=== PATIENT | female | born 1955 | race Caucasian/White ===

== ENCOUNTER 2019-01-10 17:21 | Inpatient (IN) | payer BC, OTHER ==
[~2019-01-10 17:21] MED LIST: EPINEPHrine 1 MG/ML SDV IV ONE; Ketamine 500 mg/10 ML MDV IV ONE; Ketorolac 30 MG/ML SDV IVPUSH ONE; Lactated Ringers 1,000 ML IV ONE; Midazolam 1 MG/ML 2 ML SDV IV ONE; Morphine PF 10 MG/10 ML SDV IV ONE; Ondansetron 4 MG/2 ML SDV IVPUSH ONE; Propofol 200 MG/20 ML SDV IV ONE; ceFAZolin 1 GM Vial IV ONE; ePHEDrine 50 MG/ML SDV IV ONE; fentaNYL 100 MCG/2 ML SDV IV ONE
--- NOTE | 2019-01-10 17:39 | EDM.PDOC ---
ED HPI GENERAL MEDICAL PROBLEM - General Stated Complaint: FELL HIP PAIN Time Seen by Provider: 01/10/19 17:25 Source of Information: Reports: Patient History Limitations: Reports: No Limitations - History of Present Illness INITIAL COMMENTS - FREE TEXT/NARRATIVE: 63-year-old female who states she was taking her dog for a walk and she misstepped and slipped with her sandals and fell landing on her right side and hip area. This occurred approximately 5 PM tonight. She did not hit her head. There was no loss of consciousness. She has severe pain in her right hip with any movement and palpation. There is an abrasion to her right elbow but she has full range of motion here and minimal pain. She also has pain in her left foot. She rates pain in her right hip as a 9/10. It is a sharp and spasm-like pain that goes to a 10/10 with any movement or palpitation. No nausea. No abdominal pain. She has normal sensation to her hands and feet. She states that she felt completely well prior to this occurring. There are no other associated signs or symptoms. There are no other modifying factors. Onset: Today (5 PM) Duration: Constant Location: Reports: Lower Extremity, Left (Left foot), Lower Extremity, Right ( Right hip area) Quality: Reports: Sharp, Other (Spasm-like) Severity: Severe Improves with: Reports: Immobilization, Rest Worsens with: Reports: Other (Palpation), Movement Context: Reports: Activity (As above) Associated Symptoms: Reports: No Other Symptoms Treatments J2EE ARCHITECT: Reports: Other (see below) (Nothing) hip right Pain Score (Numeric/FACES): 10 - Related Data Allergies Allergy/AdvReac Type Severity Reaction Status Date / Time X-RAY DDYE Allergy Severe Hives Uncoded 01/10/19 18:38 Home Meds: Home Meds traZODone 200 mg PO BEDTIME 02/08/14 [History] Escitalopram [Lexapro] 10 mg PO DAILY 04/13/14 [History] Pantoprazole Sodium [Protonix] 20 mg PO DAILY 04/13/14 [History] Losartan Potassium 50 mg PO DAILY 01/10/19 [History] Past Medical History Cardiovascular History: Reports: Hypertension Gastrointestinal History: Reports: GERD Psychiatric History: Reports: Anxiety, Depression - Past Surgical History Female Surgical History: Reports: Section (2) Social & Family History - Tobacco Use Smoking Status *Q: Never Smoker - Alcohol Use Alcohol Use History: No - Living Situation & Occupation Occupation: Retired Social History Comment: She is here with her two sons. Review of Systems - Review of Systems Review Of Systems: See Below Constitutional: Reports: No Symptoms, Other (It has been greater than 5 years since her last tetanus immunization.) Eyes: Reports: No Symptoms Ears: Reports: No Symptoms Nose: Reports: No Symptoms Mouth/Throat: Reports: No Symptoms Respiratory: Reports: No Symptoms Cardiovascular: Reports: No Symptoms GI/Abdominal: Reports: No Symptoms Genitourinary: Reports: No Symptoms Musculoskeletal: Reports: Foot Pain (Left foot pain), Joint Pain (Right hip pain ) Skin: Reports: Wound (Abrasion over right elbow) Neurological: Reports: No Symptoms ED EXAM, GENERAL - Physical Exam Exam: See Below Exam Limited By: No Limitations General Appearance: Alert, WD/WN, Moderate Distress Eye Exam: Bilateral Eye: EOMI, Normal Inspection, PERRL Ears: Normal External Exam Ear Exam: Bilateral Ear: Auricle Normal Nose: Normal Inspection, Normal Mucosa, No Blood Throat/Mouth: Normal Inspection, Normal Lips, Normal Oropharynx, Normal Voice, No Airway Compromise Head: Atraumatic, Normocephalic Neck: Normal Inspection, Supple, Non-Tender, Full Range of Motion Respiratory/Chest: No Respiratory Distress, Lungs Clear, Normal Breath Sounds, No Accessory Muscle Use, Chest Non-Tender Cardiovascular: Normal Peripheral Pulses, Regular Rate, Rhythm, No Edema, No JVD Peripheral Pulses: 2+: Radial (L), Radial (R), Dorsalis Pedis (L), Dorsalis Pedis (R) GI/Abdominal: Normal Bowel Sounds, Soft, Non-Tender, No Mass Back Exam: Normal Inspection Extremities: No Pedal Edema, Normal Capillary Refill, Other (Definitely tender over right hip with apparent shortening of the right lower extremity. There is some tenderness with palpation to the left lateral foot but noted bony deformity. There is full active range of motion in the right elbow without pain and there is no deformity.) Neurological: Alert, Oriented, CN II-XII Intact, Normal Cognition, No Motor/ Sensory Deficits Skin Exam: Warm, Dry, Normal Color, No Rash, Wound/Incision (Abrasion over the right elbow.) EKG INTERPRETATION EKG Date: 01/10/19 Time: 19:07 Rhythm: NSR Rate (Beats/Min): 62 [place]: Normal P-Wave: Present QRS: Normal ST-T: Normal QT: Normal Comparison: NA - No Prior EKG Course - Vital Signs Last Recorded V/S: Last Vital Signs Temp 36.4 C 01/10/19 19:25 Pulse 66 01/10/19 19:25 Resp 17 01/10/19 19:25 BP 166/96 H 01/10/19 19:25 Pulse Ox 96 01/10/19 19:25 - Orders/Labs/Meds Orders: Active Orders 24 hr Category Date Time Status EKG Documentation Completion [RC] ASDIRECTED Care 01/10/19 18:32 Active Insert Urinary Catheter [OM.PC] Q24H Care 01/10/19 18:45 Ordered Urinary Catheter Assessment [RC] QSHIFT Care 01/10/19 18:32 Active Vaccines to be Administered [RC] PER UNIT ROUTINE Care 01/10/19 17:42 Active Elbow Min 3V Rt [CR] Stat Exams 01/10/19 19:26 Taken Foot Comp Min 3V Lt [CR] Stat Exams 01/10/19 17:39 Taken Hip Min 2V or 3V w Pelvis Rt [CR] Stat Exams 01/10/19 17:39 Taken Sodium Chloride 0.9% [Normal Saline] 1,000 ml Med 01/10/19 17:45 Active IV ASDIRECTED Sodium Chloride 0.9% [Saline Flush] Med 01/10/19 17:39 Active 10 ml FLUSH ASDIRECTED PRN Peripheral IV Insertion Adult [OM.PC] Routine Oth 01/10/19 17:39 Ordered EKG 12 Lead [EK] Routine Ther 01/10/19 18:31 Ordered Medication Orders Sodium Chloride (Normal Saline) 1,000 mls @ 200 mls/hr IV ASDIRECTED OLIVE Last Admin: 01/10/19 18:40 Dose: 200 mls/hr Sodium Chloride (Saline Flush) 10 ml FLUSH ASDIRECTED PRN PRN Reason: Keep Vein Open Last Admin: 01/10/19 17:53 Dose: 10 ml Labs: Laboratory Tests 01/10/19 01/10/19 01/10/19 Range/Units 17:55 17:55 17:55 WBC 7.4 (4.5-12.0) X10-3/uL RBC 4.68 (3.23-5.20) x10(6)uL Hgb 14.2 (11.5-15.5) g/dL Hct 40.5 (30.0-51.3) % MCV 86.6 (80-96) fL MCH 30.3 (27.7-33.6) pg MCHC 35.0 (32.2-35.4) g/dL RDW 12.0 (11.5-15.5) % Plt Count 213 (125-369) X10(3)uL MPV 8.3 (7.4-10.4) fL Neut % (Auto) 59.4 (46-82) % Lymph % (Auto) 30.6 (13-37) % [place] % (Auto) 7.6 (4-12) % Eos % (Auto) 2 (1.0-5.0) % Baso % (Auto) 0 (0-2) % Neut # (Auto) 4.3 (1.6-8.3) # Lymph # (Auto) 2.3 (0.6-5.0) # [place] # (Auto) 0.6 (0.0-1.3) # Eos # (Auto) 0.2 (0.0-0.8) # Baso # (Auto) 0.0 (0.0-0.2) # PT 10.8 (8.7-11.1) INR 1.11 (0.89-1.13) Sodium 140 (135-145) mmol/L Potassium 3.5 (3.5-5.3) mmol/L Chloride 104 (100-110) mmol/L Carbon Dioxide 29 (21-32) mmol/L BUN 16 (7-18) mg/dL Creatinine 0.7 (0.55-1.02) mg/dL Est Cr Clr Drug Dosing TNP Estimated GFR (MDRD) > 60 (>60) BUN/Creatinine Ratio 22.9 H (9-20) Glucose 123 H (80-116) mg/dL Calcium 8.9 (8.6-10.2) mg/dL Total Bilirubin 0.4 (0.1-1.3) mg/dL AST 18 (5-25) IU/L ALT 33 (12-36) U/L Alkaline Phosphatase 64 (56-112) IU/L Total Protein 6.9 (6.0-8.0) g/dL Albumin 3.8 (3.2-4.6) g/dL Globulin 3.1 g/dL Albumin/Globulin Ratio 1.2 Urine Color (YELLOW) Urine Appearance (CLEAR) Urine pH (5.0-6.5) Ur Specific [place] (1.010-1.025) Urine Protein (NEGATIVE) mg/dL Urine Glucose (UA) (NORMAL) mg/dL Urine Ketones (NEGATIVE) mg/dL Urine Occult Blood (NEGATIVE) Urine Nitrite (NEGATIVE) Urine Bilirubin (NEGATIVE) Urine Urobilinogen (NEGATIVE) mg/dL Ur Leukocyte Esterase (NEGATIVE) Urine RBC (0-5) Urine WBC (0-5) Ur Squamous Epith Cells (NS,R,O) Urine Bacteria (NS) 01/10/19 Range/Units 18:50 WBC (4.5-12.0) X10-3/uL RBC (3.23-5.20) x10(6)uL Hgb (11.5-15.5) g/dL Hct (30.0-51.3) % MCV (80-96) fL MCH (27.7-33.6) pg MCHC (32.2-35.4) g/dL RDW (11.5-15.5) % Plt Count (125-369) X10(3)uL MPV (7.4-10.4) fL Neut % (Auto) (46-82) % Lymph % (Auto) (13-37) % [place] % (Auto) (4-12) % Eos % (Auto) (1.0-5.0) % Baso % (Auto) (0-2) % Neut # (Auto) (1.6-8.3) # Lymph # (Auto) (0.6-5.0) # [place] # (Auto) (0.0-1.3) # Eos # (Auto) (0.0-0.8) # Baso # (Auto) (0.0-0.2) # PT (8.7-11.1) INR (0.89-1.13) Sodium (135-145) mmol/L Potassium (3.5-5.3) mmol/L Chloride (100-110) mmol/L Carbon Dioxide (21-32) mmol/L BUN (7-18) mg/dL Creatinine (0.55-1.02) mg/dL Est Cr Clr Drug Dosing Estimated GFR (MDRD) (>60) BUN/Creatinine Ratio (9-20) Glucose (80-116) mg/dL Calcium (8.6-10.2) mg/dL Total Bilirubin (0.1-1.3) mg/dL AST (5-25) IU/L ALT (12-36) U/L Alkaline Phosphatase (56-112) IU/L Total Protein (6.0-8.0) g/dL Albumin (3.2-4.6) g/dL Globulin g/dL Albumin/Globulin Ratio Urine Color Yellow (YELLOW) Urine Appearance Clear (CLEAR) Urine pH 5.0 (5.0-6.5) Ur Specific [place] 1.020 (1.010-1.025) Urine Protein Negative (NEGATIVE) mg/dL Urine Glucose (UA) Normal (NORMAL) mg/dL Urine Ketones Negative (NEGATIVE) mg/dL Urine Occult Blood Negative (NEGATIVE) Urine Nitrite Negative (NEGATIVE) Urine Bilirubin Negative (NEGATIVE) Urine Urobilinogen Normal (NEGATIVE) mg/dL Ur Leukocyte Esterase Negative (NEGATIVE) Urine RBC 0-5 (0-5) Urine WBC 0-5 (0-5) Ur Squamous Epith Cells Occasional (NS,R,O) Urine Bacteria Rare H (NS) Meds: Medications Generic Name Dose Route Start Last Admin Trade Name Freq PRN Reason Stop Dose Admin Sodium Chloride 1,000 mls @ 200 mls/hr 01/10/19 17:45 01/10/19 18:40 Normal Saline IV 200 mls/hr ASDIRECTED OLIVE Administration Sodium Chloride 10 ml 01/10/19 17:39 01/10/19 17:53 Saline Flush FLUSH 10 ml ASDIRECTED PRN Administration Keep Vein Open Discontinued Medications Generic Name Dose Route Start Last Admin Trade Name Freq PRN Reason Stop Dose Admin Diphtheria/Tetanus/Acell Pertussis 0.5 ml 01/10/19 17:41 01/10/19 18:45 Adacel IM 01/10/19 17:42 0.5 ml .ONCE ONE Administration Hydromorphone HCl 1 mg 01/10/19 18:33 01/10/19 18:40 Dilaudid IVPUSH 01/10/19 18:34 1 mg ONETIME ONE Administration Morphine Sulfate 4 mg 01/10/19 17:41 01/10/19 17:53 Morphine IVPUSH 01/10/19 17:42 4 mg ONETIME ONE Administration Ondansetron HCl 4 mg 01/10/19 17:41 01/10/19 17:50 Zofran IVPUSH 01/10/19 17:42 4 mg ONETIME ONE Administration - Radiology Interpretation Free Text/Narrative:: X-ray of right hip and pelvis shows a right subcapital hip fracture that is displaced and possibly a greater trochanter fracture. X-ray of left foot shows a proximal fifth metatarsal fracture that is somewhat displaced. X-ray of right elbow shows no acute fracture. - Re-Assessments/Exams Free Text/Narrative Re-Assessment/Exam: 01/10/19 18:35: Patient has a right subcapital hip fracture on x-rays. She also has a left proximal fifth metatarsal fracture. She is still in quite a bit of pain that she would rate as a 9-10/10 and she appears quite uncomfortable. I will give the patient Dilaudid 1 mg IV and discussing this with the patient, a [place] catheter will be placed secondary to the severe pain that the patient has movement. She will need orthopedic specially services with repair of the right hip fracture. I will attempt to get in touch with Dr. Amin, orthopedist, in regard to this as the patient would prefer staying here for her care if possible. 01/10/19 19:45: I was able to contact Dr. Amin and he is able to provide orthopedic specially services and would plan on operative repair of the patient' s right hip on 01/11/2019. Therefore, I will admit the patient here with Dr. Connelly to assume care of the patient at 7 AM on 01/09/2019. She is somewhat improved after the pain medication but still has spasming type pain. She is vitally stable with O2 saturations of 96% range. The Hernandez fracture of her left foot will be treated with an orthotic boot for now. I will place admission orders. I discussed this with the patient and with her family and they are very much in agreement with the plans for being admitted here with Dr. Amin doing operative repair of her right hip. In addition, the patient's right elbow showed no evidence of acute fracture. Departure - Departure Time of Disposition: 19:55 Disposition: Admitted As Inpatient 65 Condition: Fair (Stable) Clinical Impression: Abrasion of right elbow, initial encounter, Contusion of right elbow, initial encounter Subcapital fracture of right hip Qualifiers: Encounter type: initial encounter Fracture type: closed Qualified Code(s): S72.011A - Unspecified intracapsular fracture of right femur, initial encounter for closed fracture Fracture of fifth metatarsal bone of left foot Qualifiers: Encounter type: initial encounter Fracture type: closed Fracture alignment: displaced Qualified Code(s): S92.352A - Displaced fracture of fifth metatarsal bone, left foot, initial encounter for closed fracture Fall from standing Qualifiers: Encounter type: initial encounter Qualified Code(s): W19.XXXA - Unspecified fall, initial encounter - Discharge Information Referrals: Mulugeta Rosa MD [Primary Care Provider] - - My Orders Last 24 Hours: My Active Orders 01/10/19 17:39 Foot Comp Min 3V Lt [CR] Stat Hip Min 2V or 3V w Pelvis Rt [CR] Stat Sodium Chloride 0.9% [Saline Flush] 10 ml FLUSH ASDIRECTED PRN Peripheral IV Insertion Adult [OM.PC] Routine 01/10/19 17:42 Vaccines to be Administered [RC] PER UNIT ROUTINE 01/10/19 17:45 Sodium Chloride 0.9% [Normal Saline] 1,000 ml IV ASDIRECTED 01/10/19 18:31 EKG 12 Lead [EK] Routine 01/10/19 18:32 EKG Documentation Completion [RC] ASDIRECTED Urinary Catheter Assessment [RC] QSHIFT 01/10/19 18:45 Insert Urinary Catheter [OM.PC] Q24H 01/10/19 19:26 Elbow Min 3V Rt [CR] Stat - Assessment/Plan Last 24 Hours: My Active Orders 01/10/19 17:39 Foot Comp Min 3V Lt [CR] Stat Hip Min 2V or 3V w Pelvis Rt [CR] Stat Sodium Chloride 0.9% [Saline Flush] 10 ml FLUSH ASDIRECTED PRN Peripheral IV Insertion Adult [OM.PC] Routine 01/10/19 17:42 Vaccines to be Administered [RC] PER UNIT ROUTINE 01/10/19 17:45 Sodium Chloride 0.9% [Normal Saline] 1,000 ml IV ASDIRECTED 01/10/19 18:31 EKG 12 Lead [EK] Routine 01/10/19 18:32 EKG Documentation Completion [RC] ASDIRECTED Urinary Catheter Assessment [RC] QSHIFT 01/10/19 18:45 Insert Urinary Catheter [OM.PC] Q24H 01/10/19 19:26 Elbow Min 3V Rt [CR] Stat
[2019-01-10] MEDS ORDERED: Morphine 4 MG/ML Syringe IVPUSH ONE (17:41)
[2019-01-10] MEDS ORDERED: Diphtheria,Pertussis(Acell),Tetanus Vaccine 0.5 ML SDV IM ONE (17:41)
[2019-01-10] MEDS ORDERED: Ondansetron 4 MG/2 ML SDV IVPUSH ONE (17:41)
[2019-01-10] MEDS ORDERED: Sodium Chloride 0.9% 1,000 ML IV SCH (17:45)
[2019-01-10] MEDS: Sodium Chloride 0.9% 10 ML Syringe FLUSH PRN (17:53)
[2019-01-10] MEDS ORDERED: HYDROmorphone 2 MG/ML SDV IVPUSH ONE (18:33)
[2019-01-10] MEDS ORDERED: Ondansetron 4 MG/2 ML SDV IV PRN (20:03)
[2019-01-10] MEDS: HYDROmorphone 2 MG/ML SDV IVPUSH PRN ×2 (20:33→22:57)
[2019-01-11] MEDS ORDERED: Ketorolac 30 MG/ML SDV IVPUSH SCH
[2019-01-11] MEDS: HYDROmorphone 2 MG/ML SDV IVPUSH PRN ×5 (01:01→13:15)
[2019-01-11] MEDS: Sodium Chloride 0.9% 1,000 ML IV SCH ×2 (01:09→09:00)
--- NOTE | 2019-01-11 08:42 | PCM.CONS ---
H&P History of Present Illness - General Date of Service: 01/11/19 Admit Problem/Dx: Admission Diagnosis/Problem Admission Diagnosis/Problem Hip fracture requiring operative repair Source of Information: Patient, Provider History Limitations: Reports: No Limitations - History of Present Illness Onset of Symptoms: Reports: Sudden Symptom Onset Date: 01/10/19 Duration of Symptoms: Reports: Day(s): Location: Reports: Lower Extremity, Left, Lower Extremity, Right Quality: Reports: Ache, Stabbing, Throbbing Severity: Moderate Improves with: Reports: Immobilization Worsens with: Reports: Movement Associated Symptoms: Reports: No Other Symptoms hip right Pain Score (Numeric/FACES): 8 - Related Data Allergies/Adverse Reactions: Allergies Allergy/AdvReac Type Severity Reaction Status Date / Time X-RAY DDYE Allergy Severe Hives Uncoded 01/10/19 18:38 Home Medications: Home Meds traZODone 200 mg PO BEDTIME 02/08/14 [History] Escitalopram [Lexapro] 10 mg PO DAILY 04/13/14 [History] Pantoprazole Sodium [Protonix] 20 mg PO DAILY 04/13/14 [History] Losartan Potassium 50 mg PO DAILY 01/10/19 [History] Past Medical History HEENT History: Reports: Impaired Vision Cardiovascular History: Reports: Hypertension Gastrointestinal History: Reports: GERD 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: Psychiatric History: Reports: Anxiety, Depression Endocrine/Metabolic History: Reports: Obesity/BMI 30+ - Past Surgical History GI Surgical History: Reports: Colonoscopy, Polypectomy Female Surgical History: Reports: Section Social & Family History - Tobacco Use Smoking Status *Q: Former Smoker Used Tobacco, but Quit: Yes Month/Year Tobacco Last Used: 2014 - Caffeine Use Caffeine Use: Reports: Coffee, Energy Drinks, Soda - Recreational Drug Use Recreational Drug Use: No - Living Situation & Occupation Occupation: Retired H&P Review of Systems - Review of Systems: Review Of Systems: See Below General: Reports: No Symptoms HEENT: Reports: No Symptoms Pulmonary: Reports: No Symptoms Cardiovascular: Reports: No Symptoms Gastrointestinal: Reports: No Symptoms Genitourinary: Reports: No Symptoms Musculoskeletal: Reports: Leg Pain, Foot Pain, Joint Pain, Joint Swelling Skin: Reports: No Symptoms Psychiatric: Reports: No Symptoms Neurological: Reports: No Symptoms Hematologic/Lymphatic: Reports: No Symptoms Immunologic: Reports: No Symptoms Exam - Exam Exam: See Below - Vital Signs Vital Signs: Last Vital Signs Temp 98.5 F 01/11/19 06:10 Pulse 73 01/11/19 06:10 Resp 18 01/11/19 06:10 BP 126/83 01/11/19 06:10 Pulse Ox 93 L 01/11/19 06:10 Weight: 165 lb 3.2 oz - Exam General: Alert, Oriented, Cooperative, Mild Distress HEENT: PERRLA, EOMI, Hearing Intact, Pupils Equal, Pupils Reactive Neck: Supple, Trachea Midline Lungs: Normal Respiratory Effort GI/Abdominal Exam: No Distention Extremities: No Pedal Edema, Leg Pain Peripheral Pulses: 2+: Posterior Tibial (L), Posterior Tibial (R), Dorsalis Pedis (L), Dorsalis Pedis (R) Skin: Warm, Dry, Intact Neuro Extensive - Mental Status: Alert, Oriented x3, Normal Mood/Affect, Normal Cognition, Memory Intact Psychiatric: Alert, Normal Affect - Patient Data Lab Results Last 24 hrs: Laboratory Results - last 24 hr 01/10/19 01/10/19 01/10/19 Range/Units 17:55 17:55 17:55 WBC 7.4 (4.5-12.0) X10-3/uL RBC 4.68 (3.23-5.20) x10(6)uL Hgb 14.2 (11.5-15.5) g/dL Hct 40.5 (30.0-51.3) % MCV 86.6 (80-96) fL MCH 30.3 (27.7-33.6) pg MCHC 35.0 (32.2-35.4) g/dL RDW 12.0 (11.5-15.5) % Plt Count 213 (125-369) X10(3)uL MPV 8.3 (7.4-10.4) fL Neut % (Auto) 59.4 (46-82) % Lymph % (Auto) 30.6 (13-37) % [place] % (Auto) 7.6 (4-12) % Eos % (Auto) 2 (1.0-5.0) % Baso % (Auto) 0 (0-2) % Neut # (Auto) 4.3 (1.6-8.3) # Lymph # (Auto) 2.3 (0.6-5.0) # [place] # (Auto) 0.6 (0.0-1.3) # Eos # (Auto) 0.2 (0.0-0.8) # Baso # (Auto) 0.0 (0.0-0.2) # PT 10.8 (8.7-11.1) INR 1.11 (0.89-1.13) Sodium 140 (135-145) mmol/L Potassium 3.5 (3.5-5.3) mmol/L Chloride 104 (100-110) mmol/L Carbon Dioxide 29 (21-32) mmol/L BUN 16 (7-18) mg/dL Creatinine 0.7 (0.55-1.02) mg/dL Est Cr Clr Drug Dosing TNP Estimated GFR (MDRD) > 60 (>60) BUN/Creatinine Ratio 22.9 H (9-20) Glucose 123 H (80-116) mg/dL Calcium 8.9 (8.6-10.2) mg/dL Total Bilirubin 0.4 (0.1-1.3) mg/dL AST 18 (5-25) IU/L ALT 33 (12-36) U/L Alkaline Phosphatase 64 (56-112) IU/L Total Protein 6.9 (6.0-8.0) g/dL Albumin 3.8 (3.2-4.6) g/dL Globulin 3.1 g/dL Albumin/Globulin Ratio 1.2 Urine Color (YELLOW) Urine Appearance (CLEAR) Urine pH (5.0-6.5) Ur Specific [place] (1.010-1.025) Urine Protein (NEGATIVE) mg/dL Urine Glucose (UA) (NORMAL) mg/dL Urine Ketones (NEGATIVE) mg/dL Urine Occult Blood (NEGATIVE) Urine Nitrite (NEGATIVE) Urine Bilirubin (NEGATIVE) Urine Urobilinogen (NEGATIVE) mg/dL Ur Leukocyte Esterase (NEGATIVE) Urine RBC (0-5) Urine WBC (0-5) Ur Squamous Epith Cells (NS,R,O) Urine Bacteria (NS) Blood Type Gel Antibody Screen 01/10/19 01/10/19 Range/Units 18:05 18:50 WBC (4.5-12.0) X10-3/uL RBC (3.23-5.20) x10(6)uL Hgb (11.5-15.5) g/dL Hct (30.0-51.3) % MCV (80-96) fL MCH (27.7-33.6) pg MCHC (32.2-35.4) g/dL RDW (11.5-15.5) % Plt Count (125-369) X10(3)uL MPV (7.4-10.4) fL Neut % (Auto) (46-82) % Lymph % (Auto) (13-37) % [place] % (Auto) (4-12) % Eos % (Auto) (1.0-5.0) % Baso % (Auto) (0-2) % Neut # (Auto) (1.6-8.3) # Lymph # (Auto) (0.6-5.0) # [place] # (Auto) (0.0-1.3) # Eos # (Auto) (0.0-0.8) # Baso # (Auto) (0.0-0.2) # PT (8.7-11.1) INR (0.89-1.13) Sodium (135-145) mmol/L Potassium (3.5-5.3) mmol/L Chloride (100-110) mmol/L Carbon Dioxide (21-32) mmol/L BUN (7-18) mg/dL Creatinine (0.55-1.02) mg/dL Est Cr Clr Drug Dosing Estimated GFR (MDRD) (>60) BUN/Creatinine Ratio (9-20) Glucose (80-116) mg/dL Calcium (8.6-10.2) mg/dL Total Bilirubin (0.1-1.3) mg/dL AST (5-25) IU/L ALT (12-36) U/L Alkaline Phosphatase (56-112) IU/L Total Protein (6.0-8.0) g/dL Albumin (3.2-4.6) g/dL Globulin g/dL Albumin/Globulin Ratio Urine Color Yellow (YELLOW) Urine Appearance Clear (CLEAR) Urine pH 5.0 (5.0-6.5) Ur Specific [place] 1.020 (1.010-1.025) Urine Protein Negative (NEGATIVE) mg/dL Urine Glucose (UA) Normal (NORMAL) mg/dL Urine Ketones Negative (NEGATIVE) mg/dL Urine Occult Blood Negative (NEGATIVE) Urine Nitrite Negative (NEGATIVE) Urine Bilirubin Negative (NEGATIVE) Urine Urobilinogen Normal (NEGATIVE) mg/dL Ur Leukocyte Esterase Negative (NEGATIVE) Urine RBC 0-5 (0-5) Urine WBC 0-5 (0-5) Ur Squamous Epith Cells Occasional (NS,R,O) Urine Bacteria Rare H (NS) Blood Type O POSITIVE Gel Antibody Screen Negative Result Diagrams: 01/10/19 17:55 01/10/19 17:55 Consult PN Assessment/Plan POD#: 0 Procedures: Procedures ASSAY OF AMYLASE (04/13/14) ASSAY OF ETHANOL (04/13/14) CHEST X-RAY 2VW FRONTAL&LATL (04/13/14) COLONOSCOPY W/LESION REMOVAL (02/09/14) COMPLETE CBC W/AUTO DIFF WBC (04/13/14) COMPREHEN METABOLIC PANEL (04/13/14) EGD BIOPSY SINGLE/MULTIPLE (02/09/14) EMERGENCY DEPT VISIT (04/13/14) EMERGENCY DEPT VISIT (04/13/14) RBC SED RATE NONAUTOMATED (04/13/14) ROUTINE VENIPUNCTURE (04/13/14) TISSUE EXAM BY PATHOLOGIST (02/09/14) URINALYSIS AUTO W/SCOPE (04/13/14) (1) Fracture of fifth metatarsal bone of left foot SNOMED Code(s): 141993857 Code(s): S92.352A - DISP FX OF FIFTH METATARSAL BONE, LEFT FOOT, INIT Current Visit: Yes Qualifiers: Encounter type: initial encounter Fracture type: closed Fracture alignment: displaced Qualified Code(s): S92.352A - Displaced fracture of fifth metatarsal bone, left foot, initial encounter for closed fracture (2) Subcapital fracture of right hip SNOMED Code(s): 799379387 Code(s): S72.011A - UNSP INTRACAPSULAR FRACTURE OF RIGHT FEMUR, INIT FOR CLOS FX Current Visit: Yes Qualifiers: Encounter type: initial encounter Fracture type: closed Qualified Code(s) : S72.011A - Unspecified intracapsular fracture of right femur, initial encounter for closed fracture Problem List Initiated/Reviewed/Updated: Yes Plan: Plan: To OR today for R hip hemiarthroplasty. No hx of right groin pain. Advised recommended left 5th MT base fx ORIF with headless compression screws. Will plan to swing bed due to polytrauma with difficulty weight bearing. Will plan on PT/OT/DVT prophylaxis post op. BDS
[2019-01-11] MEDS: Sodium Chloride 0.9% 10 ML Syringe FLUSH PRN ×2 (08:59→11:26)
--- NOTE | 2019-01-11 09:19 | PCM.HP ---
H&P History of Present Illness - General Date of Service: 01/11/19 Admit Problem/Dx: Admission Diagnosis/Problem Admission Diagnosis/Problem Hip fracture requiring operative repair Source of Information: Patient, Old Records History Limitations: Reports: No Limitations - History of Present Illness Initial Comments - Free Text/Narative: Tashia is a 63 yo female that fell and sustained a left hip fracture,and left foot fracture. She is healthy with the exception of HTN,mood disorder and tobacco abuse. hip right Pain Score (Numeric/FACES): 8 - Related Data Allergies/Adverse Reactions: Allergies Allergy/AdvReac Type Severity Reaction Status Date / Time X-RAY DDYE Allergy Severe Hives Uncoded 01/10/19 18:38 Home Medications: Home Meds traZODone 200 mg PO BEDTIME PRN 02/08/14 [History] Losartan Potassium 50 mg PO DAILY 01/10/19 [History] Escitalopram [Lexapro] 20 mg PO DAILY 01/11/19 [History] Loratadine [Claritin] 10 mg PO DAILY 01/11/19 [History] Pantoprazole [ProTONIX] 40 mg PO DAILY 01/11/19 [History] Past Medical History HEENT History: Reports: Impaired Vision Cardiovascular History: Reports: Hypertension Gastrointestinal History: Reports: GERD 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: Other OB/BYN History: Psychiatric History: Reports: Anxiety, Depression Endocrine/Metabolic History: Reports: Obesity/BMI 30+ - Past Surgical History GI Surgical History: Reports: Colonoscopy, Polypectomy Female Surgical History: Reports: Section Social & Family History - Tobacco Use Smoking Status *Q: Former Smoker Used Tobacco, but Quit: Yes Month/Year Tobacco Last Used: 2014 - Caffeine Use Caffeine Use: Reports: Coffee, Energy Drinks, Soda - Recreational Drug Use Recreational Drug Use: No - Living Situation & Occupation Occupation: Retired H&P Review of Systems - Review of Systems: Review Of Systems: ROS reveals no pertinent complaints other than HPI. Exam - Exam Exam: See Below - Vital Signs Vital Signs: Last Vital Signs Temp 98.5 F 01/11/19 06:10 Pulse 73 01/11/19 06:10 Resp 18 01/11/19 06:10 BP 126/83 01/11/19 06:10 Pulse Ox 93 L 01/11/19 06:10 Weight: 74.933 kg - Exam Quality Assessment: Supplemental Oxygen General: Alert, Oriented, 4 HEENT: PERRLA, Hearing Intact, Mucosa Moist & [place], Nares Patent, Normal Nasal Septum, Posterior Pharynx Clear, Conjunctiva Clear, EOMI, EACs Clear, TMs Clear Neck: Supple, Trachea Midline, 2 Lungs: Clear to Auscultation, Normal Respiratory Effort Cardiovascular: Regular Rate, Regular Rhythm GI/Abdominal Exam: Normal Bowel Sounds, Soft, Non-Tender, No Organomegaly, No Distention, No Abnormal Bruit, No Mass, Pelvis Stable (Female) Exam: Deferred Rectal (Female) Exam: Deferred Back Exam: No: Full Range of Motion Extremities: No: Normal Range of Motion Skin: Warm, Dry, Intact Neurological: Cranial Nerves Intact, Reflexes Equal Bilateral Neuro Extensive - Mental Status: Alert, Oriented x3, Normal Mood/Affect, Normal Cognition Neuro Extensive - Motor, Sensory, Reflexes: CN II-XII Intact, Normal Gait, Normal Reflexes Psychiatric: Alert, Normal Affect, Normal Mood - Patient Data Lab Results Last 24 hrs: Laboratory Results - last 24 hr 01/10/19 01/10/19 01/10/19 Range/Units 17:55 17:55 17:55 WBC 7.4 (4.5-12.0) X10-3/uL RBC 4.68 (3.23-5.20) x10(6)uL Hgb 14.2 (11.5-15.5) g/dL Hct 40.5 (30.0-51.3) % MCV 86.6 (80-96) fL MCH 30.3 (27.7-33.6) pg MCHC 35.0 (32.2-35.4) g/dL RDW 12.0 (11.5-15.5) % Plt Count 213 (125-369) X10(3)uL MPV 8.3 (7.4-10.4) fL Neut % (Auto) 59.4 (46-82) % Lymph % (Auto) 30.6 (13-37) % Granite % (Auto) 7.6 (4-12) % Eos % (Auto) 2 (1.0-5.0) % Baso % (Auto) 0 (0-2) % Neut # (Auto) 4.3 (1.6-8.3) # Lymph # (Auto) 2.3 (0.6-5.0) # Granite # (Auto) 0.6 (0.0-1.3) # Eos # (Auto) 0.2 (0.0-0.8) # Baso # (Auto) 0.0 (0.0-0.2) # PT 10.8 (8.7-11.1) INR 1.11 (0.89-1.13) Sodium 140 (135-145) mmol/L Potassium 3.5 (3.5-5.3) mmol/L Chloride 104 (100-110) mmol/L Carbon Dioxide 29 (21-32) mmol/L BUN 16 (7-18) mg/dL Creatinine 0.7 (0.55-1.02) mg/dL Est Cr Clr Drug Dosing TNP Estimated GFR (MDRD) > 60 (>60) BUN/Creatinine Ratio 22.9 H (9-20) Glucose 123 H (80-116) mg/dL Calcium 8.9 (8.6-10.2) mg/dL Total Bilirubin 0.4 (0.1-1.3) mg/dL AST 18 (5-25) IU/L ALT 33 (12-36) U/L Alkaline Phosphatase 64 (56-112) IU/L Total Protein 6.9 (6.0-8.0) g/dL Albumin 3.8 (3.2-4.6) g/dL Globulin 3.1 g/dL Albumin/Globulin Ratio 1.2 Urine Color (YELLOW) Urine Appearance (CLEAR) Urine pH (5.0-6.5) Ur Specific [place] (1.010-1.025) Urine Protein (NEGATIVE) mg/dL Urine Glucose (UA) (NORMAL) mg/dL Urine Ketones (NEGATIVE) mg/dL Urine Occult Blood (NEGATIVE) Urine Nitrite (NEGATIVE) Urine Bilirubin (NEGATIVE) Urine Urobilinogen (NEGATIVE) mg/dL Ur Leukocyte Esterase (NEGATIVE) Urine RBC (0-5) Urine WBC (0-5) Ur Squamous Epith Cells (NS,R,O) Urine Bacteria (NS) Blood Type Gel Antibody Screen 01/10/19 01/10/19 Range/Units 18:05 18:50 WBC (4.5-12.0) X10-3/uL RBC (3.23-5.20) x10(6)uL Hgb (11.5-15.5) g/dL Hct (30.0-51.3) % MCV (80-96) fL MCH (27.7-33.6) pg MCHC (32.2-35.4) g/dL RDW (11.5-15.5) % Plt Count (125-369) X10(3)uL MPV (7.4-10.4) fL Neut % (Auto) (46-82) % Lymph % (Auto) (13-37) % Granite % (Auto) (4-12) % Eos % (Auto) (1.0-5.0) % Baso % (Auto) (0-2) % Neut # (Auto) (1.6-8.3) # Lymph # (Auto) (0.6-5.0) # Granite # (Auto) (0.0-1.3) # Eos # (Auto) (0.0-0.8) # Baso # (Auto) (0.0-0.2) # PT (8.7-11.1) INR (0.89-1.13) Sodium (135-145) mmol/L Potassium (3.5-5.3) mmol/L Chloride (100-110) mmol/L Carbon Dioxide (21-32) mmol/L BUN (7-18) mg/dL Creatinine (0.55-1.02) mg/dL Est Cr Clr Drug Dosing Estimated GFR (MDRD) (>60) BUN/Creatinine Ratio (9-20) Glucose (80-116) mg/dL Calcium (8.6-10.2) mg/dL Total Bilirubin (0.1-1.3) mg/dL AST (5-25) IU/L ALT (12-36) U/L Alkaline Phosphatase (56-112) IU/L Total Protein (6.0-8.0) g/dL Albumin (3.2-4.6) g/dL Globulin g/dL Albumin/Globulin Ratio Urine Color Yellow (YELLOW) Urine Appearance Clear (CLEAR) Urine pH 5.0 (5.0-6.5) Ur Specific [place] 1.020 (1.010-1.025) Urine Protein Negative (NEGATIVE) mg/dL Urine Glucose (UA) Normal (NORMAL) mg/dL Urine Ketones Negative (NEGATIVE) mg/dL Urine Occult Blood Negative (NEGATIVE) Urine Nitrite Negative (NEGATIVE) Urine Bilirubin Negative (NEGATIVE) Urine Urobilinogen Normal (NEGATIVE) mg/dL Ur Leukocyte Esterase Negative (NEGATIVE) Urine RBC 0-5 (0-5) Urine WBC 0-5 (0-5) Ur Squamous Epith Cells Occasional (NS,R,O) Urine Bacteria Rare H (NS) Blood Type O POSITIVE Gel Antibody Screen Negative Result Diagrams: 01/10/19 17:55 01/10/19 17:55 EKG INTERPRETATION EKG Date: 01/10/19 Rhythm: NSR - Problem List (1) Fall from standing SNOMED Code(s): 5052162 ICD Code: W19.XXXA - UNSPECIFIED FALL, INITIAL ENCOUNTER Status: Acute Current Visit: Yes Qualifiers: Encounter type: initial encounter Qualified Code(s): W19.XXXA - Unspecified fall, initial encounter (2) HTN (hypertension) SNOMED Code(s): 37167780 ICD Code: I10 - ESSENTIAL (PRIMARY) HYPERTENSION Status: Acute Current Visit: Yes Qualifiers: Hypertension type: essential hypertension Qualified Code(s): I10 - Essential (primary) hypertension (3) Fracture of fifth metatarsal bone of left foot SNOMED Code(s): 975365685 ICD Code: S92.352A - DISP FX OF FIFTH METATARSAL BONE, LEFT FOOT, INIT Status: Acute Current Visit: Yes Qualifiers: Encounter type: initial encounter Fracture type: closed Fracture alignment: displaced Qualified Code(s): S92.352A - Displaced fracture of fifth metatarsal bone, left foot, initial encounter for closed fracture (4) Subcapital fracture of right hip SNOMED Code(s): 663641602 ICD Code: S72.011A - UNSP INTRACAPSULAR FRACTURE OF RIGHT FEMUR, INIT FOR CLOS FX Status: Acute Current Visit: Yes Qualifiers: Encounter type: initial encounter Fracture type: closed Qualified Code(s) : S72.011A - Unspecified intracapsular fracture of right femur, initial encounter for closed fracture Problem List Initiated/Reviewed/Updated: Yes Orders Last 24hrs: Active Orders 24 hr Category Date Time Status Admission Status [Patient Status] [ADT] Routine ADT 01/10/19 20:00 Active Cardiac Monitoring [RC] .As Directed Care 01/10/19 20:00 Active Height and Weight [RC] 06 Care 01/10/19 20:03 Active Insert Urinary Catheter [OM.PC] Q24H Care 01/10/19 18:45 Ordered Intake and Output [RC] 06,14,22 Care 01/10/19 20:05 Active Notify Provider Consults [RC] ASDIRECTED Care 01/10/19 20:09 Active Oxygen Therapy [RC] PRN Care 01/10/19 20:03 Active Pulse Oximetry [RC] CONTINUOUS Care 01/10/19 20:05 Active Urinary Catheter Assessment [RC] 00,08,16 Care 01/10/19 18:32 Active Vital Signs [RC] 00,04,08,12,16,20 Care 01/10/19 20:03 Active Consult to Physician [CONS] Routine Cons 01/10/19 20:03 Ordered Nothing per Oral After Midnight Diet [DIET] Diet 01/10/19 Dinner Active Elbow Min 3V Rt [CR] Stat Exams 01/10/19 19:26 Taken Foot Comp Min 3V Lt [CR] Stat Exams 01/10/19 17:39 Taken Hip Min 2V or 3V w Pelvis Rt [CR] Stat Exams 01/10/19 17:39 Taken HYDROmorphone [Dilaudid] Med 01/10/19 20:03 Active 0.5 mg IVPUSH Q2H PRN Ondansetron [Zofran] Med 01/10/19 20:03 Active 4 mg IV Q6H PRN Sodium Chloride 0.9% [Normal Saline] 1,000 ml Med 01/10/19 20:15 Active IV ASDIRECTED Sodium Chloride 0.9% [Saline Flush] Med 01/10/19 17:39 Active 10 ml FLUSH ASDIRECTED PRN Peripheral IV Insertion Adult [OM.PC] Routine Oth 01/10/19 17:39 Ordered Resuscitation Status Routine Resus Stat 01/10/19 20:03 Ordered EKG 12 Lead [EK] Routine Ther 01/10/19 18:31 Stop Req Medication Orders Hydromorphone HCl (Dilaudid) 0.5 mg IVPUSH Q2H PRN PRN Reason: Pain (severe 7-10) Last Admin: 01/11/19 08:58 Dose: 0.5 mg Admin: 01/11/19 06:18 Dose: 0.5 mg Admin: 01/11/19 01:01 Dose: 0.5 mg Admin: 01/10/19 22:57 Dose: 0.5 mg Admin: 01/10/19 20:33 Dose: 0.5 mg Sodium Chloride (Normal Saline) 1,000 mls @ 125 mls/hr IV ASDIRECTED [facility] Last Admin: 01/11/19 09:00 Dose: 125 mls/hr Infusion: 01/11/19 09:00 Dose: 125 mls/hr Admin: 01/11/19 01:09 Dose: 125 mls/hr Ondansetron HCl (Zofran) 4 mg IV Q6H PRN PRN Reason: Nausea/Vomiting Sodium Chloride (Saline Flush) 10 ml FLUSH ASDIRECTED PRN PRN Reason: Keep Vein Open Last Admin: 01/11/19 08:59 Dose: 10 ml Admin: 01/10/19 17:53 Dose: 10 ml Assessment/Plan Comment:: She had mild hypoxia after Dilaudid. She is low risk for procedure planned. Resume home Meds after surgery
[2019-01-11] MEDS ORDERED: Sennosides 8.6 MG Tab PO PRN (13:43)
[2019-01-11] MEDS ORDERED: Ondansetron 4 MG/2 ML SDV IVPUSH PRN (13:43)
[2019-01-11] MEDS ORDERED: Naloxone 0.4 MG/ML SDV IVPUSH PRN ×2 (13:43→16:32)
[2019-01-11] MEDS ORDERED: Bisacodyl 5 MG Tab PO PRN (13:43)
[2019-01-11] MEDS ORDERED: Sodium Chloride 0.9% 10 ML Syringe FLUSH PRN (13:43)
[2019-01-11] MEDS ORDERED: diphenhydrAMINE 50 MG/ML SDV IVPUSH PRN (13:43)
[2019-01-11] MEDS ORDERED: Magnesium Hydroxide 400 MG/5 ML Susp 30 ML Cup PO PRN (13:43)
[2019-01-11] MEDS ORDERED: Docusate Sodium 100 MG Cap PO PRN (13:43)
[2019-01-11] MEDS ORDERED: Morphine 2 MG/ML Syringe IVPUSH PRN (13:43)
[2019-01-11] MEDS ORDERED: Ropivacaine 49.25 ML, Ketorolac 30 MG, EPINEPHrine 0.5 MG, cloNIDine 80 MCG, Sodium Chl... INJECT SCH ×5 (14:00)
[2019-01-11] MEDS ORDERED: Tranexamic Acid 3,000 MG, Sodium Chloride 0.9% 100 ML IRR ONE ×2 (14:15)
[2019-01-11] MEDS ORDERED: Bupivacaine 0.5%/EPINEPHrine 1:200,000 50 ML MDV INJECT ONE (16:00)
--- NOTE | 2019-01-11 16:12 | PCM.OPNOTE ---
- General Post-Op/Procedure Note Date of Surgery/Procedure: 01/11/19 Operative Procedure(s): 1) right hip bipolar hemiarthroplasty. 2) orif left 5th metatarsal base Pre Op Diagnosis: 1) right hip subcapital neck fracture, closed. 2) 5th metatarsal base fracture, left, closed Post-Op Diagnosis: Same Anesthesia Technique: Combo Spinal/Epidural, Local, MAC Primary Surgeon: Wesley Amin Anesthesia Provider: Cinda Zamorano Spine Nurse: Natividad Morrow EBL in mLs: 150 Complications: None Condition: Fair Free Text/Narrative:: Intake & Output 01/11/19 01/11/19 01/11/19 06:59 14:59 22:59 Intake Total 885 858 Output Total 375 450 Balance 510 408
[2019-01-11] MEDS ORDERED: Nalbuphine 10 MG/1 ML Vial IVPUSH PRN (16:32)
[2019-01-11] MEDS: Acetaminophen 650 MG Tab.ER PO SCH ×2 (18:23→21:08)
[2019-01-11] MEDS: ceFAZolin 2 GM in Premix Bag 1 BAG IV SCH (21:08)
--- NOTE | 2019-01-11 21:24 | OR ---
DATE OF OPERATION: 01/11/2019 SURGEON: Wesley Amin DO PREOPERATIVE DIAGNOSES: 1. Right femoral neck fracture, closed. 2. Left 5th metatarsal base fracture, closed. POSTOPERATIVE DIAGNOSES: 1. Right femoral neck fracture, closed. 2. Left 5th metatarsal base fracture, closed. PROCEDURE: 1. Right hip bipolar hemiarthroplasty using DePuy size 3 femur, 28/45 mm bipolar head, 1.5 neck. 2. Open reduction and internal fixation, left 5th metatarsal base fracture. CHIEF LEARNING OFFICER: Natividad Morrow NP Nurse practitioner, Natividad Morrow NP, played an essential role in assisting in this case, helping to position the patient, retract structures as needed, as well as suturing and cutting sutures as indicated. Her presence improved patient's safety and decreased operative time. ANESTHESIOLOGIST: Cinda Zamorano CRNA ANESTHESIA: Spinal plus conscious sedation. FLUID: Lactated Ringer solution. ESTIMATED BLOOD LOSS: 150 mL. COMPLICATIONS: None. SPECIMEN: None. DISCHARGE DISPOSITION: Stable to PACU. HISTORY AND INDICATIONS FOR THE PROCEDURE: The patient was walking her dog last night when she tripped and fell sustaining the above-mentioned injury. She was seen in the emergency department where she was diagnosed with the above- mentioned injury. She was admitted to the hospital service and kept n.p.o. after midnight. I visited her this morning. I evaluated her and explained the risks and benefits of the procedure, and informed consent was obtained. DETAILS OF PROCEDURE: The patient was seen preoperatively by me and the anesthesia staff in the preoperative holding area where the operative site was marked. She was brought to the operative suite by anesthesia staff where spinal sedation was administered plus conscious sedation. She was placed into a left lateral recumbent position on a pegboard. All extremities were found to be well padded, and she had a well-placed axillary roll. The right lower extremity was then prepped and draped in sterile manner. A time-out was called identifying the correct patient, the correct procedure, the correct site, and that the antibiotics had been within an appropriate period of time. An incision was made approximately 4 cm proximal to the greater trochanter, extending down to the just distal level of the lesser trochanter and carried down to the fascia. Bleeding during the case was controlled with Bovie electrocautery. Gelpi's were used for initial retraction. I used a Perez to separate the subcutaneous fat from the iliotibial band. The iliotibial band was then incised with care not to go into the gluteal fascia. I then inserted a Charnley retractor for retraction. I then went through the gluteal fascia into the gluteus medius and gluteus minimus, starting at the level of lesser trochanter, coming around preserving a tendinous cuff around the greater trochanter. I then externally rotated the femur and made my cut just 1 cm above the lesser trochanter to the level of the greater trochanter. I then spent a great deal of time trying to remove the femoral head with great difficulty. I had to release the very thick capsule in 2 to [address], and then was finally able to remove it with a corkscrew and cleared out any bony debris. I then externally rotated the femur and then used a Bovie to clear the soft tissue over the greater trochanter. I then used a wash box operator to provide lateralization in the canal. I then used a canal finder, then a lateral entry reamer, then reamed from 0 to 4. I then broached from 1 to 3; 3 was very stable. I then inserted a 45 mm 1.5 mm neck bipolar trial. This provided excellent stability with no shuck and equal leg length. The component was then dislocated again. I removed all of my components, copiously irrigated with Betadine-infused irrigation, and then inserted my final components. We re-located the hip, took it through range of motion, which was very stable throughout internal and external rotation with no shuck. We then closed the gluteus medius, gluteus minimus, and capsule with #5 running Ethibond sutures, and then closed my iliotibial band with two #5 Ethibond and then a #2 Stratafix. I then closed the deep subcu and superficial subcu with a #2 Stratafix, followed by skin negrito, followed by Betadine-soaked Adaptic, sponges, and Medipore tape. We then removed all of our drapes and put out a new Bovie cautery. We put the patient into a supine position with a bump under the left hip and then prepped. We did a pre-scrub scrub over the foot as it was dirty, and then prepped and draped the left lower extremity. I used a sterilely draped fluoroscope to identify the base of the 5th metatarsal and then entered the base of the lateral aspect of the 5th metatarsal and then obliquely went through the fracture site with a K-wire to the other side. This measured 26 mm. I inserted a 2.5 mm headless cannulated compression screw across the fracture site. I took my final films and then copiously irrigated with Betadine infused irrigation and placed a Betadine-soaked Adaptic after placing [id number] 3-0 nylon sutures followed by sponges and a 3 inch Loi. She was then placed back into her walker boot. The patient was then allowed to awaken from MAC local. I did apply 0.5% Marcaine with epinephrine at the base of the foot prior to starting the procedure. She was then taken to the PACU in stable condition. /[id number] TUCKER/OFELIA
[2019-01-12] MEDS: Ketorolac 30 MG/ML SDV IVPUSH SCH ×2 (01:03→08:04)
[2019-01-12] MEDS: Sodium Chloride 0.9% 10 ML Syringe FLUSH PRN ×2 (01:04→08:07)
[2019-01-12] MEDS: ceFAZolin 2 GM in Premix Bag 1 BAG IV SCH (06:00)
[2019-01-12] MEDS: Acetaminophen 650 MG Tab.ER PO SCH ×4 (08:05→21:38)
[2019-01-12] MEDS: Aspirin 325 MG Tab.EC PO SCH (08:05)
--- NOTE | 2019-01-12 08:42 | PCM.PN ---
- General Info Date of Service: 01/12/19 Subjective Update: Had surgery yesterday. Was noted to be drowsy,hypoxic(88%) on RA. Has no complaints of SOB or CP this morning. Pain is well controlled. Functional Status: Reports: Pain Controlled, Tolerating Diet, Incentive Spirometry. Denies: Ambulating - Review of Systems Cardiovascular: Reports: No Symptoms Gastrointestinal: Reports: No Symptoms Genitourinary: Reports: No Symptoms - Patient Data Vitals - Most Recent: Last Vital Signs Temp 98.5 F 01/12/19 03:56 Pulse 71 01/12/19 03:56 Resp 18 01/12/19 03:56 BP 100/62 01/12/19 03:56 Pulse Ox 93 L 01/12/19 03:56 Weight - Most Recent: 75.523 kg I&O - Last 24 Hours: Intake & Output 01/11/19 01/12/19 01/12/19 22:59 06:59 14:59 Intake Total 1045 500 Output Total 350 600 Balance 695 -100 Lab Results Last 24 Hours: Laboratory Results - last 24 hr 01/12/19 01/12/19 Range/Units 06:15 06:15 WBC 7.0 (4.5-12.0) X10-3/uL RBC 3.70 (3.23-5.20) x10(6)uL Hgb 11.0 L D (11.5-15.5) g/dL Hct 32.8 (30.0-51.3) % MCV 88.5 (80-96) fL MCH 29.8 (27.7-33.6) pg MCHC 33.6 (32.2-35.4) g/dL RDW 12.7 (11.5-15.5) % Plt Count 149 (125-369) X10(3)uL MPV 7.8 (7.4-10.4) fL Neut % (Auto) 76.5 (46-82) % Lymph % (Auto) 12.4 L (13-37) % Branch % (Auto) 9.2 (4-12) % Eos % (Auto) 2 (1.0-5.0) % Baso % (Auto) 0 (0-2) % Neut # (Auto) 5.4 (1.6-8.3) # Lymph # (Auto) 0.9 (0.6-5.0) # Branch # (Auto) 0.6 (0.0-1.3) # Eos # (Auto) 0.1 (0.0-0.8) # Baso # (Auto) 0.0 (0.0-0.2) # Sodium 142 (135-145) mmol/L Potassium 3.5 (3.5-5.3) mmol/L Chloride 106 (100-110) mmol/L Carbon Dioxide 35 H (21-32) mmol/L BUN 8 (7-18) mg/dL Creatinine 0.6 (0.55-1.02) mg/dL Est Cr Clr Drug Dosing 68.04 mL/min Estimated GFR (MDRD) > 60 (>60) BUN/Creatinine Ratio 13.3 (9-20) Glucose 107 (80-116) mg/dL Calcium 8.1 L (8.6-10.2) mg/dL Total Bilirubin 0.6 (0.1-1.3) mg/dL AST 22 D (5-25) IU/L ALT 24 D (12-36) U/L Alkaline Phosphatase 52 L (56-112) IU/L Total Protein 5.4 L (6.0-8.0) g/dL Albumin 2.6 L (3.2-4.6) g/dL Globulin 2.8 g/dL Albumin/Globulin Ratio 0.9 Med Orders - Current: Current Medications Acetaminophen (Tylenol Arthritis Pain) 650 mg PO QID [facility] Last Admin: 01/12/19 08:05 Dose: 650 mg Albuterol (Proventil Neb Soln) 2.5 mg NEB Q6H [facility] Aspirin (Ecotrin) 325 mg PO DAILY [facility] Last Admin: 01/12/19 08:05 Dose: 325 mg Bisacodyl (Dulcolax) 10 mg PO DAILY PRN PRN Reason: Constipation Diphenhydramine HCl (Benadryl) 25 mg IVPUSH Q4H PRN PRN Reason: Itching Last Admin: 01/11/19 21:08 Dose: 25 mg Docusate Sodium (Colace) 100 mg PO BID PRN PRN Reason: Constipation Hydromorphone HCl (Dilaudid) 0.5 mg IVPUSH Q2H PRN PRN Reason: Pain (severe 7-10) Last Admin: 01/11/19 13:15 Dose: 0.5 mg Sodium Chloride (Normal Saline) 1,000 mls @ 125 mls/hr IV ASDIRECTED [facility] Last Admin: 01/11/19 09:00 Dose: 125 mls/hr Magnesium Hydroxide (Milk Of Magnesia) 30 ml PO BID PRN PRN Reason: Constipation Morphine Sulfate (Morphine) 2 mg IVPUSH Q2H PRN PRN Reason: Breakthrough Pain Nalbuphine HCl (Nubain) 10 mg IVPUSH Q1H PRN PRN Reason: Pruritus Naloxone HCl (Narcan) 0.1 mg IVPUSH ONETIME PRN PRN Reason: Oversedation Naloxone HCl (Narcan) 0.1 mg IVPUSH ONETIME PRN PRN Reason: Oversedation Ondansetron HCl (Zofran) 4 mg IV Q6H PRN PRN Reason: Nausea/Vomiting Ondansetron HCl (Zofran) 4 mg IVPUSH Q4H PRN PRN Reason: Nausea/Vomiting Oxycodone/Acetaminophen (Percocet 325-5 Mg) 1 tab PO Q4H PRN PRN Reason: Pain (moderate 4-6) Senna (Senna) 8.6 mg PO BID PRN PRN Reason: Constipation Sodium Chloride (Saline Flush) 10 ml FLUSH ASDIRECTED PRN PRN Reason: Keep Vein Open Last Admin: 01/12/19 08:07 Dose: 10 ml Sodium Chloride (Saline Flush) 10 ml FLUSH ASDIRECTED PRN PRN Reason: Keep Vein Open Tramadol HCl (Ultram) 100 mg PO Q6H PRN PRN Reason: Pain (mild 1-3) Discontinued Medications Bupivacaine HCl/Epinephrine Bitart (Marcaine 0.5%/Epinephrine 1:200,000) 10 ml INJECT .STK-MED ONE Stop: 01/11/19 16:01 Last Admin: 01/11/19 16:00 Dose: 10 ml Ropivacaine 49.25 ml/Ketorolac Tromethamine 30 mg/Epinephrine HCl 0.5 mg/ Clonidine HCl 80 mcg/ Sodium Chloride 48.45 ml 0 ml INJECT ASDIRECTED [facility] Stop: 01/11/19 14:15 Last Admin: 01/11/19 15:56 Dose: 100 syringe Tranexamic Acid 3,000 mg/ (Sodium Chloride 100 ml) 0 mg IRR ONETIME ONE Stop: 01/11/19 14:16 Last Admin: 01/11/19 15:55 Dose: 100 syringe Diphtheria/Tetanus/Acell Pertussis (Adacel) 0.5 ml IM .ONCE ONE Stop: 01/10/19 17:42 Last Admin: 01/10/19 18:45 Dose: 0.5 ml Hydromorphone HCl (Dilaudid) 1 mg IVPUSH ONETIME ONE Stop: 01/10/19 18:34 Last Admin: 01/10/19 18:40 Dose: 1 mg Sodium Chloride (Normal Saline) 1,000 mls @ 200 mls/hr IV ASDIRECTED [facility] Last Infusion: 01/10/19 20:28 Dose: 125 mls/hr Cefazolin Sodium/Dextrose 2 gm (/ Premix) 50 mls @ 100 mls/hr IV Q8H [facility] Stop: 01/12/19 05:29 Last Admin: 01/12/19 06:00 Dose: 100 mls/hr Ketorolac Tromethamine (Toradol) 30 mg IVPUSH Q8H [facility] Stop: 01/11/19 08:01 Ketorolac Tromethamine (Toradol) 30 mg IVPUSH Q8H [facility] Stop: 01/12/19 08:01 Last Admin: 01/12/19 08:04 Dose: 30 mg Morphine Sulfate (Morphine) 4 mg IVPUSH ONETIME ONE Stop: 01/10/19 17:42 Last Admin: 01/10/19 17:53 Dose: 4 mg Ondansetron HCl (Zofran) 4 mg IVPUSH ONETIME ONE Stop: 01/10/19 17:42 Last Admin: 01/10/19 17:50 Dose: 4 mg - Exam Quality Assessment: Supplemental Oxygen General: Alert, Oriented HEENT: Pupils Equal Neck: Supple, Thyromegaly Lungs: Crackles Cardiovascular: Regular Rate - Problem List & Annotations (1) Fall from standing SNOMED Code(s): 0266474 Code(s): W19.XXXA - UNSPECIFIED FALL, INITIAL ENCOUNTER Status: Acute Current Visit: Yes Qualifiers: Encounter type: initial encounter Qualified Code(s): W19.XXXA - Unspecified fall, initial encounter (2) HTN (hypertension) SNOMED Code(s): 80702650 Code(s): I10 - ESSENTIAL (PRIMARY) HYPERTENSION Status: Acute Current Visit: Yes Qualifiers: Hypertension type: essential hypertension Qualified Code(s): I10 - Essential (primary) hypertension (3) Fracture of fifth metatarsal bone of left foot SNOMED Code(s): 498567022 Code(s): S92.352A - DISP FX OF FIFTH METATARSAL BONE, LEFT FOOT, INIT Status: Acute Current Visit: Yes Qualifiers: Encounter type: initial encounter Fracture type: closed Fracture alignment: displaced Qualified Code(s): S92.352A - Displaced fracture of fifth metatarsal bone, left foot, initial encounter for closed fracture (4) Subcapital fracture of right hip SNOMED Code(s): 450005221 Code(s): S72.011A - UNSP INTRACAPSULAR FRACTURE OF RIGHT FEMUR, INIT FOR CLOS FX Status: Acute Current Visit: Yes Qualifiers: Encounter type: initial encounter Fracture type: closed Qualified Code(s) : S72.011A - Unspecified intracapsular fracture of right femur, initial encounter for closed fracture (5) Hypoxia SNOMED Code(s): 658586892 Code(s): R09.02 - HYPOXEMIA Status: Acute Current Visit: Yes - Problem List Review Problem List Initiated/Reviewed/Updated: Yes - My Orders Last 24 Hours: My Active Orders 01/12/19 08:32 Cardiac Monitoring Discontinue [RC] Click to Edit RT Aerosol Therapy [RC] ASDIRECTED 01/12/19 08:45 Albuterol [Proventil Neb Soln] 2.5 mg NEB Q6H - Plan Plan:: Hypoxia cause is uncertain. Will try albuterol. Wean off O2. DC Tele. Dr Amni to decide on disposition
[2019-01-12] MEDS: Albuterol 0.083% 2.5 MG/3 ML Neb Soln NEB SCH ×3 (08:49→21:38)
--- NOTE | 2019-01-12 09:08 | PCM.PN ---
- General Info Date of Service: 01/12/19 Functional Status: Reports: Pain Controlled, Tolerating Diet - Review of Systems General: Reports: No Symptoms HEENT: Reports: No Symptoms Pulmonary: Reports: No Symptoms Cardiovascular: Reports: No Symptoms Gastrointestinal: Reports: No Symptoms Genitourinary: Reports: No Symptoms Musculoskeletal: Reports: Leg Pain, Joint Pain, Joint Swelling Skin: Reports: No Symptoms Neurological: Reports: No Symptoms Psychiatric: Reports: No Symptoms - Patient Data Vitals - Most Recent: Last Vital Signs Temp 98.5 F 01/12/19 03:56 Pulse 71 01/12/19 03:56 Resp 18 01/12/19 03:56 BP 100/62 01/12/19 03:56 Pulse Ox 93 L 01/12/19 03:56 Weight - Most Recent: 166 lb 8 oz I&O - Last 24 Hours: Intake & Output 01/11/19 01/12/19 01/12/19 22:59 06:59 14:59 Intake Total 1045 500 Output Total 350 600 Balance 695 -100 Lab Results Last 24 Hours: Laboratory Results - last 24 hr 01/12/19 01/12/19 Range/Units 06:15 06:15 WBC 7.0 (4.5-12.0) X10-3/uL RBC 3.70 (3.23-5.20) x10(6)uL Hgb 11.0 L D (11.5-15.5) g/dL Hct 32.8 (30.0-51.3) % MCV 88.5 (80-96) fL MCH 29.8 (27.7-33.6) pg MCHC 33.6 (32.2-35.4) g/dL RDW 12.7 (11.5-15.5) % Plt Count 149 (125-369) X10(3)uL MPV 7.8 (7.4-10.4) fL Neut % (Auto) 76.5 (46-82) % Lymph % (Auto) 12.4 L (13-37) % Luce % (Auto) 9.2 (4-12) % Eos % (Auto) 2 (1.0-5.0) % Baso % (Auto) 0 (0-2) % Neut # (Auto) 5.4 (1.6-8.3) # Lymph # (Auto) 0.9 (0.6-5.0) # Luce # (Auto) 0.6 (0.0-1.3) # Eos # (Auto) 0.1 (0.0-0.8) # Baso # (Auto) 0.0 (0.0-0.2) # Sodium 142 (135-145) mmol/L Potassium 3.5 (3.5-5.3) mmol/L Chloride 106 (100-110) mmol/L Carbon Dioxide 35 H (21-32) mmol/L BUN 8 (7-18) mg/dL Creatinine 0.6 (0.55-1.02) mg/dL Est Cr Clr Drug Dosing 68.04 mL/min Estimated GFR (MDRD) > 60 (>60) BUN/Creatinine Ratio 13.3 (9-20) Glucose 107 (80-116) mg/dL Calcium 8.1 L (8.6-10.2) mg/dL Total Bilirubin 0.6 (0.1-1.3) mg/dL AST 22 D (5-25) IU/L ALT 24 D (12-36) U/L Alkaline Phosphatase 52 L (56-112) IU/L Total Protein 5.4 L (6.0-8.0) g/dL Albumin 2.6 L (3.2-4.6) g/dL Globulin 2.8 g/dL Albumin/Globulin Ratio 0.9 Med Orders - Current: Current Medications Acetaminophen (Tylenol Arthritis Pain) 650 mg PO QID [facility] Last Admin: 01/12/19 08:05 Dose: 650 mg Albuterol (Proventil Neb Soln) 2.5 mg NEB Q6H [facility] Last Admin: 01/12/19 08:49 Dose: 2.5 mg Aspirin (Ecotrin) 325 mg PO DAILY [facility] Last Admin: 01/12/19 08:05 Dose: 325 mg Bisacodyl (Dulcolax) 10 mg PO DAILY PRN PRN Reason: Constipation Diphenhydramine HCl (Benadryl) 25 mg IVPUSH Q4H PRN PRN Reason: Itching Last Admin: 01/11/19 21:08 Dose: 25 mg Docusate Sodium (Colace) 100 mg PO BID PRN PRN Reason: Constipation Hydromorphone HCl (Dilaudid) 0.5 mg IVPUSH Q2H PRN PRN Reason: Pain (severe 7-10) Last Admin: 01/11/19 13:15 Dose: 0.5 mg Sodium Chloride (Normal Saline) 1,000 mls @ 125 mls/hr IV ASDIRECTED [facility] Last Admin: 01/11/19 09:00 Dose: 125 mls/hr Magnesium Hydroxide (Milk Of Magnesia) 30 ml PO BID PRN PRN Reason: Constipation Morphine Sulfate (Morphine) 2 mg IVPUSH Q2H PRN PRN Reason: Breakthrough Pain Nalbuphine HCl (Nubain) 10 mg IVPUSH Q1H PRN PRN Reason: Pruritus Naloxone HCl (Narcan) 0.1 mg IVPUSH ONETIME PRN PRN Reason: Oversedation Naloxone HCl (Narcan) 0.1 mg IVPUSH ONETIME PRN PRN Reason: Oversedation Ondansetron HCl (Zofran) 4 mg IV Q6H PRN PRN Reason: Nausea/Vomiting Ondansetron HCl (Zofran) 4 mg IVPUSH Q4H PRN PRN Reason: Nausea/Vomiting Oxycodone/Acetaminophen (Percocet 325-5 Mg) 1 tab PO Q4H PRN PRN Reason: Pain (moderate 4-6) Senna (Senna) 8.6 mg PO BID PRN PRN Reason: Constipation Sodium Chloride (Saline Flush) 10 ml FLUSH ASDIRECTED PRN PRN Reason: Keep Vein Open Last Admin: 01/12/19 08:07 Dose: 10 ml Sodium Chloride (Saline Flush) 10 ml FLUSH ASDIRECTED PRN PRN Reason: Keep Vein Open Tramadol HCl (Ultram) 100 mg PO Q6H PRN PRN Reason: Pain (mild 1-3) Discontinued Medications Bupivacaine HCl/Epinephrine Bitart (Marcaine 0.5%/Epinephrine 1:200,000) 10 ml INJECT .STK-MED ONE Stop: 01/11/19 16:01 Last Admin: 01/11/19 16:00 Dose: 10 ml Ropivacaine 49.25 ml/Ketorolac Tromethamine 30 mg/Epinephrine HCl 0.5 mg/ Clonidine HCl 80 mcg/ Sodium Chloride 48.45 ml 0 ml INJECT ASDIRECTED [facility] Stop: 01/11/19 14:15 Last Admin: 01/11/19 15:56 Dose: 100 syringe Tranexamic Acid 3,000 mg/ (Sodium Chloride 100 ml) 0 mg IRR ONETIME ONE Stop: 01/11/19 14:16 Last Admin: 01/11/19 15:55 Dose: 100 syringe Diphtheria/Tetanus/Acell Pertussis (Adacel) 0.5 ml IM .ONCE ONE Stop: 01/10/19 17:42 Last Admin: 01/10/19 18:45 Dose: 0.5 ml Hydromorphone HCl (Dilaudid) 1 mg IVPUSH ONETIME ONE Stop: 01/10/19 18:34 Last Admin: 01/10/19 18:40 Dose: 1 mg Sodium Chloride (Normal Saline) 1,000 mls @ 200 mls/hr IV ASDIRECTED [facility] Last Infusion: 01/10/19 20:28 Dose: 125 mls/hr Cefazolin Sodium/Dextrose 2 gm (/ Premix) 50 mls @ 100 mls/hr IV Q8H [facility] Stop: 01/12/19 05:29 Last Admin: 01/12/19 06:00 Dose: 100 mls/hr Ketorolac Tromethamine (Toradol) 30 mg IVPUSH Q8H [facility] Stop: 01/11/19 08:01 Ketorolac Tromethamine (Toradol) 30 mg IVPUSH Q8H [facility] Stop: 01/12/19 08:01 Last Admin: 01/12/19 08:04 Dose: 30 mg Morphine Sulfate (Morphine) 4 mg IVPUSH ONETIME ONE Stop: 01/10/19 17:42 Last Admin: 01/10/19 17:53 Dose: 4 mg Ondansetron HCl (Zofran) 4 mg IVPUSH ONETIME ONE Stop: 01/10/19 17:42 Last Admin: 01/10/19 17:50 Dose: 4 mg - Exam Quality Assessment: Supplemental Oxygen General: Alert, Oriented, Cooperative, Mild Distress HEENT: Pupils Equal, Pupils Reactive, EOMI, Mucous Membr. Moist/[place] Neck: Supple, Trachea Midline Lungs: Normal Respiratory Effort GI/Abdominal Exam: No Distention Extremities: Leg Pain, Limited Range of Motion Peripheral Pulses: 2+: Dorsalis Pedis (L), Dorsalis Pedis (R) Skin: Warm, Dry, Intact Wound/Incisions: Healing Well, Dressing Dry and Intact Neurological: No New Focal Deficit Psy/Mental Status: Alert, Normal Affect, Normal Mood - Problem List & Annotations (1) Fracture of fifth metatarsal bone of left foot SNOMED Code(s): 650337630 Code(s): S92.352A - DISP FX OF FIFTH METATARSAL BONE, LEFT FOOT, INIT Status: Acute Current Visit: Yes Qualifiers: Encounter type: initial encounter Fracture type: closed Fracture alignment: displaced Qualified Code(s): S92.352A - Displaced fracture of fifth metatarsal bone, left foot, initial encounter for closed fracture (2) Subcapital fracture of right hip SNOMED Code(s): 355886577 Code(s): S72.011A - UNSP INTRACAPSULAR FRACTURE OF RIGHT FEMUR, INIT FOR CLOS FX Status: Acute Current Visit: Yes Qualifiers: Encounter type: initial encounter Fracture type: closed Qualified Code(s) : S72.011A - Unspecified intracapsular fracture of right femur, initial encounter for closed fracture - Problem List Review Problem List Initiated/Reviewed/Updated: Yes - My Orders Last 24 Hours: My Active Orders 01/11/19 13:43 Ambulate [RC] ASDIRECTED Antiembolic Devices [RC] .Routine Head of Bed Elevation [RC] CONTINUOUS May Shower [RC] ASDIRECTED Neurovascular Check [RC] Q4HR Pneumonia Education [RC] UPON RT Incentive Spirometry [RC] Q1HWA Turn, Cough, Deep Breathe [RC] Q1HWA Up to Chair [RC] TIDMEALS VTE/DVT Education [RC] Click to Edit Wound Care [RC] 08,20 Respiratory Care Assess and Treatment [CONS] Routine Hip Min 1V Rt [CR] Routine Acetaminophen/oxyCODONE [Percocet 325-5 MG] 1 tab PO Q4H PRN Bisacodyl [Dulcolax] 10 mg PO DAILY PRN Docusate Sodium [Colace] 100 mg PO BID PRN Magnesium Hydroxide [Milk of Magnesia] 30 ml PO BID PRN Morphine 2 mg IVPUSH Q2H PRN Naloxone [Narcan] 0.1 mg IVPUSH ONETIME PRN Ondansetron [Zofran] 4 mg IVPUSH Q4H PRN Sennosides [Senna] 8.6 mg PO BID PRN Sodium Chloride 0.9% [Saline Flush] 10 ml FLUSH ASDIRECTED PRN diphenhydrAMINE [Benadryl] 25 mg IVPUSH Q4H PRN traMADol [Ultram] 100 mg PO Q6H PRN DVT/VTE Prophylaxis Reflex [OM.PC] Routine Sequential Compression Device [OM.PC] Per Unit Routine Weight bearing status [OM.PC] Routine 01/11/19 13:45 Convert IV to Saline Lock [OM.PC] PER UNIT ROUTINE Ice Therapy [OM.PC] PER UNIT ROUTINE Oral Care [OM.PC] BID 01/11/19 15:00 OT Evaluation and Treatment [CONS] Routine PT Evaluation and Treatment [CONS] Routine 01/11/19 17:00 Acetaminophen [Tylenol Arthritis Pain] 650 mg PO QID 01/11/19 17:01 Fluoro Up To 1Hr [CR] Routine 01/11/19 Dinner Clear Liquid Diet [DIET] 01/12/19 09:00 Aspirin [Ecotrin] 325 mg PO DAILY 01/12/19 13:00 Urinary Catheter Removal [RC] Per Unit Routine 01/12/19 13:45 Oral Care [OM.PC] BID 01/13/19 05:15 CBC WITH AUTO DIFF [HEME] DAILY COMPREHENSIVE METABOLIC PN,CMP [CHEM] DAILY 01/13/19 13:45 Oral Care [OM.PC] BID 01/14/19 05:15 CBC WITH AUTO DIFF [HEME] DAILY COMPREHENSIVE METABOLIC PN,CMP [CHEM] DAILY 01/14/19 13:45 Oral Care [OM.PC] BID 01/15/19 05:15 CBC WITH AUTO DIFF [HEME] DAILY COMPREHENSIVE METABOLIC PN,CMP [CHEM] DAILY 01/15/19 13:45 Oral Care [OM.PC] BID 01/16/19 05:15 CBC WITH AUTO DIFF [HEME] DAILY 01/16/19 13:45 Oral Care [OM.PC] BID 01/17/19 13:45 Oral Care [OM.PC] BID 01/18/19 13:45 Oral Care [OM.PC] BID 01/19/19 13:45 Oral Care [OM.PC] BID 01/20/19 13:45 Oral Care [OM.PC] BID - Plan Plan:: Plan: PT/OT/pain control/ DVT prophylaxis continue ASA 325 daily for three weeks f/u February 02 [facility] OK to shower replace hip dressing eod keep lateral foot incision covered and clean WBAT b/l lower extremities Left foot must be in boot for weight bearing
[2019-01-12] MEDS: Acetaminophen/oxyCODONE 325-5 MG Tab PO PRN ×2 (14:47→19:43)
[2019-01-13] MEDS: Albuterol 0.083% 2.5 MG/3 ML Neb Soln NEB SCH ×4 (03:37→20:09)
[2019-01-13] MEDS: Acetaminophen/oxyCODONE 325-5 MG Tab PO PRN ×2 (03:42→07:54)
--- NOTE | 2019-01-13 08:02 | CR ---
DATE OF EXAM: 01/11/2019 INDICATION: Pinning proximal metaphysis 5th metatarsal fracture. ORDERING PROVIDER: Wesley Amin, C-ARM FLUOROSCOPY IN OR, UP TO ONE HOUR: 0.4 minutes C-arm fluoroscopy time were utilized in OR during pinning of the 5th metatarsal fracture site. Three images were obtained and showed a single pin in place across the fracture line with adequate position and alignment at the left 5th metatarsal proximal metaphysis. Findings were compared with 01-10-19. No complicating process was suggested. ELVISD
--- NOTE | 2019-01-13 08:05 | CR ---
INDICATION: Post-op arthroplasty. RIGHT HIP: A single frontal view of the pelvis was obtained 01/11/19 and compared with 01/10/19 revealing a femoral prosthesis now in place in good position and alignment, without evidence of a complicating process at the proximal right femur. TIESHA
--- NOTE | 2019-01-13 09:07 | PCM.PN ---
- General Info Date of Service: 01/13/19 Subjective Update: Doing well.Pain tolerable.Off o2. Functional Status: Reports: Pain Controlled - Review of Systems General: Reports: No Symptoms HEENT: Reports: No Symptoms Pulmonary: Reports: No Symptoms Cardiovascular: Reports: No Symptoms Gastrointestinal: Reports: No Symptoms Genitourinary: Reports: No Symptoms - Patient Data Vitals - Most Recent: Last Vital Signs Temp 98.5 F 01/13/19 04:00 Pulse 78 01/13/19 04:00 Resp 18 01/13/19 04:00 BP 126/64 01/13/19 04:00 Pulse Ox 96 01/13/19 04:00 Weight - Most Recent: 74.752 kg I&O - Last 24 Hours: Intake & Output 01/12/19 01/13/19 01/13/19 22:59 06:59 14:59 Output Total 200 500 Balance -200 -500 Lab Results Last 24 Hours: Laboratory Results - last 24 hr 01/13/19 01/13/19 Range/Units 06:04 06:04 WBC 8.3 (4.5-12.0) X10-3/uL RBC 3.73 (3.23-5.20) x10(6)uL Hgb 11.2 L (11.5-15.5) g/dL Hct 32.5 (30.0-51.3) % MCV 87.1 (80-96) fL MCH 30.0 (27.7-33.6) pg MCHC 34.5 (32.2-35.4) g/dL RDW 12.7 (11.5-15.5) % Plt Count 149 (125-369) X10(3)uL MPV 8.1 (7.4-10.4) fL Neut % (Auto) 78.8 (46-82) % Lymph % (Auto) 10.5 L (13-37) % Bertie % (Auto) 9.1 (4-12) % Eos % (Auto) 1 (1.0-5.0) % Baso % (Auto) 0 (0-2) % Neut # (Auto) 6.5 (1.6-8.3) # Lymph # (Auto) 0.9 (0.6-5.0) # Bertie # (Auto) 0.8 (0.0-1.3) # Eos # (Auto) 0.1 (0.0-0.8) # Baso # (Auto) 0.0 (0.0-0.2) # Sodium 142 (135-145) mmol/L Potassium 3.2 L (3.5-5.3) mmol/L Chloride 104 (100-110) mmol/L Carbon Dioxide 34 H (21-32) mmol/L BUN 9 (7-18) mg/dL Creatinine 0.6 (0.55-1.02) mg/dL Est Cr Clr Drug Dosing 68.04 mL/min Estimated GFR (MDRD) > 60 (>60) BUN/Creatinine Ratio 15.0 (9-20) Glucose 104 (80-116) mg/dL Calcium 8.4 L (8.6-10.2) mg/dL Total Bilirubin 0.7 (0.1-1.3) mg/dL AST 26 H D (5-25) IU/L ALT 25 (12-36) U/L Alkaline Phosphatase 60 (56-112) IU/L Total Protein 5.8 L (6.0-8.0) g/dL Albumin 2.6 L (3.2-4.6) g/dL Globulin 3.2 g/dL Albumin/Globulin Ratio 0.8 Med Orders - Current: Current Medications Acetaminophen (Tylenol Arthritis Pain) 650 mg PO QID [facility] Last Admin: 01/12/19 21:38 Dose: 650 mg Albuterol (Proventil Neb Soln) 2.5 mg NEB Q6H [facility] Last Admin: 01/13/19 07:56 Dose: 2.5 mg Aspirin (Ecotrin) 325 mg PO DAILY [facility] Last Admin: 01/12/19 08:05 Dose: 325 mg Bisacodyl (Dulcolax) 10 mg PO DAILY PRN PRN Reason: Constipation Diphenhydramine HCl (Benadryl) 25 mg IVPUSH Q4H PRN PRN Reason: Itching Last Admin: 01/11/19 21:08 Dose: 25 mg Docusate Sodium (Colace) 100 mg PO BID PRN PRN Reason: Constipation Hydromorphone HCl (Dilaudid) 0.5 mg IVPUSH Q2H PRN PRN Reason: Pain (severe 7-10) Last Admin: 01/11/19 13:15 Dose: 0.5 mg Sodium Chloride (Normal Saline) 1,000 mls @ 125 mls/hr IV ASDIRECTED [facility] Last Admin: 01/11/19 09:00 Dose: 125 mls/hr Magnesium Hydroxide (Milk Of Magnesia) 30 ml PO BID PRN PRN Reason: Constipation Morphine Sulfate (Morphine) 2 mg IVPUSH Q2H PRN PRN Reason: Breakthrough Pain Nalbuphine HCl (Nubain) 10 mg IVPUSH Q1H PRN PRN Reason: Pruritus Naloxone HCl (Narcan) 0.1 mg IVPUSH ONETIME PRN PRN Reason: Oversedation Naloxone HCl (Narcan) 0.1 mg IVPUSH ONETIME PRN PRN Reason: Oversedation Ondansetron HCl (Zofran) 4 mg IV Q6H PRN PRN Reason: Nausea/Vomiting Ondansetron HCl (Zofran) 4 mg IVPUSH Q4H PRN PRN Reason: Nausea/Vomiting Oxycodone/Acetaminophen (Percocet 325-5 Mg) 1 tab PO Q4H PRN PRN Reason: Pain (moderate 4-6) Last Admin: 01/13/19 07:54 Dose: 1 tab Senna (Senna) 8.6 mg PO BID PRN PRN Reason: Constipation Sodium Chloride (Saline Flush) 10 ml FLUSH ASDIRECTED PRN PRN Reason: Keep Vein Open Last Admin: 01/12/19 08:07 Dose: 10 ml Sodium Chloride (Saline Flush) 10 ml FLUSH ASDIRECTED PRN PRN Reason: Keep Vein Open Tramadol HCl (Ultram) 100 mg PO Q6H PRN PRN Reason: Pain (mild 1-3) Discontinued Medications Bupivacaine HCl/Epinephrine Bitart (Marcaine 0.5%/Epinephrine 1:200,000) 10 ml INJECT .STK-MED ONE Stop: 01/11/19 16:01 Last Admin: 01/11/19 16:00 Dose: 10 ml Ropivacaine 49.25 ml/Ketorolac Tromethamine 30 mg/Epinephrine HCl 0.5 mg/ Clonidine HCl 80 mcg/ Sodium Chloride 48.45 ml 0 ml INJECT ASDIRECTED [facility] Stop: 01/11/19 14:15 Last Admin: 01/11/19 15:56 Dose: 100 syringe Tranexamic Acid 3,000 mg/ (Sodium Chloride 100 ml) 0 mg IRR ONETIME ONE Stop: 01/11/19 14:16 Last Admin: 01/11/19 15:55 Dose: 100 syringe Diphtheria/Tetanus/Acell Pertussis (Adacel) 0.5 ml IM .ONCE ONE Stop: 01/10/19 17:42 Last Admin: 01/10/19 18:45 Dose: 0.5 ml Hydromorphone HCl (Dilaudid) 1 mg IVPUSH ONETIME ONE Stop: 01/10/19 18:34 Last Admin: 01/10/19 18:40 Dose: 1 mg Sodium Chloride (Normal Saline) 1,000 mls @ 200 mls/hr IV ASDIRECTED [facility] Last Infusion: 01/10/19 20:28 Dose: 125 mls/hr Cefazolin Sodium/Dextrose 2 gm (/ Premix) 50 mls @ 100 mls/hr IV Q8H [facility] Stop: 01/12/19 05:29 Last Admin: 01/12/19 06:00 Dose: 100 mls/hr Ketorolac Tromethamine (Toradol) 30 mg IVPUSH Q8H [facility] Stop: 01/11/19 08:01 Ketorolac Tromethamine (Toradol) 30 mg IVPUSH Q8H [facility] Stop: 01/12/19 08:01 Last Admin: 01/12/19 08:04 Dose: 30 mg Morphine Sulfate (Morphine) 4 mg IVPUSH ONETIME ONE Stop: 01/10/19 17:42 Last Admin: 01/10/19 17:53 Dose: 4 mg Ondansetron HCl (Zofran) 4 mg IVPUSH ONETIME ONE Stop: 01/10/19 17:42 Last Admin: 01/10/19 17:50 Dose: 4 mg - Exam General: Alert, Oriented HEENT: Pupils Equal Psy/Mental Status: Alert, Normal Affect - Problem List & Annotations (1) Fall from standing SNOMED Code(s): 8805858 Code(s): W19.XXXA - UNSPECIFIED FALL, INITIAL ENCOUNTER Status: Acute Current Visit: Yes Qualifiers: Encounter type: initial encounter Qualified Code(s): W19.XXXA - Unspecified fall, initial encounter (2) HTN (hypertension) SNOMED Code(s): 57231564 Code(s): I10 - ESSENTIAL (PRIMARY) HYPERTENSION Status: Acute Current Visit: Yes Qualifiers: Hypertension type: essential hypertension Qualified Code(s): I10 - Essential (primary) hypertension (3) Fracture of fifth metatarsal bone of left foot SNOMED Code(s): 512831920 Code(s): S92.352A - DISP FX OF FIFTH METATARSAL BONE, LEFT FOOT, INIT Status: Acute Current Visit: Yes Qualifiers: Encounter type: initial encounter Fracture type: closed Fracture alignment: displaced Qualified Code(s): S92.352A - Displaced fracture of fifth metatarsal bone, left foot, initial encounter for closed fracture (4) Subcapital fracture of right hip SNOMED Code(s): 808111881 Code(s): S72.011A - UNSP INTRACAPSULAR FRACTURE OF RIGHT FEMUR, INIT FOR CLOS FX Status: Acute Current Visit: Yes Qualifiers: Encounter type: initial encounter Fracture type: closed Qualified Code(s) : S72.011A - Unspecified intracapsular fracture of right femur, initial encounter for closed fracture (5) Hypoxia SNOMED Code(s): 385473053 Code(s): R09.02 - HYPOXEMIA Status: Acute Current Visit: Yes - Problem List Review Problem List Initiated/Reviewed/Updated: Yes - My Orders Last 24 Hours: My Active Orders 01/12/19 08:32 RT Aerosol Therapy [RC] ASDIRECTED 01/12/19 08:45 Albuterol [Proventil Neb Soln] 2.5 mg NEB Q6H - Plan Plan:: Dr Brennan finley take over care.
[2019-01-13] MEDS: Aspirin 325 MG Tab.EC PO SCH (09:52)
[2019-01-13] MEDS: Acetaminophen 650 MG Tab.ER PO SCH ×4 (09:52→20:09)
[2019-01-13] MEDS: traMADol 50 MG Tab PO PRN (19:32)
[2019-01-14] MEDS: Albuterol 0.083% 2.5 MG/3 ML Neb Soln NEB SCH ×4 (02:17→21:00)
[2019-01-14] MEDS: traMADol 50 MG Tab PO PRN ×2 (02:55→23:01)
[2019-01-14] MEDS: Aspirin 325 MG Tab.EC PO SCH (08:26)
[2019-01-14] MEDS: Acetaminophen 650 MG Tab.ER PO SCH ×4 (08:26→21:00)
--- NOTE | 2019-01-14 08:36 | DISCH ---
DISCHARGE DATE: 01/13/2019 REASON FOR ADMISSION: 1. Fall. 2. Anxiety. 3. Hypertension. 4. Tobacco abuse. 5. Fracture, right hip and left metatarsal. CONSULTATIONS: Dr. Amin. SURGERY: She had ORIF of the metatarsal and hemiarthroplasty of the hip. POSTOPERATIVE COURSE: The patient did well. Physical Therapy was consulted. She was able to do 180 steps. The pain was controlled with Percocet. She is deemed ready to go back home today. DISCHARGE MEDICATIONS: 1. Percocet 1 tablet every 4 hours p.r.n., 20 tablets. 2. She will also go home on aspirin 325 mg daily for 35 days. Followup appointment is arranged with Dr. Rosa in a week and Dr. Amin in 3 weeks. I spent more than 35 minutes in the discharge of the patient. /[id number] WILLIAM/OFELIA
[2019-01-14] MEDS: Acetaminophen/oxyCODONE 325-5 MG Tab PO PRN ×2 (08:46→12:54)
--- NOTE | 2019-01-14 09:25 | PCM.PN ---
- General Info Date of Service: 01/14/19 Subjective Update: Discharge cancelled to accomodate PT. pain not well controlled,unable to ambulate well. Functional Status: Reports: Pain Controlled, Tolerating Diet - Review of Systems General: Reports: No Symptoms HEENT: Reports: Sinus Congestion Pulmonary: Reports: Cough Gastrointestinal: Reports: No Symptoms Genitourinary: Reports: No Symptoms - Patient Data Vitals - Most Recent: Last Vital Signs Temp 98.5 F 01/14/19 07:45 Pulse 82 01/14/19 07:45 Resp 18 01/14/19 07:45 BP 138/89 01/14/19 07:45 Pulse Ox 81 L 01/14/19 07:45 Weight - Most Recent: 74.752 kg I&O - Last 24 Hours: Intake & Output 01/13/19 01/14/19 01/14/19 22:59 06:59 14:59 Intake Total 300 300 Balance 300 300 Lab Results Last 24 Hours: Laboratory Results - last 24 hr 01/14/19 01/14/19 01/14/19 Range/Units 06:10 06:10 06:10 WBC 7.5 (4.5-12.0) X10-3/uL RBC 3.57 (3.23-5.20) x10(6)uL Hgb 11.0 L (11.5-15.5) g/dL Hct 31.4 (30.0-51.3) % MCV 87.9 (80-96) fL MCH 30.8 (27.7-33.6) pg MCHC 35.1 (32.2-35.4) g/dL RDW 12.7 (11.5-15.5) % Plt Count 176 (125-369) X10(3)uL MPV 8.3 (7.4-10.4) fL Neut % (Auto) 81.5 (46-82) % Lymph % (Auto) 10.0 L (13-37) % [place] % (Auto) 6.8 (4-12) % Eos % (Auto) 1 (1.0-5.0) % Baso % (Auto) 0 (0-2) % Neut # (Auto) 6.2 (1.6-8.3) # Lymph # (Auto) 0.7 (0.6-5.0) # [place] # (Auto) 0.5 (0.0-1.3) # Eos # (Auto) 0.1 (0.0-0.8) # Baso # (Auto) 0.0 (0.0-0.2) # Sodium 143 (135-145) mmol/L Potassium 3.2 L (3.5-5.3) mmol/L Chloride 103 (100-110) mmol/L Carbon Dioxide 34 H (21-32) mmol/L BUN 11 (7-18) mg/dL Creatinine 0.6 (0.55-1.02) mg/dL Est Cr Clr Drug Dosing 68.04 mL/min Estimated GFR (MDRD) > 60 (>60) BUN/Creatinine Ratio 18.3 (9-20) Glucose 118 H (80-116) mg/dL Calcium 8.6 (8.6-10.2) mg/dL Total Bilirubin 0.6 (0.1-1.3) mg/dL AST 22 D (5-25) IU/L ALT 25 (12-36) U/L Alkaline Phosphatase 71 (56-112) IU/L NT-Pro-B Natriuret Pep 354 H (<=125) pg/mL Total Protein 6.0 (6.0-8.0) g/dL Albumin 2.4 L (3.2-4.6) g/dL Globulin 3.6 g/dL Albumin/Globulin Ratio 0.7 Med Orders - Current: Current Medications Acetaminophen (Tylenol Arthritis Pain) 650 mg PO QID [facility] Last Admin: 01/14/19 08:26 Dose: 650 mg Albuterol (Proventil Neb Soln) 2.5 mg NEB Q6H [facility] Last Admin: 01/14/19 08:26 Dose: 2.5 mg Aspirin (Ecotrin) 325 mg PO DAILY [facility] Last Admin: 01/14/19 08:26 Dose: 325 mg Bisacodyl (Dulcolax) 10 mg PO DAILY PRN PRN Reason: Constipation Diphenhydramine HCl (Benadryl) 25 mg IVPUSH Q4H PRN PRN Reason: Itching Last Admin: 01/11/19 21:08 Dose: 25 mg Docusate Sodium (Colace) 100 mg PO BID PRN PRN Reason: Constipation Hydromorphone HCl (Dilaudid) 0.5 mg IVPUSH Q2H PRN PRN Reason: Pain (severe 7-10) Last Admin: 01/11/19 13:15 Dose: 0.5 mg Sodium Chloride (Normal Saline) 1,000 mls @ 125 mls/hr IV ASDIRECTED [facility]IVE Last Admin: 01/11/19 09:00 Dose: 125 mls/hr Magnesium Hydroxide (Milk Of Magnesia) 30 ml PO BID PRN PRN Reason: Constipation Morphine Sulfate (Morphine) 2 mg IVPUSH Q2H PRN PRN Reason: Breakthrough Pain Nalbuphine HCl (Nubain) 10 mg IVPUSH Q1H PRN PRN Reason: Pruritus Naloxone HCl (Narcan) 0.1 mg IVPUSH ONETIME PRN PRN Reason: Oversedation Naloxone HCl (Narcan) 0.1 mg IVPUSH ONETIME PRN PRN Reason: Oversedation Ondansetron HCl (Zofran) 4 mg IV Q6H PRN PRN Reason: Nausea/Vomiting Ondansetron HCl (Zofran) 4 mg IVPUSH Q4H PRN PRN Reason: Nausea/Vomiting Oxycodone/Acetaminophen (Percocet 325-5 Mg) 1 tab PO Q4H PRN PRN Reason: Pain (moderate 4-6) Last Admin: 01/14/19 08:46 Dose: 1 tab Senna (Senna) 8.6 mg PO BID PRN PRN Reason: Constipation Sodium Chloride (Saline Flush) 10 ml FLUSH ASDIRECTED PRN PRN Reason: Keep Vein Open Last Admin: 01/12/19 08:07 Dose: 10 ml Sodium Chloride (Saline Flush) 10 ml FLUSH ASDIRECTED PRN PRN Reason: Keep Vein Open Tramadol HCl (Ultram) 100 mg PO Q6H PRN PRN Reason: Pain (mild 1-3) Last Admin: 01/14/19 02:55 Dose: 100 mg Discontinued Medications Bupivacaine HCl/Epinephrine Bitart (Marcaine 0.5%/Epinephrine 1:200,000) 10 ml INJECT .STK-MED ONE Stop: 01/11/19 16:01 Last Admin: 01/11/19 16:00 Dose: 10 ml Ropivacaine 49.25 ml/Ketorolac Tromethamine 30 mg/Epinephrine HCl 0.5 mg/ Clonidine HCl 80 mcg/ Sodium Chloride 48.45 ml 0 ml INJECT ASDIRECTED [facility] Stop: 01/11/19 14:15 Last Admin: 01/11/19 15:56 Dose: 100 syringe Tranexamic Acid 3,000 mg/ (Sodium Chloride 100 ml) 0 mg IRR ONETIME ONE Stop: 01/11/19 14:16 Last Admin: 01/11/19 15:55 Dose: 100 syringe Diphtheria/Tetanus/Acell Pertussis (Adacel) 0.5 ml IM .ONCE ONE Stop: 01/10/19 17:42 Last Admin: 01/10/19 18:45 Dose: 0.5 ml Hydromorphone HCl (Dilaudid) 1 mg IVPUSH ONETIME ONE Stop: 01/10/19 18:34 Last Admin: 01/10/19 18:40 Dose: 1 mg Sodium Chloride (Normal Saline) 1,000 mls @ 200 mls/hr IV ASDIRECTED [facility] Last Infusion: 01/10/19 20:28 Dose: 125 mls/hr Cefazolin Sodium/Dextrose 2 gm (/ Premix) 50 mls @ 100 mls/hr IV Q8H [facility] Stop: 01/12/19 05:29 Last Admin: 01/12/19 06:00 Dose: 100 mls/hr Ketorolac Tromethamine (Toradol) 30 mg IVPUSH Q8H [facility] Stop: 01/11/19 08:01 Ketorolac Tromethamine (Toradol) 30 mg IVPUSH Q8H [facility] Stop: 01/12/19 08:01 Last Admin: 01/12/19 08:04 Dose: 30 mg Morphine Sulfate (Morphine) 4 mg IVPUSH ONETIME ONE Stop: 01/10/19 17:42 Last Admin: 01/10/19 17:53 Dose: 4 mg Ondansetron HCl (Zofran) 4 mg IVPUSH ONETIME ONE Stop: 01/10/19 17:42 Last Admin: 01/10/19 17:50 Dose: 4 mg - Exam Quality Assessment: Supplemental Oxygen General: Alert HEENT: Pupils Equal Lungs: Crackles, Rales Cardiovascular: Regular Rate - Problem List & Annotations (1) Fall from standing SNOMED Code(s): 6058217 Code(s): W19.XXXA - UNSPECIFIED FALL, INITIAL ENCOUNTER Status: Acute Current Visit: Yes Qualifiers: Encounter type: initial encounter Qualified Code(s): W19.XXXA - Unspecified fall, initial encounter (2) HTN (hypertension) SNOMED Code(s): 13926727 Code(s): I10 - ESSENTIAL (PRIMARY) HYPERTENSION Status: Acute Current Visit: Yes Qualifiers: Hypertension type: essential hypertension Qualified Code(s): I10 - Essential (primary) hypertension (3) Fracture of fifth metatarsal bone of left foot SNOMED Code(s): 323293612 Code(s): S92.352A - DISP FX OF FIFTH METATARSAL BONE, LEFT FOOT, INIT Status: Acute Current Visit: Yes Qualifiers: Encounter type: initial encounter Fracture type: closed Fracture alignment: displaced Qualified Code(s): S92.352A - Displaced fracture of fifth metatarsal bone, left foot, initial encounter for closed fracture (4) Subcapital fracture of right hip SNOMED Code(s): 948637977 Code(s): S72.011A - UNSP INTRACAPSULAR FRACTURE OF RIGHT FEMUR, INIT FOR CLOS FX Status: Acute Current Visit: Yes Qualifiers: Encounter type: initial encounter Fracture type: closed Qualified Code(s) : S72.011A - Unspecified intracapsular fracture of right femur, initial encounter for closed fracture (5) Hypoxia SNOMED Code(s): 017636335 Code(s): R09.02 - HYPOXEMIA Status: Acute Current Visit: Yes (6) S/P hip hemiarthroplasty SNOMED Code(s): 469687016, 688238180, 176567303, 862140952 Code(s): Z96.649 - PRESENCE OF UNSPECIFIED ARTIFICIAL HIP JOINT Status: Acute Current Visit: Yes (7) Weakness SNOMED Code(s): 07786502 Code(s): R53.1 - WEAKNESS Status: Acute Current Visit: Yes (8) Ambulatory dysfunction SNOMED Code(s): 447348523 Code(s): R26.2 - DIFFICULTY IN WALKING, NOT ELSEWHERE CLASSIFIED Status: Acute Current Visit: Yes - Problem List Review Problem List Initiated/Reviewed/Updated: Yes - My Orders Last 24 Hours: My Active Orders 01/13/19 09:54 Ready for Discharge [RC] PER UNIT ROUTINE 01/14/19 08:41 D-DIMER QUANTITATIVE [COAG] Routine 01/14/19 08:42 CXR [Chest 2V] [CR] Routine - Plan Plan:: D dimer high,CXR neg to my interpretation.Unable to have CT due to allergy to dye. Start Prednisone for possible COPD exacerbation.Possibly transfer to for rehab tomorrow.
[2019-01-14] MEDS: predniSONE 20 MG Tab PO SCH ×2 (14:21→21:00)
--- NOTE | 2019-01-14 14:39 | CR ---
INDICATION: Short of breath. CHEST PA AND LATERAL: PA and lateral views of the chest 01/14/19 were compared with 04/13/14 and revealed the heart to be enlarged with mild LVE but mostly generalized. The aorta is tortuous. Somewhat diminished bone density may be present raising the question of osteomalacia or osteoporosis and should be correlated clinically. Multiple snaps are noted overlying the upper chest. Blunting of the posterior sulci is noted compatible with bilateral small pleural effusions, which is a new finding compared with the previous study. Some minimally increased density at the left costophrenic angle could represent some minimal infiltrate. Etiology of the effusions is not determined, although a mild or early CHF is difficult to exclude with slightly prominent upper lung pulmonary vascularity noted. No additional consolidating pneumonia was seen. Retrolisthesis is again noted at an upper lumbar level appearing unchanged. Probable degenerative disc disease at that level. Somewhat flattened diaphragm leads prominent AP diameter and hyperaeration all suggest COPD. IMPRESSION: 1. Small bilateral pleural effusions cannot exclude minimal pneumonia and pleuritis on the left, otherwise effusion could be on the basis of mild degree of CHF, which could be present in this patient with cardiomegaly and mild prominence of upper lung field pulmonary vasculature. 2. Probable COPD--correlate clinically. 3. Mild dextroconvex scoliosis thoracolumbar spine. MTDD
[2019-01-15] MEDS: Albuterol 0.083% 2.5 MG/3 ML Neb Soln NEB SCH ×2 (03:05→08:25)
[2019-01-15] MEDS: Acetaminophen/oxyCODONE 325-5 MG Tab PO PRN (03:05)
[2019-01-15] MEDS: Aspirin 325 MG Tab.EC PO SCH (08:25)
[2019-01-15] MEDS: predniSONE 20 MG Tab PO SCH (08:25)
[2019-01-15] MEDS: Acetaminophen 650 MG Tab.ER PO SCH (08:25)
[2019-01-15] MEDS ORDERED: traZODone 100 MG Tab PO PRN (09:29)
[2019-01-15] MEDS ORDERED: Pantoprazole 40 MG Tab.CR PO SCH (10:00)
[2019-01-15] MEDS ORDERED: Losartan 50 MG Tab PO SCH (10:00)
[2019-01-15] MEDS ORDERED: Escitalopram 20 MG Tab PO SCH (10:00)
[2019-01-15] MEDS ORDERED: Loratadine 10 MG Tab PO SCH (10:00)
--- NOTE | 2019-01-15 10:30 | PN ---
DATE SEEN: 01/15/2019 HISTORY: Hetal is a 63-year-old woman with a history of hypertension, GERD, depression, and smoking with mild COPD. She was out walking her dog when she stumbled and fell sustaining a fracture of her right hip and of her left foot. She was taken to [facility] and admitted. She underwent ORIF of the right hip on 01/11/2019 and she was placed in a boot for her metatarsal fracture. She also sustained abrasions to her right elbow. Hetal states that her pain control is mostly adequate, although she could not sleep well last night. She has been on Percocet supplemented by p.r.n. morphine. She has had some difficulty with walking yet, but is up with therapy and a walker. She developed slight desaturation yesterday. A chest x-ray was done, most consistent with atelectasis but also showed some possible cardiomegaly and tiny pleural effusions. She was started on oral prednisone yesterday. She states that her breathing is fine and her oxygen saturations have been this morning 96% on room air. PHYSICAL EXAMINATION: GENERAL: She is alert and comfortable. VITAL SIGNS: Blood pressure 152/96, pulse 80 and regular, respirations normal, temperature 98.4, and weight 168 pounds. SKIN: Anicteric. Warm and dry. There is a healing dry abrasion over the right elbow. There is a dressing over her right hip and boot on the left foot. HEENT: Shows her mouth to be dry. LUNGS: Clear on the left. She has slight rales at the right base. HEART: Regular without murmur or gallop. ABDOMEN: Soft and nontender. EXTREMITIES: Showed no edema of the right lower extremity. Boot is not removed for examination of the left foot. LABORATORY DATA: Hemoglobin 11.1, 86 segs, 10 lymphocytes, 4 monos. Electrolytes normal. Creatinine 0.6. ASSESSMENT: 1. Right hip fracture with open reduction and internal fixation. 2. Left metatarsal fracture. 3. Mild chronic obstructive pulmonary disease with continued smoking. 4. Gastroesophageal reflux disease. 5. Depression. 6. Hypertension. 7. History of chronic allergic rhinitis. PLAN: At this time, we will discontinue her oral steroid. Her pulmonary symptoms seem to be primarily atelectasis. We will have her continue to use incentive spirometry. We will resume her outpatient medications. Continue physical therapy and likely plan swing bed for further recuperation of her fracture. She also will be setup for echocardiogram and bone density study if not already completed. /[id number] GRETTA/OFELIA
--- NOTE | 2019-01-16 04:39 | DISCH ---
DISCHARGE DATE: 01/15/2019 HISTORY: Hetal is a 63-year-old woman, who sustained a right hip fracture when she fell walking her dog. She was taken to surgery and a right hemiarthroplasty was performed by Dr. Amin on 01/10/2019. She has been recuperating with therapy since. She is getting more comfortable, but still has moderate pain with activity and with leg movement. She is taking oxycodone for pain. Other history includes a period of mild hypoxia yesterday. Chest x-ray was done showing tiny basilar pleural effusions, slight cardiomegaly, changes of COPD, and findings consistent with atelectasis. She had not been febrile. She was given oral steroid and states her breathing has been easy and she is maintaining excellent saturations on room air since. She is using an incentive spirometer. The patient is discharged to swing bed for further recuperation. MEDICATIONS ON DISCHARGE: Are as follows: 1. Senokot-S 1 b.i.d. 2. Milk of magnesia 30 mL b.i.d. p.r.n. constipation. 3. Aspirin 325 mg daily. 4. Percocet 5/325 mg 1 tab every 4 hours p.r.n. pain. 5. Tylenol Arthritis 1 tab q.i.d. p.r.n. mild pain. 6. Trazodone 200 mg at bedtime. 7. Protonix 40 mg daily. 8. Losartan 50 mg daily. 9. Loratadine 10 mg daily. 10.Lexapro 20 mg daily. I anticipate a short swing bed stay with good healing and resumption of ambulatory activities. I have discussed with her quitting smoking. I anticipate return to her home following adequate recuperation. /[id number] GRETTA/OFELIA
--- NOTE | 2019-01-29 14:45 | CR ---
INDICATION: Fall with injury to right elbow. RIGHT ELBOW: Three views of the right elbow were obtained 01/10/19 - no comparisons. There are some minimal hypertrophic changes off the ulnar joint surface at the medial elbow joint compartment, compatible with very minimal osteoarthritis. A fracture, dislocation, or other significant bone or joint abnormality was not identified. [facility]
== END 2019-01-15 11:15 | disposition swing bed (61) | DRG 470 ==
LOC: FB.ED 17:21 → FB.MS 20:00
PROVIDERS: ADMIT Emergency Medicine; ATTEND Family Medicine
PROC: 0SRR01A Replacement of Right Hip Joint, Femoral Surface with Metal Synthetic Substitute, Uncemented, Open Approach (ICD-10-PCS; principal; 2019-01-11)
PROC: 0QSP04Z Reposition Left Metatarsal with Internal Fixation Device, Open Approach (ICD-10-PCS; 2019-01-11)
DX: S72.011A Unspecified intracapsular fracture of right femur, initial encounter for closed fracture (principal); S92.352A Displaced fracture of fifth metatarsal bone, left foot, initial encounter for closed fracture; W01.0XXA Fall on same level from slipping, tripping and stumbling without subsequent striking against object, initial encounter; Y93.K1 Activity, walking an animal; S50.311A Abrasion of right elbow, initial encounter; Z72.0 Tobacco use; I10 Essential (primary) hypertension; K21.9 Gastro-esophageal reflux disease without esophagitis; F41.9 Anxiety disorder, unspecified; F32.9 Major depressive disorder, single episode, unspecified; F39 Unspecified mood [affective] disorder; E66.9 Obesity, unspecified; Z68.31 Body mass index [BMI] 31.0-31.9, adult; H54.7 Unspecified visual loss; Z91.041 Radiographic dye allergy status; R09.02 Hypoxemia
CPT/HCPCS: 36415; 51702; 71046; 73080-RT; 73501-RT; 73502-RT; 73630-LT; 76000; 80053; 81001; 83880; 85025; 85379; 85610; 86850; 86900; 86901; 90471; 90715; 93005; 94150; 94640; 96374; 96375; 97110-GP; 97116-GP; 97161-GP; 97165-GO; 97530-GO; 97535-GO; 99284-25; A9270-GY; C1776; J0171; J0690; J0735; J1170; J1200; J1885; J2250; J2270; J2405; J2704; J2795; J3010; J3490; J7030; J7050; J7120

== ENCOUNTER 2019-01-15 11:16 | Inpatient (IN) | payer OTHER ==
[2019-01-15] MEDS ORDERED: Sennosides 8.6 MG Tab PO PRN (13:40)
[2019-01-15] MEDS ORDERED: Magnesium Hydroxide 400 MG/5 ML Susp 30 ML Cup PO PRN (13:40)
[2019-01-15] MEDS ORDERED: traZODone 100 MG Tab PO PRN (13:40)
[2019-01-15] MEDS: Acetaminophen 650 MG Tab.ER PO SCH ×2 (14:26→21:31)
[2019-01-16] MEDS: Pantoprazole 40 MG Tab.CR PO SCH (05:41)
[2019-01-16] MEDS: Losartan 50 MG Tab PO SCH (08:31)
[2019-01-16] MEDS: Loratadine 10 MG Tab PO SCH (08:31)
[2019-01-16] MEDS: Aspirin 325 MG Tab.EC PO SCH (08:31)
[2019-01-16] MEDS: Acetaminophen 650 MG Tab.ER PO SCH ×3 (08:32→20:30)
[2019-01-16] MEDS: Escitalopram 20 MG Tab PO SCH (08:32)
--- NOTE | 2019-01-16 11:00 | HP ---
ADMISSION DATE: 01/15/2019 HISTORY OF PRESENT ILLNESS: Regina is a 63-year-old woman who has been previously healthy, who fell while walking her dog on 01/10/2019. She sustained a right hip fracture and a left metatarsal fracture. She underwent hemiarthroplasty of the right hip on 01/11/[address] Amin. She was placed in a Cam walker for her metatarsal fracture, and has been getting physical therapy and recuperation. Other past history includes history of anxiety and depression, hypertension, GERD, and previous C-sections. Regina has developed an episode of mild O2 desaturation, and a chest x-ray was suspicious for mild cardiomegaly and tiny pleural effusions, clinically appeared to be all consistent with atelectasis postop, however, and it has not recurred with use of her incentive spirometer. MEDICATIONS: 1. Trazodone 200 mg at bedtime. 2. Senna S 1 b.i.d. p.r.n. 3. Protonix 40 mg daily. 4. Milk of magnesia 30 mL p.r.n. 5. Cozaar 50 mg daily. 6. Loratadine 10 mg daily. 7. Lexapro 20 mg daily. 8. Aspirin 325 mg daily. 9. Percocet 1 every 4 hours p.r.n. pain. 10.Tylenol Arthritis p.r.n. ALLERGIES: X-ray contrast. HABITS: She remains a cigarette smoker FAMILY AND SOCIAL HISTORY: The patient is , lives with her in [place]. REVIEW OF SYSTEMS: No seizures, syncope, or recent significant weight change. No rash. No current cough, dyspnea, chest pain, palpitations, abdominal pain, diarrhea, significant swelling or skin rash. As reported, she states the pain is adequately controlled in her hip and her foot injuries. PHYSICAL EXAMINATION: GENERAL: She is alert, comfortable, and a good historian. VITAL SIGNS: Blood pressure 142/88, pulse 72 and regular, respirations normal, O2 saturation 96% on room air, and temperature 98.4. SKIN: Clear without rash. CAM walker is in place over left foot. There is dried healing abrasion of the right elbow and dressing over the right hip. Mouth is dry. LUNGS: Clear with good air movement to both bases. HEART: Regular without murmur or gallop. ABDOMEN: Soft and nontender. EXTREMITIES: Showed no significant edema of her feet with a Cam walker in place on the left. Right hip is comfortable to mild internal and external rotation. LABORATORY DATA: Hemoglobin 11.1. Electrolytes normal, creatinine 0.6. ASSESSMENT: 1. Right hip fracture, post right hemiarthroplasty. 2. Left metatarsal fracture. 3. Hypertension. 4. Anxiety and depression. 5. Gastroesophageal reflux disease. 6. Questionable cardiomegaly. PLAN: We will continue her current therapy and medications. I will set her up for an echocardiogram to assess cardiac function and a DEXA scan because of her hip fracture at her young age. We will continue swing bed cares and anticipate discharge to home once adequate recovery is met. /[id number] GRETTA/OFELIA
[2019-01-16] MEDS: Acetaminophen/oxyCODONE 325-5 MG Tab PO PRN ×3 (11:43→21:31)
[2019-01-17] MEDS: Pantoprazole 40 MG Tab.CR PO SCH (06:00)
[2019-01-17] MEDS: Acetaminophen/oxyCODONE 325-5 MG Tab PO PRN ×3 (09:02→22:16)
[2019-01-17] MEDS: Aspirin 325 MG Tab.EC PO SCH (09:03)
[2019-01-17] MEDS: Loratadine 10 MG Tab PO SCH (09:03)
[2019-01-17] MEDS: Losartan 50 MG Tab PO SCH (09:03)
[2019-01-17] MEDS: Escitalopram 20 MG Tab PO SCH (09:04)
[2019-01-17] MEDS: Acetaminophen 650 MG Tab.ER PO SCH ×3 (09:04→20:18)
[2019-01-17] MEDS ORDERED: Potassium Chloride 8 MEQ Tab.ER PO SCH (10:45)
[2019-01-18] MEDS: Pantoprazole 40 MG Tab.CR PO SCH (05:48)
[2019-01-18] MEDS: Aspirin 325 MG Tab.EC PO SCH (08:19)
[2019-01-18] MEDS: Acetaminophen 650 MG Tab.ER PO SCH ×3 (08:19→20:27)
[2019-01-18] MEDS: Loratadine 10 MG Tab PO SCH (08:20)
[2019-01-18] MEDS: Losartan 50 MG Tab PO SCH (08:20)
[2019-01-18] MEDS: Escitalopram 20 MG Tab PO SCH (08:22)
[2019-01-18] MEDS: Acetaminophen/oxyCODONE 325-5 MG Tab PO PRN ×2 (08:57→18:08)
[2019-01-19] MEDS: Acetaminophen/oxyCODONE 325-5 MG Tab PO PRN ×4 (01:59→21:33)
[2019-01-19] MEDS: Pantoprazole 40 MG Tab.CR PO SCH (06:50)
[2019-01-19] MEDS: Aspirin 325 MG Tab.EC PO SCH (07:59)
[2019-01-19] MEDS: Acetaminophen 650 MG Tab.ER PO SCH ×3 (07:59→20:45)
[2019-01-19] MEDS: Loratadine 10 MG Tab PO SCH (07:59)
[2019-01-19] MEDS: Losartan 50 MG Tab PO SCH (08:00)
[2019-01-19] MEDS: Escitalopram 20 MG Tab PO SCH (08:00)
[2019-01-20] MEDS: Pantoprazole 40 MG Tab.CR PO SCH (06:32)
[2019-01-20] MEDS: Acetaminophen/oxyCODONE 325-5 MG Tab PO PRN ×3 (09:07→18:52)
[2019-01-20] MEDS: Loratadine 10 MG Tab PO SCH (09:09)
[2019-01-20] MEDS: Acetaminophen 650 MG Tab.ER PO SCH ×3 (09:10→20:57)
[2019-01-20] MEDS: Escitalopram 20 MG Tab PO SCH (09:10)
[2019-01-20] MEDS: Losartan 50 MG Tab PO SCH (09:10)
[2019-01-20] MEDS: Aspirin 325 MG Tab.EC PO SCH (09:10)
[2019-01-21] MEDS: Pantoprazole 40 MG Tab.CR PO SCH (06:48)
[2019-01-21] MEDS: Acetaminophen/oxyCODONE 325-5 MG Tab PO PRN (08:18)
[2019-01-21] MEDS: Loratadine 10 MG Tab PO SCH (08:19)
[2019-01-21] MEDS: Aspirin 325 MG Tab.EC PO SCH (08:19)
[2019-01-21] MEDS: Acetaminophen 650 MG Tab.ER PO SCH (08:19)
[2019-01-21] MEDS: Losartan 50 MG Tab PO SCH (08:19)
[2019-01-21] MEDS: Escitalopram 20 MG Tab PO SCH (08:19)
--- NOTE | 2019-01-21 20:20 | DISCH ---
DISCHARGE DATE: 01/21/2019 HISTORY: Regina is a 63-year-old woman who fell while walking her dog on 01/10/2019 and sustained a right hip fracture and a left metatarsal fracture. She underwent right hemiarthroplasty of the hip on 01/11/[address] Amin and was placed in a CAM walker for her foot. Once she completed acute care, she was discharged to swing bed on 01/15/2019. She has been in swing bed receiving therapy and is now deemed ready for discharge to home. Postop, she developed the brief period of O2 desaturation. Chest x-ray showed apparent cardiomegaly. However, she had a followup echocardiogram that showed completely normal heart function. Also, ordered but pending at the time of discharge are a DEXA scan. She is discharged home in good condition to use medications as follows: 1. Tylenol No.3 1 to 2 three times a day p.r.n. pain. 2. Tylenol 650 mg q.i.d. p.r.n. mild pain. 3. Aspirin 325 mg daily. 4. Lexapro 20 mg daily. 5. Loratadine 10 mg daily. 6. Losartan 50 mg daily. 7. Protonix 40 mg daily. 8. Senna-S one b.i.d. p.r.n. 9. Trazodone 100 mg two tablets at bedtime. She is asked to have followup with Dr. Amin in Orthopedics per his instructions and follow up with her regular doctor p.r.n. /[id number] Ryan GLYNN/OFELIA
--- NOTE | 2019-01-26 07:39 | CR ---
INDICATION: Hip fracture, postmenopausal screening. BONE DENSITOMETRY DEXA SCAN: The bone density of the lumbar spine from L1 through L4 measures 1.090 gm/cm2. This represents a value 92% that of a young adult. The T-score of -0.7 is normal. The fracture risk is low. The total bone mineral density of the left hip neck measures 0.698 gm/cm2. This represents a value 67% that of a young adult. The T-score of -2.4 is low. The fracture risk is moderately high. The bone density of the distal left forearm, radius 33% was 0.823 gm/cm2. This represents a value 94% that of a young adult. The T-score of -0.6 is normal. The fracture risk is low. IMPRESSION: Osteopenia. Dual femur FRAX 10-year probability of fracture: Major osteoporotic 19.8%. Hip fracture 4.0%. Population [place] (). Based on dual-femur neck BMD. RECOMMENDATIONS: Osteopenia in a postmenopausal patient usually requires treatment because of the significant fracture risk. Increase intake of calcium to 1500 mg with Vitamin D (400-800 international units) a day. Start a weightbearing exercise: Walking, cycling, cross-country skiing, aerobic dancing, weightlifting, etc. Antiresorptive therapy with bisphosphates, Raloxifene is indicated. Because of age, patient most likely would not tolerate estrogen. (The effectiveness, potential side effects, and contraindications of each drug should be assessed before selection.) Follow up 2 years. TIESHA
== END 2019-01-21 11:14 | disposition home or self-care (01) | DRG 559 ==
LOC: FB.MS 11:16
PROVIDERS: ADMIT Family Medicine; ATTEND Family Medicine
DX: Z47.1 Aftercare following joint replacement surgery (principal); S72.001A Fracture of unspecified part of neck of right femur, initial encounter for closed fracture; I10 Essential (primary) hypertension; S92.302A Fracture of unspecified metatarsal bone(s), left foot, initial encounter for closed fracture; W01.0XXA Fall on same level from slipping, tripping and stumbling without subsequent striking against object, initial encounter; F32.9 Major depressive disorder, single episode, unspecified; F41.9 Anxiety disorder, unspecified; K21.9 Gastro-esophageal reflux disease without esophagitis; Z91.041 Radiographic dye allergy status; Z79.82 Long term (current) use of aspirin; Z79.899 Other long term (current) drug therapy; F17.210 Nicotine dependence, cigarettes, uncomplicated
CPT/HCPCS: 36415; 73502-RT; 77080; 80048; 83880; 84443; 85025; 93306; 97110-GP; 97116-GP; 97530-GO; 97535-GO; 97760-GO; A9270-GY

== ENCOUNTER 2019-05-12 08:13 | Day surgery (SDC) | payer OTHER ==
[2019-05-12] MEDS ORDERED: Propofol 200 MG/20 ML SDV IV ONE (08:14)
[2019-05-12] MEDS ORDERED: Lidocaine 1% PF 2 ML SDV INJECT ONE (08:14)
[2019-05-12] MEDS ORDERED: Sodium Chloride 0.9% 10 ML Syringe FLUSH PRN (08:15)
[2019-05-12] MEDS ORDERED: Lactated Ringers 1,000 ML IV SCH (08:15)
--- NOTE | 2019-05-12 09:53 | PCM.OPNOTE ---
- General Post-Op/Procedure Note Date of Surgery/Procedure: 05/12/19 Operative Procedure(s): c scope Findings: nl exam Pre Op Diagnosis: screening Post-Op Diagnosis: Same Anesthesia Technique: MAC Primary Surgeon: Byron Michael Anesthesia Provider: Mulugeta Stewart Pathology: none Complications: None Condition: Good Free Text/Narrative:: see dictation
--- NOTE | 2019-05-12 10:18 | OR ---
DATE OF OPERATION: 05/12/2019 SURGEON: Bryon Michael MD PROCEDURE PERFORMED: Colonoscopy. PREOPERATIVE DIAGNOSIS: Colon cancer screening. POSTOPERATIVE DIAGNOSIS: Normal exam. INDICATIONS FOR PROCEDURE: A 64-year-old white female who presents for followup scope. DESCRIPTION OF OPERATION: After an excellent IV sedation was administered, digital rectal exam was performed. No marked abnormality was noted. Flexible colonoscope was inserted and advanced to the cecum. Prep was excellent. The following findings were noted. Ascending colon was unremarkable. Transverse colon was unremarkable. Descending colon, unremarkable. Sigmoid and rectum, unremarkable. Colon was deflated. Scope was removed. Patient tolerated the procedure well. RECOMMENDATIONS: Repeat colonoscopy in 10 years, roland rivera /[id number] BRINDA/OFELIA
== END 2019-05-12 11:12 | disposition home or self-care (01) ==
LOC: FB.SDS 08:13
PROVIDERS: ATTEND Surgery
DX: Z12.11 Encounter for screening for malignant neoplasm of colon (principal); I10 Essential (primary) hypertension; K21.9 Gastro-esophageal reflux disease without esophagitis; F41.9 Anxiety disorder, unspecified; Z87.891 Personal history of nicotine dependence; Z86.010 Personal history of colon polyps; Z91.041 Radiographic dye allergy status; Z79.51 Long term (current) use of inhaled steroids; Z79.82 Long term (current) use of aspirin; Z79.899 Other long term (current) drug therapy
CPT/HCPCS: G0105; J2001; J2704; J7120

== ENCOUNTER 2019-11-19 13:34 | Inpatient (IN) | payer OTHER, MEDICARE ==
[2019-11-19] MEDS ORDERED: Fluticasone Propionate Nasal Spray 16 GM Bottle NASBOTH PRN (16:43)
[2019-11-19] MEDS ORDERED: Lactulose Soln 10 GM/15 ML 30 ML UD Cup PO PRN (16:43)
[2019-11-19] MEDS ORDERED: Albuterol 8 GM Inhaler INH PRN (16:43)
[2019-11-19] MEDS ORDERED: Loratadine 10 MG Tab PO PRN (16:43)
[2019-11-19] MEDS ORDERED: Ampicillin 2 GM Vial IV SCH (16:45)
[2019-11-19] MEDS ORDERED: Warfarin Sliding Scale PO SCH ×2 (16:45)
[2019-11-19] MEDS ORDERED: cefTRIAXone 2 GM Vial IV SCH (16:45)
[2019-11-19] MEDS: cefTRIAXone 2 GM Vial IVPUSH SCH (17:28)
--- NOTE | 2019-11-19 17:28 | PCM.HP.2 ---
H&P History of Present Illness - General Date of Service: 11/19/19 Admit Problem/Dx: Admission Diagnosis/Problem Admission Diagnosis/Problem Endocarditis Source of Information: Patient, Old Records History Limitations: Reports: No Limitations - History of Present Illness Initial Comments - Free Text/Narative: This is a 64-year-old female patient comes in today that's transferred from [place] because of enterococcus sepsis for IV antibiotics, PT and OT for strengthening and ADLs. Patient is doing well today other than she has a little left foot pain. 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 She was in the hospital for a while got out and a few months later at the end of September she started having chills. She thought she had coronavirus and was tested and limited blood cultures are positive. She was transferred to [place] for IV antibiotics. Today she is doing well. She denies fevers, chills, cough, chest pain, shortness of breath, dysuria, pyuria, hematuria. She was having problems with constipation but now she is moving her bowels. She did have anemia and she was as she is 1 unit today. Left Foot Pain Score (Numeric/FACES): 7 - Related Data Allergies/Adverse Reactions: Allergies Allergy/AdvReac Type Severity Reaction Status Date / Time X-RAY DDYE Allergy Severe Hives Uncoded 05/12/19 08:55 Home Medications: Home Meds Escitalopram [Lexapro] 20 mg PO DAILY 01/11/19 [History] Pantoprazole [ProTONIX] 40 mg PO DAILY@0600 01/11/19 [History] Albuterol [Proventil HFA] 2 puff INH Q4H PRN 05/11/19 [History] Acetaminophen [Tylenol Arthritis Pain] 650 mg PO BEDTIME 11/19/19 [History] Ampicillin 2 gm IV Q4H 11/19/19 [History] Aspirin 81 mg PO DAILY 11/19/19 [History] Calcium 200 200 mg PO DAILY 11/19/19 [History] Fluticasone Propionate [Flonase] 1 spray NASBOTH BID PRN 11/19/19 [History] Gabapentin [Neurontin] 200 mg PO TID 11/19/19 [History] Heparin Sodium,Porcine/PF [Heparin Lock Flush 100 Unit/ml] 300 units FLUSH Q4H 11/19/19 [History] Lactulose [Cephulac] 30 ml PO DAILY PRN 11/19/19 [History] Loratadine 10 mg PO DAILY PRN 11/19/19 [History] Warfarin Sliding Scale [Coumadin Sliding Scale] 1 ea PO ASDIRECTED 11/19/19 [ History] amLODIPine Besylate [Amlodipine Besylate] 10 mg PO DAILY 11/19/19 [History] carvediloL [Coreg] 6.25 mg PO BIDMEALS 11/19/19 [History] cefTRIAXone [Rocephin] 2 gm IV Q12H 11/19/19 [History] Past Medical History HEENT History: Reports: Allergic Rhinitis, Hard of Hearing, Impaired Vision, Other (See Below) Other HEENT History: hayfever Cardiovascular History: Reports: Afib, Bacterial Endocarditis, Blood Clots/VTE/ DVT, Heart Valve Replacement, Hypertension, Other (See Below) Other Cardiovascular History: hx afib. arotic dissectiion. blood clot groin. heart surgery put new valve in. had chest tube past admission in [place] was DCed , drain site scabbed over Respiratory History: Reports: None Gastrointestinal History: Reports: Colon Polyp, GERD Genitourinary History: Reports: None [employer] History: Reports: Other OB/BYN History: Musculoskeletal History: Reports: Fracture Neurological History: Reports: Other (See Below) Other Neuro History: INSOMNIA, OTHER EXTRAPYRAMIDAL DISEASE AND ABNORMAL MOVEMENT DISORDER Psychiatric History: Reports: Anxiety, Depression Endocrine/Metabolic History: Reports: Obesity/BMI 30+ Hematologic History: Reports: Blood Transfusion(s) Immunologic History: Reports: None Oncologic (Cancer) History: Reports: None Dermatologic History: Reports: None - Infectious Disease History Infectious Disease History: Reports: Chicken Pox, Measles, Shingles - Past Surgical History HEENT Surgical History: Reports: None Cardiovascular Surgical History: Reports: Valve Replacement Respiratory Surgical History: Reports: None GI Surgical History: Reports: Colonoscopy, EGD Female Surgical History: Reports: Section, Tubal Ligation Endocrine Surgical History: Reports: None Neurological Surgical History: Reports: None Musculoskeletal Surgical History: Reports: Hip Replacement, Other (See Below) Other Musculoskeletal Surgeries/Procedures:: LEFT FOOT SURGERY. right partial hip replacement Dermatological Surgical History: Reports: None Social & Family History - Family History Family Medical History: Noncontributory - Tobacco Use Smoking Status *Q: Former Smoker Years of Tobacco use: 20 Used Tobacco, but Quit: Yes Month/Year Tobacco Last Used: december 2018 Second Hand Smoke Exposure: No - Caffeine Use Caffeine Use: Reports: Coffee - Recreational Drug Use Recreational Drug Use: No - Living Situation & Occupation Occupation: Retired H&P Review of Systems - Review of Systems: Review Of Systems: See Below General: Reports: No Symptoms HEENT: Reports: No Symptoms Pulmonary: Reports: No Symptoms Cardiovascular: Reports: No Symptoms Gastrointestinal: Reports: No Symptoms Genitourinary: Reports: No Symptoms Musculoskeletal: Reports: Other (Foot pain) Skin: Reports: No Symptoms Psychiatric: Reports: No Symptoms Neurological: Reports: No Symptoms Hematologic/Lymphatic: Reports: No Symptoms Immunologic: Reports: No Symptoms Exam - Exam Exam: See Below - Vital Signs Vital Signs: Last Vital Signs Temp 98.9 F 11/19/19 15:16 Pulse Resp 16 11/19/19 15:16 BP 115/68 11/19/19 15:16 Pulse Ox 98 11/19/19 15:16 Weight: 138 lb 1.6 oz - Exam General: Alert, Oriented, Cooperative HEENT: Conjunctiva Clear, Hearing Intact, Mucosa Moist & [place], Posterior Pharynx Clear, TMs Clear Neck: Supple, Trachea Midline Lungs: Clear to Auscultation, Normal Respiratory Effort. No: Crackles, Rales, Rhonchi, Rub Cardiovascular: Regular Rate, Regular Rhythm, Systolic Murmur GI/Abdominal Exam: Normal Bowel Sounds, Soft, Non-Tender, No Organomegaly, No Distention, No Abnormal Bruit, No Mass Back Exam: Other (She has a hematoma left back secondary to a drain was removed. ) Extremities: Normal Inspection, No Pedal Edema, Other (Mild tenderness left fifth metatarsal bone. Rest the foot looks normal for swelling or erythema.) Sepsis Event Note - Evaluation Sepsis Screening Result: No Definite Risk - Focused Exam Vital Signs: Vital Signs Temp Resp BP Pulse Ox 11/19/19 15:16 98.9 F 16 115/68 98 Date Exam was Performed: 11/19/19 Time Exam was Performed: 17:23 - Problem List (1) Endocarditis SNOMED Code(s): 76997950 ICD Code: I38 - ENDOCARDITIS, VALVE UNSPECIFIED Status: Acute Current Visit: Yes (2) Left foot pain SNOMED Code(s): 38904874 ICD Code: M79.672 - PAIN IN LEFT FOOT Status: Acute Current Visit: Yes (3) Anemia SNOMED Code(s): 331809021 ICD Code: D64.9 - ANEMIA, UNSPECIFIED Status: Acute Current Visit: Yes Problem List Initiated/Reviewed/Updated: Yes Orders Last 24hrs: Active Orders 24 hr Category Date Time Status Patient Status [ADT] Routine ADT 11/19/19 17:20 Ordered Height and Weight [RC] WEEKLY Care 11/19/19 17:20 Ordered Oxygen Therapy [RC] PRN Care 11/19/19 17:20 Ordered VTE/DVT Education [RC] Per Unit Routine Care 11/19/19 17:20 Ordered Vital Signs [RC] PER UNIT ROUTINE Care 11/19/19 17:20 Ordered OT Evaluation and Treatment [CONS] Routine Cons 11/19/19 17:20 Ordered PT Evaluation and Treatment [CONS] Routine Cons 11/19/19 17:20 Ordered Regular Diet [DIET] Diet 11/19/19 Dinner Ordered CBC WITH AUTO DIFF [HEME] Routine Lab 11/22/19 06:00 Ordered COMPREHENSIVE METABOLIC PN,CMP [CHEM] Routine Lab 11/22/19 06:00 Ordered Acetaminophen [Tylenol Arthritis Pain] Med 11/19/19 21:00 Active 650 mg PO BEDTIME Albuterol [Ventolin HFA] Med 11/19/19 16:43 Active 0 gm INH Q4H PRN Ampicillin 2 gm Med 11/19/19 17:00 Active Sodium Chloride 0.9% [Normal Saline] 100 ml IV Q4H Aspirin Med 11/20/19 09:00 Active 81 mg PO DAILY Calcium Carbonate [Oyster Shell Calcium] Med 11/20/19 09:00 Active 500 mg PO DAILY Escitalopram [Lexapro] Med 11/20/19 09:00 Active 20 mg PO DAILY Fluticasone Propionate [Flonase] Med 11/19/19 16:43 Active 0 gm NASBOTH BID PRN Gabapentin [Neurontin] Med 11/19/19 17:00 Active 200 mg PO TID Heparin Sodium [Heparin Lock Flush 100 Units/ML] Med 11/19/19 17:30 Active 300 units FLUSH Q4H Lactulose [Cephulac] Med 11/19/19 16:43 Active 20 gm PO DAILY PRN Loratadine [Claritin] Med 11/19/19 16:43 Active 10 mg PO DAILY PRN Pantoprazole [ProTONIX] Med 11/20/19 06:00 Active 40 mg PO DAILY@0600 Warfarin Sliding Scale [Coumadin Sliding Scale] Med 11/19/19 16:45 Pending 1 each PO ASDIRECTED Warfarin [Coumadin] Med 11/20/19 16:00 Active 1.25 mg PO 1600 amLODIPine [Norvasc] Med 11/20/19 09:00 Active 10 mg PO DAILY carvediloL [Coreg] Med 11/19/19 18:00 Active 6.25 mg PO BIDMEALS cefTRIAXone [Rocephin] Med 11/19/19 16:45 Active 2 gm IVPUSH Q12H Resuscitation Status Routine Resus Stat 11/19/19 17:20 Ordered Medication Orders Acetaminophen (Tylenol Arthritis Pain) 650 mg PO BEDTIME [facility] Albuterol (Ventolin Hfa) 0 gm INH Q4H PRN PRN Reason: Shortness of Breath Amlodipine Besylate (Norvasc) 10 mg PO DAILY [facility] Aspirin (Aspirin) 81 mg PO DAILY [facility] Calcium Carbonate/Glycine (Oyster Shell Calcium) 500 mg PO DAILY [facility] Carvedilol (Coreg) 6.25 mg PO BIDMEALS [facility] Ceftriaxone Sodium (Rocephin) 2 gm IVPUSH Q12H [facility] Stop: 12/19/19 23:59 Escitalopram Oxalate (Lexapro) 20 mg PO DAILY [facility] Fluticasone Propionate (Flonase) 0 gm NASBOTH BID PRN PRN Reason: Allergies Gabapentin (Neurontin) 200 mg PO TID [facility] Heparin Sodium (Porcine) (Heparin Lock Flush 100 Units/Ml) 300 units FLUSH Q4H [facility] Ampicillin Sodium 2 gm/ Sodium (Chloride) 100 mls @ 200 mls/hr IV Q4H [facility] Stop: 12/19/19 23:59 Lactulose (Cephulac) 20 gm PO DAILY PRN PRN Reason: Constipation Loratadine (Claritin) 10 mg PO DAILY PRN PRN Reason: Allergies Pantoprazole Sodium (Protonix) 40 mg PO DAILY@0600 [facility] Warfarin Sodium (Coumadin Sliding Scale) 1 each PO ASDIRECTED [facility] Warfarin Sodium (Coumadin) 1.25 mg PO 1600 [facility] Stop: 11/21/19 16:01 Assessment/Plan Comment:: 1. Admit to swing bed. 2. PT/OT 3. IV antibiotics and Coumadin managed by pharmacy. 4. Up with assist 5. Regular diet 6. Continue home medications. 7. CBC/CMP 3 days from now on Friday. - Mortality Measure Prognosis:: Good
[2019-11-19] MEDS: Sodium Chloride 0.9% 10 ML Syringe FLUSH PRN ×4 (17:30→21:57)
[2019-11-19] MEDS: Ampicillin 2 GM in Sodium Chloride 0.9% 100 ML IV SCH ×2 (17:31→21:05)
[2019-11-19] MEDS: Gabapentin 100 MG Cap PO SCH ×2 (17:31→21:39)
[2019-11-19] MEDS: Carvedilol 6.25 MG Tab PO SCH (18:16)
[2019-11-19] MEDS ORDERED: Acetaminophen 650 MG Tab.ER PO SCH (21:00)
[2019-11-19] MEDS: Acetaminophen 500 MG Tab PO SCH (21:36)
[2019-11-20] MEDS: Ampicillin 2 GM in Sodium Chloride 0.9% 100 ML IV SCH ×6 (00:43→21:07)
[2019-11-20] MEDS: cefTRIAXone 2 GM Vial IVPUSH SCH ×2 (04:51→16:45)
[2019-11-20] MEDS: Sodium Chloride 0.9% 10 ML Syringe FLUSH PRN ×8 (04:56→21:44)
[2019-11-20] MEDS: Pantoprazole 40 MG Tab.CR PO SCH (05:32)
[2019-11-20] MEDS: Carvedilol 6.25 MG Tab PO SCH ×2 (08:34→17:18)
[2019-11-20] MEDS: Gabapentin 100 MG Cap PO SCH ×3 (08:35→21:00)
[2019-11-20] MEDS: Aspirin 81 MG Tab.Chew PO SCH (08:36)
[2019-11-20] MEDS: Calcium Carbonate 500 MG Tablet PO SCH (08:36)
[2019-11-20] MEDS: Escitalopram 20 MG Tab PO SCH (08:37)
[2019-11-20] MEDS: amLODIPine 10 MG Tab PO SCH (08:37)
[2019-11-20] MEDS: Acetaminophen 500 MG Tab PO SCH ×3 (08:46→21:05)
[2019-11-20] MEDS: Warfarin 2.5 MG Tab PO SCH (16:43)
[2019-11-21] MEDS: Sodium Chloride 0.9% 10 ML Syringe FLUSH PRN ×10 (01:10→21:15)
[2019-11-21] MEDS: Ampicillin 2 GM in Sodium Chloride 0.9% 100 ML IV SCH ×6 (01:21→20:37)
[2019-11-21] MEDS: cefTRIAXone 2 GM Vial IVPUSH SCH ×2 (05:02→16:31)
[2019-11-21] MEDS: Pantoprazole 40 MG Tab.CR PO SCH (05:50)
[2019-11-21] MEDS: Carvedilol 6.25 MG Tab PO SCH ×2 (08:26→17:00)
[2019-11-21] MEDS: Acetaminophen 500 MG Tab PO SCH ×3 (08:30→20:30)
[2019-11-21] MEDS: Gabapentin 100 MG Cap PO SCH ×3 (08:30→20:27)
[2019-11-21] MEDS: Escitalopram 20 MG Tab PO SCH (08:31)
[2019-11-21] MEDS: Aspirin 81 MG Tab.Chew PO SCH (08:31)
[2019-11-21] MEDS: Calcium Carbonate 500 MG Tablet PO SCH (08:31)
[2019-11-21] MEDS: amLODIPine 10 MG Tab PO SCH (08:31)
--- NOTE | 2019-11-21 08:34 | PCM.PN ---
- General Info Date of Service: 11/21/19 Admission Dx/Problem (Free Text): The patient states her left foot still hurts a little bit when she bears weight. She denies any chest pain, shortness breath, fevers, chills, night sweats. - Patient Data Vitals - Most Recent: Last Vital Signs Temp 98.5 F 11/20/19 08:00 Pulse 80 11/21/19 08:26 Resp 16 11/20/19 08:00 BP 139/79 11/21/19 08:31 Pulse Ox 95 11/20/19 08:00 Weight - Most Recent: 138 lb 1.6 oz I&O - Last 24 Hours: Intake & Output 11/20/19 11/21/19 11/21/19 22:59 06:59 14:59 Intake Total 199 200 Balance 199 200 Med Orders - Current: Current Medications Acetaminophen (Tylenol Extra Strength) 1,000 mg PO TID [facility] Last Admin: 11/21/19 08:30 Dose: 1,000 mg Albuterol (Ventolin Hfa) 0 gm INH Q4H PRN PRN Reason: Shortness of Breath Amlodipine Besylate (Norvasc) 10 mg PO DAILY [facility] Last Admin: 11/21/19 08:31 Dose: 10 mg Aspirin (Aspirin) 81 mg PO DAILY [facility] Last Admin: 11/21/19 08:31 Dose: 81 mg Calcium Carbonate/Glycine (Oyster Shell Calcium) 500 mg PO DAILY [facility] Last Admin: 11/21/19 08:31 Dose: 500 mg Carvedilol (Coreg) 6.25 mg PO BIDMEALS [facility] Last Admin: 11/21/19 08:26 Dose: 6.25 mg Ceftriaxone Sodium (Rocephin) 2 gm IVPUSH Q12H [facility] Stop: 12/19/19 23:59 Last Admin: 11/21/19 05:02 Dose: 2 gm Escitalopram Oxalate (Lexapro) 20 mg PO DAILY [facility] Last Admin: 11/21/19 08:31 Dose: 20 mg Fluticasone Propionate (Flonase) 0 gm NASBOTH BID PRN PRN Reason: Allergies Gabapentin (Neurontin) 200 mg PO TID [facility] Last Admin: 11/21/19 08:30 Dose: 200 mg Heparin Sodium (Porcine) (Heparin Lock Flush 100 Units/Ml) 300 units FLUSH Q4H [facility] Last Admin: 11/21/19 05:50 Dose: 300 units Ampicillin Sodium 2 gm/ Sodium (Chloride) 100 mls @ 200 mls/hr IV Q4H [facility] Stop: 12/19/19 23:59 Last Admin: 11/21/19 05:06 Dose: 200 mls/hr Lactulose (Cephulac) 20 gm PO DAILY PRN PRN Reason: Constipation Loratadine (Claritin) 10 mg PO DAILY PRN PRN Reason: Allergies Pantoprazole Sodium (Protonix) 40 mg PO DAILY@0600 [facility] Last Admin: 11/21/19 05:50 Dose: 40 mg Sodium Chloride (Saline Flush) 10 ml FLUSH ASDIRECTED PRN PRN Reason: Keep Vein Open Last Admin: 11/21/19 08:27 Dose: 10 ml Warfarin Sodium (Coumadin Sliding Scale) 1 each PO ASDIRECTED [facility] Warfarin Sodium (Coumadin) 1.25 mg PO 1600 [facility] Stop: 11/21/19 16:01 Last Admin: 11/20/19 16:43 Dose: 1.25 mg Discontinued Medications Acetaminophen (Tylenol Arthritis Pain) 650 mg PO BEDTIME [facility] - Exam General: Alert, Oriented, Cooperative Lungs: Clear to Auscultation, Normal Respiratory Effort Cardiovascular: Regular Rate, Regular Rhythm, Murmurs Sepsis Event Note - Evaluation Sepsis Screening Result: No Definite Risk - Focused Exam Vital Signs: Vital Signs Pulse BP 11/21/19 08:31 139/79 11/21/19 08:26 80 139/79 Date Exam was Performed: 11/21/19 Time Exam was Performed: 08:33 - Problem List & Annotations (1) Endocarditis SNOMED Code(s): 80619976 Code(s): I38 - ENDOCARDITIS, VALVE UNSPECIFIED Status: Acute Current Visit: Yes (2) Left foot pain SNOMED Code(s): 80606659 Code(s): M79.672 - PAIN IN LEFT FOOT Status: Acute Current Visit: Yes (3) Anemia SNOMED Code(s): 931893553 Code(s): D64.9 - ANEMIA, UNSPECIFIED Status: Acute Current Visit: Yes - Problem List Review Problem List Initiated/Reviewed/Updated: Yes - My Orders Last 24 Hours: My Active Orders 11/20/19 09:00 Aspirin 81 mg PO DAILY Calcium Carbonate [Oyster Shell Calcium] 500 mg PO DAILY Escitalopram [Lexapro] 20 mg PO DAILY amLODIPine [Norvasc] 10 mg PO DAILY 11/20/19 16:00 Warfarin [Coumadin] 1.25 mg PO 1600 11/22/19 06:00 CBC WITH AUTO DIFF [HEME] Routine COMPREHENSIVE METABOLIC PN,CMP [CHEM] Routine INR,PT,PROTHROMBIN TIME [COAG] DAILY - Plan Plan:: 1. CBC in a.m. 2. Continue to observe the foot. Maybe physical therapy can look at it and see if there is anything they can do to help the discomfort. If she's not improving consider x-ray although she has no history of injury. 3. Continue current care.
[2019-11-21] MEDS: Warfarin 2.5 MG Tab PO SCH (16:30)
[2019-11-22] MEDS: Sodium Chloride 0.9% 10 ML Syringe FLUSH PRN ×10 (00:50→21:44)
[2019-11-22] MEDS: Ampicillin 2 GM in Sodium Chloride 0.9% 100 ML IV SCH ×6 (00:50→21:06)
[2019-11-22] MEDS: cefTRIAXone 2 GM Vial IVPUSH SCH ×2 (04:58→16:53)
[2019-11-22] MEDS: Pantoprazole 40 MG Tab.CR PO SCH (06:04)
[2019-11-22] MEDS: Gabapentin 100 MG Cap PO SCH ×3 (09:03→21:06)
[2019-11-22] MEDS: Carvedilol 6.25 MG Tab PO SCH ×2 (09:04→18:42)
[2019-11-22] MEDS: amLODIPine 10 MG Tab PO SCH (09:04)
[2019-11-22] MEDS: Escitalopram 20 MG Tab PO SCH (09:04)
[2019-11-22] MEDS: Aspirin 81 MG Tab.Chew PO SCH (09:04)
[2019-11-22] MEDS: Calcium Carbonate 500 MG Tablet PO SCH (09:05)
[2019-11-22] MEDS: Acetaminophen 500 MG Tab PO SCH ×3 (09:09→21:06)
[2019-11-22] MEDS: Warfarin 2.5 MG Tab PO SCH (16:53)
[2019-11-23] MEDS: Sodium Chloride 0.9% 10 ML Syringe FLUSH PRN ×11 (01:39→21:39)
[2019-11-23] MEDS: Ampicillin 2 GM in Sodium Chloride 0.9% 100 ML IV SCH ×6 (01:39→21:01)
[2019-11-23] MEDS: cefTRIAXone 2 GM Vial IVPUSH SCH ×2 (05:15→16:51)
[2019-11-23] MEDS: Pantoprazole 40 MG Tab.CR PO SCH (05:57)
[2019-11-23] MEDS: Gabapentin 100 MG Cap PO SCH ×3 (09:28→21:40)
[2019-11-23] MEDS: Aspirin 81 MG Tab.Chew PO SCH (09:28)
[2019-11-23] MEDS: Carvedilol 6.25 MG Tab PO SCH ×2 (09:28→17:02)
[2019-11-23] MEDS: Escitalopram 20 MG Tab PO SCH (09:28)
[2019-11-23] MEDS: Calcium Carbonate 500 MG Tablet PO SCH (09:29)
[2019-11-23] MEDS: Acetaminophen 500 MG Tab PO SCH ×3 (09:29→21:02)
[2019-11-23] MEDS: amLODIPine 10 MG Tab PO SCH (09:29)
[2019-11-23] MEDS: Warfarin 2.5 MG Tab PO SCH (16:51)
[2019-11-24] MEDS: Sodium Chloride 0.9% 10 ML Syringe FLUSH PRN ×10 (00:47→21:21)
[2019-11-24] MEDS: Ampicillin 2 GM in Sodium Chloride 0.9% 100 ML IV SCH ×6 (00:47→21:14)
[2019-11-24] MEDS: cefTRIAXone 2 GM Vial IVPUSH SCH ×2 (04:43→16:44)
[2019-11-24] MEDS: Pantoprazole 40 MG Tab.CR PO SCH (05:01)
[2019-11-24] MEDS: Aspirin 81 MG Tab.Chew PO SCH (08:43)
[2019-11-24] MEDS: Carvedilol 6.25 MG Tab PO SCH ×2 (08:43→17:28)
[2019-11-24] MEDS: amLODIPine 10 MG Tab PO SCH (08:44)
[2019-11-24] MEDS: Acetaminophen 500 MG Tab PO SCH ×3 (08:44→21:07)
[2019-11-24] MEDS: Calcium Carbonate 500 MG Tablet PO SCH (08:44)
[2019-11-24] MEDS: Escitalopram 20 MG Tab PO SCH (08:45)
[2019-11-24] MEDS: Gabapentin 100 MG Cap PO SCH ×3 (09:47→21:14)
[2019-11-24] MEDS: Warfarin 2.5 MG Tab PO SCH (16:44)
[2019-11-25] MEDS: Ampicillin 2 GM in Sodium Chloride 0.9% 100 ML IV SCH ×6 (00:39→20:48)
[2019-11-25] MEDS: Sodium Chloride 0.9% 10 ML Syringe FLUSH PRN ×7 (00:40→21:21)
[2019-11-25] MEDS: cefTRIAXone 2 GM Vial IVPUSH SCH ×2 (04:24→16:59)
[2019-11-25] MEDS: Pantoprazole 40 MG Tab.CR PO SCH (06:22)
[2019-11-25] MEDS: Carvedilol 6.25 MG Tab PO SCH ×2 (08:23→17:15)
[2019-11-25] MEDS: Escitalopram 20 MG Tab PO SCH (08:24)
[2019-11-25] MEDS: Acetaminophen 500 MG Tab PO SCH ×3 (08:24→20:50)
[2019-11-25] MEDS: Gabapentin 100 MG Cap PO SCH ×3 (08:24→20:49)
[2019-11-25] MEDS: Calcium Carbonate 500 MG Tablet PO SCH (08:24)
[2019-11-25] MEDS: amLODIPine 10 MG Tab PO SCH (08:24)
[2019-11-25] MEDS: Aspirin 81 MG Tab.Chew PO SCH (08:24)
[2019-11-25] MEDS: Warfarin 2.5 MG Tab PO SCH (17:04)
[2019-11-26] MEDS: Ampicillin 2 GM in Sodium Chloride 0.9% 100 ML IV SCH ×6 (00:23→20:57)
[2019-11-26] MEDS: Sodium Chloride 0.9% 10 ML Syringe FLUSH PRN ×10 (01:05→21:30)
[2019-11-26] MEDS: cefTRIAXone 2 GM Vial IVPUSH SCH ×2 (04:21→16:28)
[2019-11-26] MEDS: Pantoprazole 40 MG Tab.CR PO SCH (05:11)
[2019-11-26] MEDS: Carvedilol 6.25 MG Tab PO SCH ×2 (08:44→17:29)
[2019-11-26] MEDS: Escitalopram 20 MG Tab PO SCH (08:47)
[2019-11-26] MEDS: Aspirin 81 MG Tab.Chew PO SCH (08:47)
[2019-11-26] MEDS: amLODIPine 10 MG Tab PO SCH (08:48)
[2019-11-26] MEDS: Calcium Carbonate 500 MG Tablet PO SCH (08:48)
[2019-11-26] MEDS: Acetaminophen 500 MG Tab PO SCH ×3 (08:48→20:58)
[2019-11-26] MEDS: Gabapentin 100 MG Cap PO SCH ×3 (08:49→20:58)
[2019-11-26] MEDS ORDERED: Warfarin 2.5 MG Tab PO ONE (16:00)
[2019-11-27] MEDS: Ampicillin 2 GM in Sodium Chloride 0.9% 100 ML IV SCH ×6 (00:20→20:53)
[2019-11-27] MEDS: Sodium Chloride 0.9% 10 ML Syringe FLUSH PRN ×10 (00:56→21:26)
[2019-11-27] MEDS: cefTRIAXone 2 GM Vial IVPUSH SCH ×2 (04:34→16:29)
[2019-11-27] MEDS: Pantoprazole 40 MG Tab.CR PO SCH (05:34)
[2019-11-27] MEDS: Carvedilol 6.25 MG Tab PO SCH ×2 (08:53→18:20)
[2019-11-27] MEDS: Aspirin 81 MG Tab.Chew PO SCH (09:01)
[2019-11-27] MEDS: Escitalopram 20 MG Tab PO SCH (09:01)
[2019-11-27] MEDS: Calcium Carbonate 500 MG Tablet PO SCH (09:02)
[2019-11-27] MEDS: amLODIPine 10 MG Tab PO SCH (09:02)
[2019-11-27] MEDS: Acetaminophen 500 MG Tab PO SCH ×3 (09:02→20:56)
[2019-11-27] MEDS: Gabapentin 100 MG Cap PO SCH ×3 (09:06→20:56)
[2019-11-27] MEDS: Warfarin 2.5 MG Tab PO SCH (16:24)
[2019-11-28] MEDS: Ampicillin 2 GM in Sodium Chloride 0.9% 100 ML IV SCH ×6 (00:34→20:53)
[2019-11-28] MEDS: Sodium Chloride 0.9% 10 ML Syringe FLUSH PRN ×11 (01:11→21:25)
[2019-11-28] MEDS: cefTRIAXone 2 GM Vial IVPUSH SCH ×2 (04:38→16:42)
[2019-11-28] MEDS: Pantoprazole 40 MG Tab.CR PO SCH (05:15)
[2019-11-28] MEDS: Escitalopram 20 MG Tab PO SCH (09:01)
[2019-11-28] MEDS: Aspirin 81 MG Tab.Chew PO SCH (09:01)
[2019-11-28] MEDS: amLODIPine 10 MG Tab PO SCH (09:02)
[2019-11-28] MEDS: Gabapentin 100 MG Cap PO SCH ×3 (09:02→20:49)
[2019-11-28] MEDS: Carvedilol 6.25 MG Tab PO SCH ×2 (09:04→18:25)
[2019-11-28] MEDS: Acetaminophen 500 MG Tab PO SCH ×3 (09:04→20:49)
[2019-11-28] MEDS: Calcium Carbonate 500 MG Tablet PO SCH (09:04)
[2019-11-28] MEDS ORDERED: Warfarin 2.5 MG Tab PO SCH (16:00)
[2019-11-29] MEDS: Ampicillin 2 GM in Sodium Chloride 0.9% 100 ML IV SCH ×6 (00:28→20:14)
[2019-11-29] MEDS: Sodium Chloride 0.9% 10 ML Syringe FLUSH PRN ×10 (01:10→20:16)
[2019-11-29] MEDS: cefTRIAXone 2 GM Vial IVPUSH SCH ×2 (04:50→17:11)
[2019-11-29] MEDS: Pantoprazole 40 MG Tab.CR PO SCH (05:10)
[2019-11-29] MEDS: Carvedilol 6.25 MG Tab PO SCH ×2 (09:36→17:06)
[2019-11-29] MEDS: Aspirin 81 MG Tab.Chew PO SCH (09:37)
[2019-11-29] MEDS: Escitalopram 20 MG Tab PO SCH (09:37)
[2019-11-29] MEDS: amLODIPine 10 MG Tab PO SCH (09:37)
[2019-11-29] MEDS: Calcium Carbonate 500 MG Tablet PO SCH (09:38)
[2019-11-29] MEDS: Acetaminophen 500 MG Tab PO SCH ×3 (09:38→20:20)
[2019-11-29] MEDS: Gabapentin 100 MG Cap PO SCH ×3 (10:20→20:19)
[2019-11-29] MEDS: Warfarin 2.5 MG Tab PO SCH (17:05)
[2019-11-30] MEDS: Ampicillin 2 GM in Sodium Chloride 0.9% 100 ML IV SCH ×6 (00:46→20:29)
[2019-11-30] MEDS: Sodium Chloride 0.9% 10 ML Syringe FLUSH PRN ×10 (00:53→20:31)
[2019-11-30] MEDS: cefTRIAXone 2 GM Vial IVPUSH SCH ×2 (04:47→16:45)
[2019-11-30] MEDS: Pantoprazole 40 MG Tab.CR PO SCH (04:59)
[2019-11-30] MEDS: Escitalopram 20 MG Tab PO SCH (09:30)
[2019-11-30] MEDS: Aspirin 81 MG Tab.Chew PO SCH (09:30)
[2019-11-30] MEDS: amLODIPine 10 MG Tab PO SCH (09:30)
[2019-11-30] MEDS: Carvedilol 6.25 MG Tab PO SCH ×2 (09:31→17:35)
[2019-11-30] MEDS: Acetaminophen 500 MG Tab PO SCH ×3 (09:31→20:44)
[2019-11-30] MEDS: Calcium Carbonate 500 MG Tablet PO SCH (09:31)
[2019-11-30] MEDS: Gabapentin 100 MG Cap PO SCH ×3 (09:38→20:35)
[2019-11-30] MEDS: Warfarin 2.5 MG Tab PO SCH (16:45)
[2019-11-30] MEDS ORDERED: Gabapentin 100 MG Cap ONE (20:37)
[2019-12-01] MEDS: Ampicillin 2 GM in Sodium Chloride 0.9% 100 ML IV SCH ×6 (00:54→20:45)
[2019-12-01] MEDS: Sodium Chloride 0.9% 10 ML Syringe FLUSH PRN ×7 (00:54→21:24)
[2019-12-01] MEDS: cefTRIAXone 2 GM Vial IVPUSH SCH ×2 (04:48→16:46)
[2019-12-01] MEDS ORDERED: traMADol 50 MG Tab PO PRN (05:15)
[2019-12-01] MEDS: Pantoprazole 40 MG Tab.CR PO SCH (05:33)
[2019-12-01] MEDS: Carvedilol 6.25 MG Tab PO SCH ×2 (08:25→17:05)
[2019-12-01] MEDS: amLODIPine 10 MG Tab PO SCH (08:26)
[2019-12-01] MEDS: Escitalopram 20 MG Tab PO SCH (08:26)
[2019-12-01] MEDS: Aspirin 81 MG Tab.Chew PO SCH (08:26)
[2019-12-01] MEDS: Calcium Carbonate 500 MG Tablet PO SCH (08:27)
[2019-12-01] MEDS: Acetaminophen 500 MG Tab PO SCH ×3 (08:27→20:46)
[2019-12-01] MEDS: Gabapentin 100 MG Cap PO SCH ×2 (08:34→13:43)
[2019-12-01] MEDS: Warfarin 2.5 MG Tab PO SCH (16:42)
[2019-12-01] MEDS: traMADol 50 MG Tab PO PRN (18:32)
[2019-12-01] MEDS: Gabapentin 300 MG Cap PO SCH (20:46)
[2019-12-02] MEDS: Ampicillin 2 GM in Sodium Chloride 0.9% 100 ML IV SCH ×6 (00:52→20:42)
[2019-12-02] MEDS: Sodium Chloride 0.9% 10 ML Syringe FLUSH PRN ×10 (00:52→21:17)
[2019-12-02] MEDS: cefTRIAXone 2 GM Vial IVPUSH SCH ×2 (04:40→16:54)
[2019-12-02] MEDS: traMADol 50 MG Tab PO PRN ×3 (04:40→20:47)
[2019-12-02] MEDS: Pantoprazole 40 MG Tab.CR PO SCH (05:15)
[2019-12-02] MEDS: Gabapentin 300 MG Cap PO SCH ×3 (09:04→20:42)
[2019-12-02] MEDS: Aspirin 81 MG Tab.Chew PO SCH (09:04)
[2019-12-02] MEDS: Carvedilol 6.25 MG Tab PO SCH ×2 (09:04→17:19)
[2019-12-02] MEDS: Escitalopram 20 MG Tab PO SCH (09:04)
[2019-12-02] MEDS: Acetaminophen 500 MG Tab PO SCH ×3 (09:05→20:42)
[2019-12-02] MEDS: Calcium Carbonate 500 MG Tablet PO SCH (09:05)
[2019-12-02] MEDS: amLODIPine 10 MG Tab PO SCH (09:05)
[2019-12-02] MEDS: Warfarin 2.5 MG Tab PO SCH (16:54)
[2019-12-03] MEDS: Sodium Chloride 0.9% 10 ML Syringe FLUSH PRN ×6 (00:34→20:26)
[2019-12-03] MEDS: Ampicillin 2 GM in Sodium Chloride 0.9% 100 ML IV SCH ×6 (00:34→20:23)
[2019-12-03] MEDS: cefTRIAXone 2 GM Vial IVPUSH SCH ×2 (04:44→16:36)
[2019-12-03] MEDS: Pantoprazole 40 MG Tab.CR PO SCH (05:08)
[2019-12-03] MEDS: Carvedilol 6.25 MG Tab PO SCH ×2 (08:39→18:49)
[2019-12-03] MEDS: Acetaminophen 500 MG Tab PO SCH ×3 (08:42→20:25)
[2019-12-03] MEDS: Calcium Carbonate 500 MG Tablet PO SCH (08:42)
[2019-12-03] MEDS: amLODIPine 10 MG Tab PO SCH (08:42)
[2019-12-03] MEDS: Aspirin 81 MG Tab.Chew PO SCH (08:42)
[2019-12-03] MEDS: Escitalopram 20 MG Tab PO SCH (08:42)
[2019-12-03] MEDS: traMADol 50 MG Tab PO PRN ×2 (08:45→16:38)
[2019-12-03] MEDS: Gabapentin 300 MG Cap PO SCH ×3 (08:45→20:25)
[2019-12-03] MEDS: Warfarin 2.5 MG Tab PO SCH (16:36)
[2019-12-04] MEDS: Ampicillin 2 GM in Sodium Chloride 0.9% 100 ML IV SCH ×6 (01:04→20:55)
[2019-12-04] MEDS: Sodium Chloride 0.9% 10 ML Syringe FLUSH PRN ×9 (01:07→20:57)
[2019-12-04] MEDS: cefTRIAXone 2 GM Vial IVPUSH SCH ×2 (04:36→16:30)
[2019-12-04] MEDS: Pantoprazole 40 MG Tab.CR PO SCH (05:13)
[2019-12-04] MEDS: amLODIPine 10 MG Tab PO SCH (09:12)
[2019-12-04] MEDS: Acetaminophen 500 MG Tab PO SCH ×3 (09:12→20:56)
[2019-12-04] MEDS: Aspirin 81 MG Tab.Chew PO SCH (09:12)
[2019-12-04] MEDS: Gabapentin 300 MG Cap PO SCH ×3 (09:12→20:57)
[2019-12-04] MEDS: Calcium Carbonate 500 MG Tablet PO SCH (09:14)
[2019-12-04] MEDS: Carvedilol 6.25 MG Tab PO SCH ×2 (09:15→17:13)
[2019-12-04] MEDS: traMADol 50 MG Tab PO PRN ×2 (09:15→16:36)
[2019-12-04] MEDS: Escitalopram 20 MG Tab PO SCH (09:15)
--- NOTE | 2019-12-04 09:35 | PCM.PN ---
- General Info Date of Service: 12/04/19 Admission Dx/Problem (Free Text): Regina was up with OT this morning, doing well. Right leg is better but still causes some pain. Denies any right arm pain. No shortness of breath or chest pain. Bowel movements are good. States her fatigue waxes and wanes, depends on the day. OT felt she did well this morning. - Patient Data Vitals - Most Recent: Last Vital Signs Temp 98.1 F 12/03/19 08:36 Pulse 81 12/04/19 09:15 Resp 18 12/03/19 08:36 BP 113/62 12/04/19 09:15 Pulse Ox 96 12/03/19 08:36 Weight - Most Recent: 135 lb 14.4 oz I&O - Last 24 Hours: Intake & Output 12/03/19 12/04/19 12/04/19 22:59 06:59 14:59 Intake Total 200 210 Balance 200 210 Lab Results Last 24 Hours: Laboratory Results - last 24 hr 12/03/19 Range/Units 09:05 PT 25.6 H (9.0-11.1) sec INR 2.52 H (1.00-1.24) Med Orders - Current: Current Medications Acetaminophen (Tylenol Extra Strength) 1,000 mg PO TID [facility] Last Admin: 12/04/19 09:12 Dose: 1,000 mg Albuterol (Ventolin Hfa) 0 gm INH Q4H PRN PRN Reason: Shortness of Breath Amlodipine Besylate (Norvasc) 10 mg PO DAILY [facility] Last Admin: 12/04/19 09:12 Dose: 10 mg Aspirin (Aspirin) 81 mg PO DAILY [facility] Last Admin: 12/04/19 09:12 Dose: 81 mg Calcium Carbonate/Glycine (Oyster Shell Calcium) 500 mg PO DAILY [facility] Last Admin: 12/04/19 09:14 Dose: 500 mg Carvedilol (Coreg) 6.25 mg PO BIDMEALS [facility] Last Admin: 12/04/19 09:15 Dose: 6.25 mg Ceftriaxone Sodium (Rocephin) 2 gm IVPUSH Q12H [facility] Stop: 12/19/19 23:59 Last Admin: 12/04/19 04:36 Dose: 2 gm Escitalopram Oxalate (Lexapro) 20 mg PO DAILY [facility] Last Admin: 12/04/19 09:15 Dose: 20 mg Fluticasone Propionate (Flonase) 0 gm NASBOTH BID PRN PRN Reason: Allergies Gabapentin (Neurontin) 300 mg PO TID [facility] Last Admin: 12/04/19 09:12 Dose: 300 mg Heparin Sodium (Porcine) (Heparin Lock Flush 100 Units/Ml) 300 units FLUSH Q4H [facility] Last Admin: 12/04/19 09:16 Dose: 300 units Ampicillin Sodium 2 gm/ Sodium (Chloride) 100 mls @ 200 mls/hr IV Q4H [facility] Stop: 12/19/19 23:59 Last Admin: 12/04/19 09:15 Dose: 200 mls/hr Lactulose (Cephulac) 20 gm PO DAILY PRN PRN Reason: Constipation Loratadine (Claritin) 10 mg PO DAILY PRN PRN Reason: Allergies Pantoprazole Sodium (Protonix) 40 mg PO DAILY@0600 [facility] Last Admin: 12/04/19 05:13 Dose: 40 mg Sodium Chloride (Saline Flush) 10 ml FLUSH ASDIRECTED PRN PRN Reason: Keep Vein Open Last Admin: 12/04/19 09:16 Dose: 10 ml Tramadol HCl (Ultram) 50 mg PO Q6H PRN PRN Reason: Breakthrough Pain Last Admin: 12/04/19 09:15 Dose: 50 mg Warfarin Sodium (Coumadin Sliding Scale) 1 each PO ASDIRECTED [facility] Warfarin Sodium (Coumadin) 2.5 mg PO DAILY@1600 [facility] Last Admin: 12/03/19 16:36 Dose: 2.5 mg Discontinued Medications Acetaminophen (Tylenol Arthritis Pain) 650 mg PO BEDTIME [facility] Gabapentin (Neurontin) 200 mg PO TID [facility] Last Admin: 12/01/19 13:43 Dose: 200 mg Gabapentin (Neurontin) Confirm Administered Dose 100 mg .ROUTE .STK-MED ONE Stop: 11/30/19 20:38 Last Admin: 11/30/19 21:08 Dose: Not Given Tramadol HCl (Ultram) 100 mg PO Q8H PRN PRN Reason: Pain Last Admin: 12/01/19 05:32 Dose: 100 mg Warfarin Sodium (Coumadin) 1.25 mg PO 1600 [facility] Stop: 11/21/19 16:01 Last Admin: 11/21/19 16:30 Dose: 1.25 mg Warfarin Sodium (Coumadin) 2.5 mg PO MoWeFr@1600 [facility] Last Admin: 11/24/19 16:44 Dose: 2.5 mg Warfarin Sodium (Coumadin) 1.25 mg PO SuTuThSa@1600 [facility] Last Admin: 11/25/19 17:04 Dose: 1.25 mg Warfarin Sodium (Coumadin) 3.75 mg PO ONETIME ONE Stop: 11/26/19 16:01 Last Admin: 11/26/19 15:31 Dose: 3.75 mg Warfarin Sodium (Coumadin) 2.5 mg PO MoWeFrSa@1600 [facility] Last Admin: 11/29/19 17:05 Dose: 2.5 mg Warfarin Sodium (Coumadin) 1.25 mg PO SuTuTh@1600 [facility] Last Admin: 11/28/19 15:41 Dose: 1.25 mg - Exam General: Alert, Oriented, Cooperative, No Acute Distress Lungs: Clear to Auscultation, Normal Respiratory Effort Cardiovascular: Regular Rate, Regular Rhythm, Murmurs (Left 4ICS) GI/Abdominal Exam: Normal Bowel Sounds, Soft, Non-Tender, No Distention Extremities: No Pedal Edema, Leg Pain (right, swollen compared with left but no pitting edema. NT.) Peripheral Pulses: 2+: Radial (L), Radial (R) Wound/Incisions: Healing Well (right groin incision healed.) Sepsis Event Note - Evaluation Sepsis Screening Result: No Definite Risk - Focused Exam Vital Signs: Vital Signs Pulse BP 12/04/19 09:15 81 113/62 12/04/19 09:12 113/62 Date Exam was Performed: 12/04/19 Time Exam was Performed: 09:29 - Problem List & Annotations (1) Endocarditis SNOMED Code(s): 83984249 Code(s): I38 - ENDOCARDITIS, VALVE UNSPECIFIED Status: Acute Current Visit: Yes Qualifiers: Endocarditis type: infective Infective endocarditis organism: bacterial Annotation/Comment:: ID appt on 12/14, Rocephin & Ampicillin through December 18. Cardiothoracic appt was moved from December 05 to December 22. (2) Anemia SNOMED Code(s): 478829924 Code(s): D64.9 - ANEMIA, UNSPECIFIED Status: Acute Current Visit: Yes Qualifiers: Anemia type: unspecified type Qualified Code(s): D64.9 - Anemia, unspecified (3) HTN (hypertension) SNOMED Code(s): 69079044 Code(s): I10 - ESSENTIAL (PRIMARY) HYPERTENSION Status: Chronic Current Visit: No Qualifiers: Hypertension type: essential hypertension Qualified Code(s): I10 - Essential (primary) hypertension - Problem List Review Problem List Initiated/Reviewed/Updated: Yes - My Orders Last 24 Hours: My Active Orders 12/06/19 06:00 IRON AND TIBC Routine - Plan Plan:: 1. CBC, Cr, AST, Iron panel for Friday. 2. Continue to observe the leg for increased pain or swelling. INR within therapeutic range. 3. Continue current care. 4. Care conference on Friday.
[2019-12-04] MEDS: Warfarin 2.5 MG Tab PO SCH (16:29)
[2019-12-05] MEDS: Ampicillin 2 GM in Sodium Chloride 0.9% 100 ML IV SCH ×6 (01:03→20:14)
[2019-12-05] MEDS: Sodium Chloride 0.9% 10 ML Syringe FLUSH PRN ×9 (01:05→20:16)
[2019-12-05] MEDS: traMADol 50 MG Tab PO PRN ×3 (01:16→15:40)
[2019-12-05] MEDS: cefTRIAXone 2 GM Vial IVPUSH SCH ×2 (04:59→17:08)
[2019-12-05] MEDS: Pantoprazole 40 MG Tab.CR PO SCH (05:05)
[2019-12-05] MEDS: Gabapentin 300 MG Cap PO SCH ×3 (08:51→20:15)
[2019-12-05] MEDS: Escitalopram 20 MG Tab PO SCH (08:51)
[2019-12-05] MEDS: amLODIPine 10 MG Tab PO SCH (08:51)
[2019-12-05] MEDS: Carvedilol 6.25 MG Tab PO SCH ×2 (08:51→18:15)
[2019-12-05] MEDS: Acetaminophen 500 MG Tab PO SCH ×3 (08:51→20:15)
[2019-12-05] MEDS: Aspirin 81 MG Tab.Chew PO SCH (08:51)
[2019-12-05] MEDS: Calcium Carbonate 500 MG Tablet PO SCH (08:51)
[2019-12-05] MEDS: Warfarin 2.5 MG Tab PO SCH (17:00)
[2019-12-06] MEDS: Ampicillin 2 GM in Sodium Chloride 0.9% 100 ML IV SCH ×6 (01:06→20:44)
[2019-12-06] MEDS: Sodium Chloride 0.9% 10 ML Syringe FLUSH PRN ×8 (01:09→20:45)
[2019-12-06] MEDS: traMADol 50 MG Tab PO PRN ×3 (01:23→17:04)
[2019-12-06] MEDS: cefTRIAXone 2 GM Vial IVPUSH SCH ×2 (04:57→17:00)
[2019-12-06] MEDS: Pantoprazole 40 MG Tab.CR PO SCH (05:02)
[2019-12-06] MEDS: Carvedilol 6.25 MG Tab PO SCH ×2 (09:04→17:57)
[2019-12-06] MEDS: Acetaminophen 500 MG Tab PO SCH ×3 (09:05→20:44)
[2019-12-06] MEDS: Calcium Carbonate 500 MG Tablet PO SCH (09:05)
[2019-12-06] MEDS: amLODIPine 10 MG Tab PO SCH (09:05)
[2019-12-06] MEDS: Escitalopram 20 MG Tab PO SCH (09:05)
[2019-12-06] MEDS: Aspirin 81 MG Tab.Chew PO SCH (09:05)
[2019-12-06] MEDS: Gabapentin 300 MG Cap PO SCH ×3 (09:37→20:44)
--- NOTE | 2019-12-06 10:10 | PCM.PN ---
- General Info Date of Service: 12/06/19 Admission Dx/Problem (Free Text): Asked to check left posterior chest wall sutures from previous chest tube and check her right thigh. Complaining of deep pain to that leg. History of DVT that was manually removed in that leg in July. Otherwise feeling good. - Patient Data Vitals - Most Recent: Last Vital Signs Temp 98.1 F 12/05/19 08:00 Pulse 65 12/06/19 09:04 Resp 18 12/05/19 08:00 BP 134/70 12/06/19 09:05 Pulse Ox 96 12/05/19 08:00 Weight - Most Recent: 135 lb 14.4 oz I&O - Last 24 Hours: Intake & Output 12/05/19 12/06/19 12/06/19 22:59 06:59 14:59 Intake Total 187 200 Balance 187 200 Lab Results Last 24 Hours: Laboratory Results - last 24 hr 12/06/19 12/06/19 12/06/19 Range/Units 05:35 05:35 05:35 WBC 5.3 (4.5-12.0) X10-3/uL RBC 3.73 (3.23-5.20) x10(6)uL Hgb 10.5 L (11.5-15.5) g/dL Hct 32.3 (30.0-51.3) % MCV 86.6 (80-96) fL MCH 28.1 (27.7-33.6) pg MCHC 32.5 (32.2-35.4) g/dL RDW 14.9 (11.5-15.5) % Plt Count 336 (125-369) X10(3)uL MPV 7.0 L (7.4-10.4) fL Add Manual Diff Yes Neutrophils % (Manual) 39 L (46-82) % Lymphocytes % (Manual) 24 (13-37) % Monocytes % (Manual) 5 (4-12) % Eosinophils % (Manual) 26 H (0-5) % Basophils % (Manual) 6 H (0-2) % PT 26.3 H (9.0-11.1) sec INR 2.60 H (1.00-1.24) Creatinine 0.7 (0.55-1.02) mg/dL Est Cr Clr Drug Dosing 57.55 mL/min Estimated GFR (MDRD) > 60 (>60) ALT 21 D (12-36) U/L Med Orders - Current: Current Medications Acetaminophen (Tylenol Extra Strength) 1,000 mg PO TID [facility] Last Admin: 12/06/19 09:05 Dose: 1,000 mg Albuterol (Ventolin Hfa) 0 gm INH Q4H PRN PRN Reason: Shortness of Breath Amlodipine Besylate (Norvasc) 10 mg PO DAILY [facility] Last Admin: 12/06/19 09:05 Dose: 10 mg Aspirin (Aspirin) 81 mg PO DAILY [facility] Last Admin: 12/06/19 09:05 Dose: 81 mg Calcium Carbonate/Glycine (Oyster Shell Calcium) 500 mg PO DAILY [facility] Last Admin: 12/06/19 09:05 Dose: 500 mg Carvedilol (Coreg) 6.25 mg PO BIDMEALS [facility] Last Admin: 12/06/19 09:04 Dose: 6.25 mg Ceftriaxone Sodium (Rocephin) 2 gm IVPUSH Q12H [facility] Stop: 12/19/19 23:59 Last Admin: 12/06/19 04:57 Dose: 2 gm Escitalopram Oxalate (Lexapro) 20 mg PO DAILY [facility] Last Admin: 12/06/19 09:05 Dose: 20 mg Fluticasone Propionate (Flonase) 0 gm NASBOTH BID PRN PRN Reason: Allergies Gabapentin (Neurontin) 300 mg PO TID [facility] Last Admin: 12/06/19 09:37 Dose: 300 mg Heparin Sodium (Porcine) (Heparin Lock Flush 100 Units/Ml) 300 units FLUSH Q4H [facility] Last Admin: 12/06/19 10:00 Dose: 300 units Ampicillin Sodium 2 gm/ Sodium (Chloride) 100 mls @ 200 mls/hr IV Q4H [facility] Stop: 12/19/19 23:59 Last Admin: 12/06/19 09:17 Dose: 200 mls/hr Lactulose (Cephulac) 20 gm PO DAILY PRN PRN Reason: Constipation Loratadine (Claritin) 10 mg PO DAILY PRN PRN Reason: Allergies Methyl Salicylate (Icy Hot Cream) 0 gm TOP QID [facility] Pantoprazole Sodium (Protonix) 40 mg PO DAILY@0600 [facility] Last Admin: 12/06/19 05:02 Dose: 40 mg Sodium Chloride (Saline Flush) 10 ml FLUSH ASDIRECTED PRN PRN Reason: Keep Vein Open Last Admin: 12/06/19 09:59 Dose: 10 ml Tramadol HCl (Ultram) 50 mg PO Q6H PRN PRN Reason: Breakthrough Pain Last Admin: 12/06/19 09:37 Dose: 50 mg Warfarin Sodium (Coumadin Sliding Scale) 1 each PO ASDIRECTED [facility] Warfarin Sodium (Coumadin) 2.5 mg PO DAILY@1600 [facility] Last Admin: 12/05/19 17:00 Dose: 2.5 mg Discontinued Medications Acetaminophen (Tylenol Arthritis Pain) 650 mg PO BEDTIME [facility] Gabapentin (Neurontin) 200 mg PO TID [facility] Last Admin: 12/01/19 13:43 Dose: 200 mg Gabapentin (Neurontin) Confirm Administered Dose 100 mg .ROUTE .STK-MED ONE Stop: 11/30/19 20:38 Last Admin: 11/30/19 21:08 Dose: Not Given Tramadol HCl (Ultram) 100 mg PO Q8H PRN PRN Reason: Pain Last Admin: 12/01/19 05:32 Dose: 100 mg Warfarin Sodium (Coumadin) 1.25 mg PO 1600 [facility] Stop: 11/21/19 16:01 Last Admin: 11/21/19 16:30 Dose: 1.25 mg Warfarin Sodium (Coumadin) 2.5 mg PO MoWeFr@1600 [facility] Last Admin: 11/24/19 16:44 Dose: 2.5 mg Warfarin Sodium (Coumadin) 1.25 mg PO SuTuThSa@1600 [facility] Last Admin: 11/25/19 17:04 Dose: 1.25 mg Warfarin Sodium (Coumadin) 3.75 mg PO ONETIME ONE Stop: 11/26/19 16:01 Last Admin: 11/26/19 15:31 Dose: 3.75 mg Warfarin Sodium (Coumadin) 2.5 mg PO MoWeFrSa@1600 [facility] Last Admin: 11/29/19 17:05 Dose: 2.5 mg Warfarin Sodium (Coumadin) 1.25 mg PO SuTuTh@1600 [facility] Last Admin: 11/28/19 15:41 Dose: 1.25 mg - Exam Extremities: No Pedal Edema (LLE), Pedal Edema (nonpitting edema of RLE), Leg Pain (TTP with deep palpation of right quadriceps muscle group. Right Ирина's negative.) Wound/Incisions: Healing Well (some gaping with light palpation along wound edges, no erythema), Dressing Dry and Intact, No Drainage (dried blood present.) Sepsis Event Note - Evaluation Sepsis Screening Result: No Definite Risk - Focused Exam Vital Signs: Vital Signs Pulse BP 12/06/19 09:05 134/70 12/06/19 09:04 65 134/70 Date Exam was Performed: 12/06/19 Time Exam was Performed: 10:05 - Problem List & Annotations (1) Right thigh pain SNOMED Code(s): 70786667, 805793019 Code(s): M79.651 - PAIN IN RIGHT THIGH Status: Acute Current Visit: Yes (2) Endocarditis SNOMED Code(s): 71306303 Code(s): I38 - ENDOCARDITIS, VALVE UNSPECIFIED Status: Acute Current Visit: Yes Qualifiers: Endocarditis type: infective Infective endocarditis organism: bacterial Annotation/Comment:: ID appt on 12/14, Rocephin & Ampicillin through December 18. Cardiothoracic appt was moved from December 05 to December 22. (3) Anemia SNOMED Code(s): 715260430 Code(s): D64.9 - ANEMIA, UNSPECIFIED Status: Acute Current Visit: Yes Qualifiers: Anemia type: unspecified type Qualified Code(s): D64.9 - Anemia, unspecified (4) HTN (hypertension) SNOMED Code(s): 72308526 Code(s): I10 - ESSENTIAL (PRIMARY) HYPERTENSION Status: Chronic Current Visit: No Qualifiers: Hypertension type: essential hypertension Qualified Code(s): I10 - Essential (primary) hypertension (5) H/O chest tube placement SNOMED Code(s): 163041916, 480796680 Code(s): Z98.890 - OTHER SPECIFIED POSTPROCEDURAL STATES Status: Chronic Current Visit: Yes - Problem List Review Problem List Initiated/Reviewed/Updated: Yes - My Orders Last 24 Hours: My Active Orders 12/06/19 05:35 IRON AND TIBC Routine 12/06/19 10:00 Menthol/Methyl Salicylate [Icy Hot Cream] 0 gm TOP QID - Plan Plan:: 1. Hgb up to 10.5, Iron panel pending. Will hold off on Iron until we get results back as her anemia is improving on its own. 2. INR within therapeutic range. Will try Muscle rub on her right thigh qid and if pain not improved will do Doppler ultrasound. 3. Care conference this afternoon. ID appt on December 14, through December 18.
[2019-12-06] MEDS: Menthol/Methyl Salicylate 85 GM Tube TOP SCH ×4 (11:17→20:46)
[2019-12-06] MEDS: Warfarin 2.5 MG Tab PO SCH (17:00)
[2019-12-07] MEDS: Sodium Chloride 0.9% 10 ML Syringe FLUSH PRN ×11 (01:18→21:33)
[2019-12-07] MEDS: Ampicillin 2 GM in Sodium Chloride 0.9% 100 ML IV SCH ×6 (01:18→20:55)
[2019-12-07] MEDS: cefTRIAXone 2 GM Vial IVPUSH SCH ×2 (04:45→17:22)
[2019-12-07] MEDS: Pantoprazole 40 MG Tab.CR PO SCH ×2 (04:46→05:27)
[2019-12-07] MEDS: Menthol/Methyl Salicylate 85 GM Tube TOP SCH ×4 (09:04→20:54)
[2019-12-07] MEDS: Carvedilol 6.25 MG Tab PO SCH ×2 (09:08→18:12)
[2019-12-07 09:09] LABS: IRON BIND.CAP.(TIBC) 251 ug/dL (250-450); IRON SATURATION 23 % (15-55); IRON, SERUM 57 ug/dL (27-139); UIBC 194 ug/dL (118-369)
[2019-12-07] MEDS: Calcium Carbonate 500 MG Tablet PO SCH (09:09)
[2019-12-07] MEDS: Escitalopram 20 MG Tab PO SCH (09:09)
[2019-12-07] MEDS: Acetaminophen 500 MG Tab PO SCH ×3 (09:09→20:55)
[2019-12-07] MEDS: Aspirin 81 MG Tab.Chew PO SCH (09:09)
[2019-12-07] MEDS: amLODIPine 10 MG Tab PO SCH (09:10)
[2019-12-07] MEDS: Gabapentin 300 MG Cap PO SCH ×3 (09:13→20:55)
[2019-12-07] MEDS: traMADol 50 MG Tab PO PRN ×2 (09:20→16:27)
[2019-12-07] MEDS: Warfarin 2.5 MG Tab PO SCH (16:23)
[2019-12-08] MEDS: Ampicillin 2 GM in Sodium Chloride 0.9% 100 ML IV SCH ×6 (01:18→21:08)
[2019-12-08] MEDS: Sodium Chloride 0.9% 10 ML Syringe FLUSH PRN ×10 (01:19→21:39)
[2019-12-08] MEDS: Carvedilol 6.25 MG Tab PO SCH ×2 (09:06→17:01)
[2019-12-08] MEDS: Aspirin 81 MG Tab.Chew PO SCH (09:06)
[2019-12-08] MEDS: amLODIPine 10 MG Tab PO SCH (09:07)
[2019-12-08] MEDS: Menthol/Methyl Salicylate 85 GM Tube TOP SCH ×4 (09:07→21:10)
[2019-12-08] MEDS: Gabapentin 300 MG Cap PO SCH ×3 (09:07→21:07)
[2019-12-08] MEDS: Escitalopram 20 MG Tab PO SCH (09:07)
[2019-12-08] MEDS: Acetaminophen 500 MG Tab PO SCH ×3 (09:08→21:08)
[2019-12-08] MEDS: Calcium Carbonate 500 MG Tablet PO SCH (09:08)
[2019-12-08] MEDS: traMADol 50 MG Tab PO PRN ×2 (09:20→17:05)
[2019-12-08] MEDS: Pantoprazole 40 MG Tab.CR PO SCH (09:30)
[2019-12-08] MEDS: cefTRIAXone 2 GM Vial IVPUSH SCH ×2 (09:30→16:47)
[2019-12-08] MEDS: Warfarin 2.5 MG Tab PO SCH (16:46)
[2019-12-09] MEDS: Ampicillin 2 GM in Sodium Chloride 0.9% 100 ML IV SCH ×6 (00:54→21:00)
[2019-12-09] MEDS: Sodium Chloride 0.9% 10 ML Syringe FLUSH PRN ×9 (01:24→21:30)
[2019-12-09] MEDS: cefTRIAXone 2 GM Vial IVPUSH SCH ×2 (04:40→17:02)
[2019-12-09] MEDS: Pantoprazole 40 MG Tab.CR PO SCH (05:28)
[2019-12-09] MEDS: Aspirin 81 MG Tab.Chew PO SCH (08:59)
[2019-12-09] MEDS: Gabapentin 300 MG Cap PO SCH ×3 (08:59→21:02)
[2019-12-09] MEDS: Acetaminophen 500 MG Tab PO SCH ×3 (08:59→21:02)
[2019-12-09] MEDS: Escitalopram 20 MG Tab PO SCH (09:00)
[2019-12-09] MEDS: Carvedilol 6.25 MG Tab PO SCH ×2 (09:00→17:04)
[2019-12-09] MEDS: Calcium Carbonate 500 MG Tablet PO SCH (09:00)
[2019-12-09] MEDS: amLODIPine 10 MG Tab PO SCH (09:01)
[2019-12-09] MEDS: Menthol/Methyl Salicylate 85 GM Tube TOP SCH ×4 (09:01→21:02)
[2019-12-09] MEDS: traMADol 50 MG Tab PO PRN ×2 (09:04→17:17)
[2019-12-09] MEDS: Warfarin 2.5 MG Tab PO SCH (16:58)
[2019-12-10] MEDS: Ampicillin 2 GM in Sodium Chloride 0.9% 100 ML IV SCH ×6 (00:56→20:20)
[2019-12-10] MEDS: Sodium Chloride 0.9% 10 ML Syringe FLUSH PRN ×6 (01:25→20:53)
[2019-12-10] MEDS: cefTRIAXone 2 GM Vial IVPUSH SCH ×2 (04:56→16:31)
[2019-12-10] MEDS: Pantoprazole 40 MG Tab.CR PO SCH (05:10)
[2019-12-10] MEDS: amLODIPine 10 MG Tab PO SCH (08:58)
[2019-12-10] MEDS: Menthol/Methyl Salicylate 85 GM Tube TOP SCH ×4 (08:58→20:23)
[2019-12-10] MEDS: Gabapentin 300 MG Cap PO SCH ×3 (08:58→20:23)
[2019-12-10] MEDS: Escitalopram 20 MG Tab PO SCH (08:58)
[2019-12-10] MEDS: Carvedilol 6.25 MG Tab PO SCH ×2 (08:58→17:12)
[2019-12-10] MEDS: Aspirin 81 MG Tab.Chew PO SCH (08:58)
[2019-12-10] MEDS: Acetaminophen 500 MG Tab PO SCH ×3 (08:58→20:23)
[2019-12-10] MEDS: traMADol 50 MG Tab PO PRN ×2 (09:05→16:33)
[2019-12-10] MEDS: Calcium Carbonate 500 MG Tablet PO SCH (09:33)
[2019-12-10] MEDS: Warfarin 2.5 MG Tab PO SCH (16:33)
[2019-12-11] MEDS: Ampicillin 2 GM in Sodium Chloride 0.9% 100 ML IV SCH ×6 (00:15→20:17)
[2019-12-11] MEDS: Sodium Chloride 0.9% 10 ML Syringe FLUSH PRN ×6 (00:56→20:55)
[2019-12-11] MEDS: cefTRIAXone 2 GM Vial IVPUSH SCH ×2 (04:20→16:43)
[2019-12-11] MEDS: Pantoprazole 40 MG Tab.CR PO SCH (05:02)
[2019-12-11] MEDS: Menthol/Methyl Salicylate 85 GM Tube TOP SCH ×4 (09:10→20:11)
[2019-12-11] MEDS: Gabapentin 300 MG Cap PO SCH ×3 (09:14→20:11)
[2019-12-11] MEDS: Escitalopram 20 MG Tab PO SCH (09:14)
[2019-12-11] MEDS: Carvedilol 6.25 MG Tab PO SCH ×2 (09:14→17:22)
[2019-12-11] MEDS: Aspirin 81 MG Tab.Chew PO SCH (09:14)
[2019-12-11] MEDS: amLODIPine 10 MG Tab PO SCH (09:14)
[2019-12-11] MEDS: Calcium Carbonate 500 MG Tablet PO SCH (09:15)
[2019-12-11] MEDS: Acetaminophen 500 MG Tab PO SCH ×3 (09:15→20:11)
[2019-12-11] MEDS: traMADol 50 MG Tab PO PRN ×2 (09:16→18:36)
--- NOTE | 2019-12-11 10:36 | PCM.PN ---
- General Info Date of Service: 12/11/19 Admission Dx/Problem (Free Text): Regina's leg is about the same sometimes better with muscle rub and sometimes not. Has not tried warm packs to the thigh. No fevers or chills. No change in appetite. Still some drainage from chest tube site. Functional Status: Reports: Pain Controlled, Tolerating Diet, Ambulating, Urinating. Denies: New Symptoms - Patient Data Vitals - Most Recent: Last Vital Signs Temp 99.4 F 12/11/19 09:41 Pulse 70 12/11/19 09:41 Resp 16 12/11/19 09:41 BP 118/71 12/11/19 09:41 Pulse Ox 95 12/11/19 09:41 Weight - Most Recent: 144 lb I&O - Last 24 Hours: Intake & Output 12/10/19 12/11/19 12/11/19 22:59 06:59 14:59 Intake Total 200 200 100 Balance 200 200 100 Med Orders - Current: Current Medications Acetaminophen (Tylenol Extra Strength) 1,000 mg PO TID [facility] Last Admin: 12/11/19 09:15 Dose: 1,000 mg Documented by: Albuterol (Ventolin Hfa) 0 gm INH Q4H PRN PRN Reason: Shortness of Breath Amlodipine Besylate (Norvasc) 10 mg PO DAILY [facility] Last Admin: 12/11/19 09:14 Dose: 10 mg Documented by: Aspirin (Aspirin) 81 mg PO DAILY [facility] Last Admin: 12/11/19 09:14 Dose: 81 mg Documented by: Calcium Carbonate/Glycine (Oyster Shell Calcium) 500 mg PO DAILY [facility] Last Admin: 12/11/19 09:15 Dose: 500 mg Documented by: Carvedilol (Coreg) 6.25 mg PO BIDMEALS [facility] Last Admin: 12/11/19 09:14 Dose: 6.25 mg Documented by: Ceftriaxone Sodium (Rocephin) 2 gm IVPUSH Q12H [facility] Stop: 12/19/19 23:59 Last Admin: 12/11/19 04:20 Dose: 2 gm Documented by: Escitalopram Oxalate (Lexapro) 20 mg PO DAILY [facility] Last Admin: 12/11/19 09:14 Dose: 20 mg Documented by: Fluticasone Propionate (Flonase) 0 gm NASBOTH BID PRN PRN Reason: Allergies Gabapentin (Neurontin) 300 mg PO TID [facility] Last Admin: 12/11/19 09:14 Dose: 300 mg Documented by: Heparin Sodium (Porcine) (Heparin Lock Flush 100 Units/Ml) 300 units FLUSH Q4H [facility] Last Admin: 12/11/19 09:50 Dose: 300 units Documented by: Ampicillin Sodium 2 gm/ Sodium (Chloride) 100 mls @ 200 mls/hr IV Q4H [facility] Stop: 12/19/19 23:59 Last Admin: 12/11/19 09:11 Dose: 200 mls/hr Documented by: Lactulose (Cephulac) 20 gm PO DAILY PRN PRN Reason: Constipation Loratadine (Claritin) 10 mg PO DAILY PRN PRN Reason: Allergies Methyl Salicylate (Icy Hot Cream) 0 gm TOP QID [facility] Last Admin: 12/11/19 09:10 Dose: 1 applic Documented by: Pantoprazole Sodium (Protonix) 40 mg PO DAILY@0600 [facility] Last Admin: 12/11/19 05:02 Dose: 40 mg Documented by: Sodium Chloride (Saline Flush) 10 ml FLUSH ASDIRECTED PRN PRN Reason: Keep Vein Open Last Admin: 12/11/19 05:10 Dose: 10 ml Documented by: Tramadol HCl (Ultram) 50 mg PO Q6H PRN PRN Reason: Breakthrough Pain Last Admin: 12/11/19 09:16 Dose: 50 mg Documented by: Warfarin Sodium (Coumadin Sliding Scale) 1 each PO ASDIRECTED [facility] Warfarin Sodium (Coumadin) 2.5 mg PO DAILY@1600 [facility] Last Admin: 12/10/19 16:33 Dose: 2.5 mg Documented by: Discontinued Medications Acetaminophen (Tylenol Arthritis Pain) 650 mg PO BEDTIME [facility] Gabapentin (Neurontin) 200 mg PO TID [facility] Last Admin: 12/01/19 13:43 Dose: 200 mg Documented by: Gabapentin (Neurontin) Confirm Administered Dose 100 mg .ROUTE .STK-MED ONE Stop: 11/30/19 20:38 Last Admin: 11/30/19 21:08 Dose: Not Given Documented by: Tramadol HCl (Ultram) 100 mg PO Q8H PRN PRN Reason: Pain Last Admin: 12/01/19 05:32 Dose: 100 mg Documented by: Warfarin Sodium (Coumadin) 1.25 mg PO 1600 [facility] Stop: 11/21/19 16:01 Last Admin: 11/21/19 16:30 Dose: 1.25 mg Documented by: Warfarin Sodium (Coumadin) 2.5 mg PO MoWeFr@1600 [facility] Last Admin: 11/24/19 16:44 Dose: 2.5 mg Documented by: Warfarin Sodium (Coumadin) 1.25 mg PO SuTuThSa@1600 [facility] Last Admin: 11/25/19 17:04 Dose: 1.25 mg Documented by: Warfarin Sodium (Coumadin) 3.75 mg PO ONETIME ONE Stop: 11/26/19 16:01 Last Admin: 11/26/19 15:31 Dose: 3.75 mg Documented by: Warfarin Sodium (Coumadin) 2.5 mg PO MoWeFrSa@1600 [facility] Last Admin: 11/29/19 17:05 Dose: 2.5 mg Documented by: Warfarin Sodium (Coumadin) 1.25 mg PO SuTuTh@1600 [facility] Last Admin: 11/28/19 15:41 Dose: 1.25 mg Documented by: - Exam General: Alert, Oriented, Cooperative, No Acute Distress Lungs: Clear to Auscultation, Normal Respiratory Effort Cardiovascular: Regular Rate, Regular Rhythm GI/Abdominal Exam: Normal Bowel Sounds, Soft, Non-Tender, No Distention Wound/Incisions: Healing Well (good granulation tissue seen), Dressing Dry and Intact, Drainage (minimal) Sepsis Event Note - Evaluation Sepsis Screening Result: No Definite Risk - Focused Exam Vital Signs: Vital Signs Temp Pulse Pulse Resp BP BP Pulse Ox 12/11/19 09:41 99.4 F 70 16 118/71 95 12/11/19 09:14 70 118/71 12/11/19 05:38 98.1 F 74 16 103/63 97 Date Exam was Performed: 12/11/19 Time Exam was Performed: 10:32 - Problem List & Annotations (1) Right thigh pain SNOMED Code(s): 09673470, 092776388 Code(s): M79.651 - PAIN IN RIGHT THIGH Status: Acute Current Visit: Yes (2) Endocarditis SNOMED Code(s): 05277821 Code(s): I38 - ENDOCARDITIS, VALVE UNSPECIFIED Status: Acute Current Visit: Yes Qualifiers: Endocarditis type: infective Infective endocarditis organism: bacterial Annotation/Comment:: ID appt on 12/14, Rocephin & Ampicillin through December 18. Cardiothoracic appt was moved from December 05 to December 22. (3) Anemia SNOMED Code(s): 638462562 Code(s): D64.9 - ANEMIA, UNSPECIFIED Status: Acute Current Visit: Yes Qualifiers: Anemia type: unspecified type Qualified Code(s): D64.9 - Anemia, unspecified (4) HTN (hypertension) SNOMED Code(s): 67213640 Code(s): I10 - ESSENTIAL (PRIMARY) HYPERTENSION Status: Chronic Current Visit: No Qualifiers: Hypertension type: essential hypertension Qualified Code(s): I10 - Essential (primary) hypertension (5) H/O chest tube placement SNOMED Code(s): 413712673, 785657695 Code(s): Z98.890 - OTHER SPECIFIED POSTPROCEDURAL STATES Status: Chronic Current Visit: Yes - Problem List Review Problem List Initiated/Reviewed/Updated: Yes - Plan Plan:: 1. Iron panel within normal range so no supplements required. 2. INR within therapeutic range. 3. Will try Muscle rub on her right thigh qid, add warm packs to right thigh qid prn. 4. Incision healing well, sutures not ready to come out at this time. 5. Care conference Friday at 1330. ID appt on December 14, through December 18.
[2019-12-11] MEDS: Warfarin 2.5 MG Tab PO SCH (16:42)
[2019-12-12] MEDS: Ampicillin 2 GM in Sodium Chloride 0.9% 100 ML IV SCH ×6 (00:31→20:39)
[2019-12-12] MEDS: Sodium Chloride 0.9% 10 ML Syringe FLUSH PRN ×10 (01:05→21:12)
[2019-12-12] MEDS: cefTRIAXone 2 GM Vial IVPUSH SCH ×2 (04:29→16:49)
[2019-12-12] MEDS: Pantoprazole 40 MG Tab.CR PO SCH (05:09)
[2019-12-12] MEDS: amLODIPine 10 MG Tab PO SCH (08:51)
[2019-12-12] MEDS: Carvedilol 6.25 MG Tab PO SCH ×2 (08:51→17:40)
[2019-12-12] MEDS: Aspirin 81 MG Tab.Chew PO SCH (08:51)
[2019-12-12] MEDS: Escitalopram 20 MG Tab PO SCH (08:51)
[2019-12-12] MEDS: traMADol 50 MG Tab PO PRN ×2 (08:52→16:45)
[2019-12-12] MEDS: Acetaminophen 500 MG Tab PO SCH ×3 (08:52→20:42)
[2019-12-12] MEDS: Calcium Carbonate 500 MG Tablet PO SCH (08:52)
[2019-12-12] MEDS: Gabapentin 300 MG Cap PO SCH ×3 (08:52→20:42)
[2019-12-12] MEDS: Menthol/Methyl Salicylate 85 GM Tube TOP SCH ×4 (08:53→20:42)
[2019-12-12] MEDS: Warfarin 2.5 MG Tab PO SCH (16:45)
[2019-12-13] MEDS: Ampicillin 2 GM in Sodium Chloride 0.9% 100 ML IV SCH ×6 (00:32→20:26)
[2019-12-13] MEDS: Sodium Chloride 0.9% 10 ML Syringe FLUSH PRN ×10 (01:11→21:04)
[2019-12-13] MEDS: cefTRIAXone 2 GM Vial IVPUSH SCH ×2 (04:50→16:36)
[2019-12-13] MEDS: Pantoprazole 40 MG Tab.CR PO SCH (05:14)
[2019-12-13] MEDS: Carvedilol 6.25 MG Tab PO SCH ×2 (09:20→17:59)
[2019-12-13] MEDS: Acetaminophen 500 MG Tab PO SCH ×3 (09:21→20:25)
[2019-12-13] MEDS: Gabapentin 300 MG Cap PO SCH ×3 (09:21→20:25)
[2019-12-13] MEDS: Menthol/Methyl Salicylate 85 GM Tube TOP SCH ×4 (09:21→20:25)
[2019-12-13] MEDS: amLODIPine 10 MG Tab PO SCH (09:21)
[2019-12-13] MEDS: Calcium Carbonate 500 MG Tablet PO SCH (09:21)
[2019-12-13] MEDS: Escitalopram 20 MG Tab PO SCH (09:21)
[2019-12-13] MEDS: Aspirin 81 MG Tab.Chew PO SCH (09:21)
[2019-12-13] MEDS: traMADol 50 MG Tab PO PRN ×2 (09:25→16:50)
[2019-12-13] MEDS: Warfarin 2.5 MG Tab PO SCH (16:35)
[2019-12-14] MEDS: Sodium Chloride 0.9% 10 ML Syringe FLUSH PRN ×11 (00:50→21:35)
[2019-12-14] MEDS: Ampicillin 2 GM in Sodium Chloride 0.9% 100 ML IV SCH ×6 (00:51→20:54)
[2019-12-14] MEDS: cefTRIAXone 2 GM Vial IVPUSH SCH ×2 (04:39→16:58)
[2019-12-14] MEDS: Pantoprazole 40 MG Tab.CR PO SCH (05:24)
[2019-12-14] MEDS: Carvedilol 6.25 MG Tab PO SCH ×2 (08:28→17:13)
[2019-12-14] MEDS: Aspirin 81 MG Tab.Chew PO SCH (08:28)
[2019-12-14] MEDS: Menthol/Methyl Salicylate 85 GM Tube TOP SCH ×4 (08:29→20:54)
[2019-12-14] MEDS: amLODIPine 10 MG Tab PO SCH (08:29)
[2019-12-14] MEDS: Escitalopram 20 MG Tab PO SCH (08:29)
[2019-12-14] MEDS: Calcium Carbonate 500 MG Tablet PO SCH (08:30)
[2019-12-14] MEDS: Acetaminophen 500 MG Tab PO SCH ×3 (08:30→21:04)
[2019-12-14] MEDS: Gabapentin 300 MG Cap PO SCH ×3 (09:08→21:04)
[2019-12-14] MEDS: traMADol 50 MG Tab PO PRN ×2 (09:13→17:12)
[2019-12-14] MEDS: Warfarin 2.5 MG Tab PO SCH (16:57)
[2019-12-15] MEDS: Ampicillin 2 GM in Sodium Chloride 0.9% 100 ML IV SCH ×7 (01:31→20:10)
[2019-12-15] MEDS: Sodium Chloride 0.9% 10 ML Syringe FLUSH PRN ×10 (01:32→20:29)
[2019-12-15] MEDS: traMADol 50 MG Tab PO PRN ×3 (01:43→17:27)
[2019-12-15] MEDS: cefTRIAXone 2 GM Vial IVPUSH SCH ×2 (05:07→17:10)
[2019-12-15] MEDS: Pantoprazole 40 MG Tab.CR PO SCH (05:30)
[2019-12-15] MEDS: Aspirin 81 MG Tab.Chew PO SCH (08:00)
[2019-12-15] MEDS: Carvedilol 6.25 MG Tab PO SCH ×2 (08:00→17:12)
[2019-12-15] MEDS: Escitalopram 20 MG Tab PO SCH (08:00)
[2019-12-15] MEDS: Acetaminophen 500 MG Tab PO SCH ×3 (08:01→20:16)
[2019-12-15] MEDS: amLODIPine 10 MG Tab PO SCH (08:01)
[2019-12-15] MEDS: Gabapentin 300 MG Cap PO SCH ×3 (08:01→20:15)
[2019-12-15] MEDS: Calcium Carbonate 500 MG Tablet PO SCH (08:01)
[2019-12-15] MEDS: Menthol/Methyl Salicylate 85 GM Tube TOP SCH ×4 (08:04→20:16)
[2019-12-15] MEDS: Warfarin 2.5 MG Tab PO SCH (17:10)
[2019-12-16] MEDS: Ampicillin 2 GM in Sodium Chloride 0.9% 100 ML IV SCH ×6 (01:03→20:58)
[2019-12-16] MEDS: Sodium Chloride 0.9% 10 ML Syringe FLUSH PRN ×8 (01:05→21:39)
[2019-12-16] MEDS: cefTRIAXone 2 GM Vial IVPUSH SCH ×2 (04:49→16:45)
[2019-12-16] MEDS: Pantoprazole 40 MG Tab.CR PO SCH (04:59)
[2019-12-16] MEDS: Carvedilol 6.25 MG Tab PO SCH ×2 (08:59→17:18)
[2019-12-16] MEDS: Acetaminophen 500 MG Tab PO SCH ×3 (09:02→21:12)
[2019-12-16] MEDS: Calcium Carbonate 500 MG Tablet PO SCH (09:02)
[2019-12-16] MEDS: Escitalopram 20 MG Tab PO SCH (09:02)
[2019-12-16] MEDS: amLODIPine 10 MG Tab PO SCH (09:02)
[2019-12-16] MEDS: Aspirin 81 MG Tab.Chew PO SCH (09:02)
[2019-12-16] MEDS: Menthol/Methyl Salicylate 85 GM Tube TOP SCH ×4 (09:05→21:11)
[2019-12-16] MEDS: traMADol 50 MG Tab PO PRN ×2 (09:05→17:16)
[2019-12-16] MEDS: Gabapentin 300 MG Cap PO SCH ×3 (09:06→21:14)
--- NOTE | 2019-12-16 16:13 | PCM.PN ---
- General Info Date of Service: 12/16/19 Admission Dx/Problem (Free Text): Slept well, feeling pretty good, appt yesterday went well, has antibiotics through December 19, with follow up Echo with cardiology December 29, from orders PICC is to remain in until they get the echo done. Still some drainage from chest wall incision. Functional Status: Reports: Pain Controlled, Tolerating Diet, Ambulating, Urinating - Patient Data Vitals - Most Recent: Last Vital Signs Temp 98.6 F 12/15/19 08:00 Pulse 76 12/16/19 08:59 Resp 18 12/15/19 08:00 BP 122/75 12/16/19 09:02 Pulse Ox 96 12/15/19 08:00 Weight - Most Recent: 144 lb I&O - Last 24 Hours: Intake & Output 12/16/19 12/16/19 12/16/19 06:59 14:59 22:59 Intake Total 200 Balance 200 Med Orders - Current: Current Medications Acetaminophen (Tylenol Extra Strength) 1,000 mg PO TID [facility] Last Admin: 12/16/19 13:32 Dose: 1,000 mg Documented by: Albuterol (Ventolin Hfa) 0 gm INH Q4H PRN PRN Reason: Shortness of Breath Amlodipine Besylate (Norvasc) 10 mg PO DAILY [facility] Last Admin: 12/16/19 09:02 Dose: 10 mg Documented by: Aspirin (Aspirin) 81 mg PO DAILY [facility] Last Admin: 12/16/19 09:02 Dose: 81 mg Documented by: Calcium Carbonate/Glycine (Oyster Shell Calcium) 500 mg PO DAILY [facility] Last Admin: 12/16/19 09:02 Dose: 500 mg Documented by: Carvedilol (Coreg) 6.25 mg PO BIDMEALS [facility] Last Admin: 12/16/19 08:59 Dose: 6.25 mg Documented by: Ceftriaxone Sodium (Rocephin) 2 gm IVPUSH Q12H [facility] Stop: 12/20/19 23:59 Last Admin: 12/16/19 04:49 Dose: 2 gm Documented by: Escitalopram Oxalate (Lexapro) 20 mg PO DAILY [facility] Last Admin: 12/16/19 09:02 Dose: 20 mg Documented by: Fluticasone Propionate (Flonase) 0 gm NASBOTH BID PRN PRN Reason: Allergies Gabapentin (Neurontin) 300 mg PO TID [facility] Last Admin: 12/16/19 13:32 Dose: 300 mg Documented by: Heparin Sodium (Porcine) (Heparin Lock Flush 100 Units/Ml) 300 units FLUSH Q4H [facility] Last Admin: 12/16/19 13:33 Dose: 300 units Documented by: Ampicillin Sodium 2 gm/ Sodium (Chloride) 100 mls @ 200 mls/hr IV Q4H [facility] Stop: 12/20/19 23:59 Last Admin: 12/16/19 13:31 Dose: 200 mls/hr Documented by: Lactulose (Cephulac) 20 gm PO DAILY PRN PRN Reason: Constipation Loratadine (Claritin) 10 mg PO DAILY PRN PRN Reason: Allergies Methyl Salicylate (Icy Hot Cream) 0 gm TOP QID [facility] Last Admin: 12/16/19 13:33 Dose: 1 applic Documented by: Pantoprazole Sodium (Protonix) 40 mg PO DAILY@0600 [facility] Last Admin: 12/16/19 04:59 Dose: 40 mg Documented by: Sodium Chloride (Saline Flush) 10 ml FLUSH ASDIRECTED PRN PRN Reason: Keep Vein Open Last Admin: 12/16/19 13:34 Dose: 10 ml Documented by: Tramadol HCl (Ultram) 50 mg PO Q6H PRN PRN Reason: Breakthrough Pain Last Admin: 12/16/19 09:05 Dose: 50 mg Documented by: Warfarin Sodium (Coumadin Sliding Scale) 1 each PO ASDIRECTED [facility] Warfarin Sodium (Coumadin) 2.5 mg PO DAILY@1600 [facility] Last Admin: 12/15/19 17:10 Dose: 2.5 mg Documented by: Discontinued Medications Acetaminophen (Tylenol Arthritis Pain) 650 mg PO BEDTIME [facility] Gabapentin (Neurontin) 200 mg PO TID [facility] Last Admin: 12/01/19 13:43 Dose: 200 mg Documented by: Gabapentin (Neurontin) Confirm Administered Dose 100 mg .ROUTE .STK-MED ONE Stop: 11/30/19 20:38 Last Admin: 11/30/19 21:08 Dose: Not Given Documented by: Tramadol HCl (Ultram) 100 mg PO Q8H PRN PRN Reason: Pain Last Admin: 12/01/19 05:32 Dose: 100 mg Documented by: Warfarin Sodium (Coumadin) 1.25 mg PO 1600 [facility] Stop: 11/21/19 16:01 Last Admin: 11/21/19 16:30 Dose: 1.25 mg Documented by: Warfarin Sodium (Coumadin) 2.5 mg PO MoWeFr@1600 [facility] Last Admin: 11/24/19 16:44 Dose: 2.5 mg Documented by: Warfarin Sodium (Coumadin) 1.25 mg PO SuTuThSa@1600 [facility] Last Admin: 11/25/19 17:04 Dose: 1.25 mg Documented by: Warfarin Sodium (Coumadin) 3.75 mg PO ONETIME ONE Stop: 11/26/19 16:01 Last Admin: 11/26/19 15:31 Dose: 3.75 mg Documented by: Warfarin Sodium (Coumadin) 2.5 mg PO MoWeFrSa@1600 [facility] Last Admin: 11/29/19 17:05 Dose: 2.5 mg Documented by: Warfarin Sodium (Coumadin) 1.25 mg PO SuTuTh@1600 [facility] Last Admin: 11/28/19 15:41 Dose: 1.25 mg Documented by: - Exam General: Alert, Oriented, Cooperative, No Acute Distress Lungs: Clear to Auscultation Cardiovascular: Regular Rate, Regular Rhythm GI/Abdominal Exam: Normal Bowel Sounds, Soft, Non-Tender, No Distention Wound/Incisions: Healing Well (still having drainage, good granulation tissue but some gaping at wound edge. ), Drainage Sepsis Event Note - Evaluation Sepsis Screening Result: No Definite Risk - Focused Exam Vital Signs: Vital Signs Pulse BP 12/16/19 09:02 122/75 12/16/19 08:59 76 122/75 Date Exam was Performed: 12/16/19 Time Exam was Performed: 16:09 - Problem List & Annotations (1) Right thigh pain SNOMED Code(s): 94981347, 555425676 Code(s): M79.651 - PAIN IN RIGHT THIGH Status: Acute Current Visit: Yes (2) Endocarditis SNOMED Code(s): 32984905 Code(s): I38 - ENDOCARDITIS, VALVE UNSPECIFIED Status: Acute Current Visit: Yes Qualifiers: Endocarditis type: infective Infective endocarditis organism: bacterial Annotation/Comment:: ID appt on 12/14, Rocephin & Ampicillin through December 18. Cardiothoracic appt was moved from December 05 to December 22. (3) Anemia SNOMED Code(s): 089269492 Code(s): D64.9 - ANEMIA, UNSPECIFIED Status: Acute Current Visit: Yes Qualifiers: Anemia type: unspecified type Qualified Code(s): D64.9 - Anemia, unspecified (4) HTN (hypertension) SNOMED Code(s): 42162986 Code(s): I10 - ESSENTIAL (PRIMARY) HYPERTENSION Status: Chronic Current Visit: No Qualifiers: Hypertension type: essential hypertension Qualified Code(s): I10 - Essential (primary) hypertension (5) H/O chest tube placement SNOMED Code(s): 353919814, 918205243 Code(s): Z98.890 - OTHER SPECIFIED POSTPROCEDURAL STATES Status: Chronic Current Visit: Yes - Problem List Review Problem List Initiated/Reviewed/Updated: Yes - Plan Plan:: 1. INR within therapeutic range. 2. Incision healing well, sutures not ready to come out at this time. 3. Care conference Friday at 1330. antibiotics through December 19.
[2019-12-16] MEDS: Warfarin 2.5 MG Tab PO SCH (16:44)
[2019-12-17] MEDS: Sodium Chloride 0.9% 10 ML Syringe FLUSH PRN ×11 (01:00→21:49)
[2019-12-17] MEDS: Ampicillin 2 GM in Sodium Chloride 0.9% 100 ML IV SCH ×6 (01:01→21:02)
[2019-12-17] MEDS: cefTRIAXone 2 GM Vial IVPUSH SCH ×2 (05:05→16:54)
[2019-12-17] MEDS: Pantoprazole 40 MG Tab.CR PO SCH (05:47)
[2019-12-17] MEDS: Carvedilol 6.25 MG Tab PO SCH ×2 (08:59→17:03)
[2019-12-17] MEDS: Gabapentin 300 MG Cap PO SCH ×3 (09:10→21:09)
[2019-12-17] MEDS: traMADol 50 MG Tab PO PRN ×2 (09:10→17:02)
[2019-12-17] MEDS: Aspirin 81 MG Tab.Chew PO SCH (09:12)
[2019-12-17] MEDS: Menthol/Methyl Salicylate 85 GM Tube TOP SCH ×4 (09:13→21:09)
[2019-12-17] MEDS: amLODIPine 10 MG Tab PO SCH (09:13)
[2019-12-17] MEDS: Acetaminophen 500 MG Tab PO SCH ×3 (09:14→21:09)
[2019-12-17] MEDS: Escitalopram 20 MG Tab PO SCH (09:14)
[2019-12-17] MEDS: Calcium Carbonate 500 MG Tablet PO SCH (09:14)
[2019-12-17] MEDS: Warfarin 2.5 MG Tab PO SCH (16:54)
[2019-12-18] MEDS: Sodium Chloride 0.9% 10 ML Syringe FLUSH PRN ×10 (00:58→21:45)
[2019-12-18] MEDS: Ampicillin 2 GM in Sodium Chloride 0.9% 100 ML IV SCH ×6 (00:59→21:03)
[2019-12-18] MEDS: cefTRIAXone 2 GM Vial IVPUSH SCH ×2 (04:56→16:35)
--- NOTE | 2019-12-18 05:12 | PN ---
DATE SEEN: 12/17/2019 HISTORY OF PRESENT ILLNESS: Hetal Berman is a 64-year-old, female, a long-term treatment for endocarditis and splenic abscess. Medications on board, noted and appropriate. Presently on ampicillin 2 g q.4 hours and warfarin therapy for prosthetic valve, doing well. Pain is controlled. Has some sutures in the left flank, previous drain site. Doing well. Mood has been stable and appropriate. Plans for antibiotics until 12/20/2019. PHYSICAL EXAMINATION: VITAL SIGNS: 36.9, 79, 120/70, 16, and 97%. GENERAL: Comfortable as always. NECK: Benign. Thyroid small. CHEST: Clear in all lung rosas. HEART: No ectopy or murmur. ABDOMEN: Benign. Surgical site sutures in place, left mid lateral back without complaint. ASSESSMENT: Endocarditis and splenic abscess. PLAN: We will remove sutures. Continue present therapy and care. /[id number] 1216 DAMARIS/OFELIA
[2019-12-18] MEDS: Pantoprazole 40 MG Tab.CR PO SCH (05:41)
[2019-12-18] MEDS: Carvedilol 6.25 MG Tab PO SCH ×2 (08:55→16:59)
[2019-12-18] MEDS: Gabapentin 300 MG Cap PO SCH ×3 (08:55→21:13)
[2019-12-18] MEDS: traMADol 50 MG Tab PO PRN ×2 (08:55→16:38)
[2019-12-18] MEDS: amLODIPine 10 MG Tab PO SCH (08:56)
[2019-12-18] MEDS: Aspirin 81 MG Tab.Chew PO SCH (08:56)
[2019-12-18] MEDS: Calcium Carbonate 500 MG Tablet PO SCH (08:56)
[2019-12-18] MEDS: Acetaminophen 500 MG Tab PO SCH ×3 (08:57→21:13)
[2019-12-18] MEDS: Escitalopram 20 MG Tab PO SCH (08:57)
[2019-12-18] MEDS: Menthol/Methyl Salicylate 85 GM Tube TOP SCH ×4 (09:19→22:55)
--- NOTE | 2019-12-18 12:38 | PN ---
DATE SEEN: 12/18/2019 SUBJECTIVE: Tashia Berman is a 64-year-old female on a 1 month course of IV antibiotics for endocarditis of aortic diana, replaced aortic valve, and splenic abscess. Counting down to 12/20/2019. Suture removed from left flank drain site. These will be reviewed today. Otherwise doing well. Pain is controlled and no complicating issue. OBJECTIVE: CHEST: Clear. HEART: Regular. ABDOMEN: Benign. ASSESSMENT: 1. Endocarditis. 2. Septic spleen. PLAN: On board with care and therapy. No laboratory studies required. /[id number] 1200 DAMARIS/OFELIA
[2019-12-18] MEDS: Warfarin 2.5 MG Tab PO SCH (16:34)
[2019-12-19] MEDS: Sodium Chloride 0.9% 10 ML Syringe FLUSH PRN ×12 (01:02→21:44)
[2019-12-19] MEDS: Ampicillin 2 GM in Sodium Chloride 0.9% 100 ML IV SCH ×6 (01:02→21:08)
[2019-12-19] MEDS: cefTRIAXone 2 GM Vial IVPUSH SCH ×2 (05:01→16:57)
[2019-12-19] MEDS: Pantoprazole 40 MG Tab.CR PO SCH (06:31)
[2019-12-19] MEDS: Aspirin 81 MG Tab.Chew PO SCH (09:21)
[2019-12-19] MEDS: Carvedilol 6.25 MG Tab PO SCH ×2 (09:21→17:33)
[2019-12-19] MEDS: Escitalopram 20 MG Tab PO SCH (09:22)
[2019-12-19] MEDS: Acetaminophen 500 MG Tab PO SCH ×3 (09:22→21:40)
[2019-12-19] MEDS: amLODIPine 10 MG Tab PO SCH (09:22)
[2019-12-19] MEDS: Calcium Carbonate 500 MG Tablet PO SCH (09:22)
[2019-12-19] MEDS: Menthol/Methyl Salicylate 85 GM Tube TOP SCH ×4 (09:23→21:13)
[2019-12-19] MEDS: Gabapentin 300 MG Cap PO SCH ×3 (09:26→21:39)
--- NOTE | 2019-12-19 11:43 | PN ---
DATE SEEN: 12/19/2019 HISTORY OF PRESENT ILLNESS: Hetal Berman is a 64-year-old female, long-term rehab intervention. On full month of IV antibiotics for endocarditis and splenic abscess. Ready for discharge early this week. She voices no particular complaints or concerns. Pain has been controlled. LABORATORY STUDIES: Last on 12/13/2019, white count 4200, hemoglobin 10.8, hematocrit 33.8. Coag studies have been satisfactory on 12/17/2019. INR 2.51. OBJECTIVE: VITAL SIGNS: 36.6 degrees Fahrenheit, 65 kg, 115/68, 16 is the respiration, 96%. GENERAL: In good spirits. NECK: Benign. Thyroid small. CHEST: Clear in all lung rosas. HEART: Regular rate and rhythm with a grade 2/6 systolic ejection murmur at aortic root. EXTREMITIES: Sternotomy scar well healed. PICC line right arm intact. ASSESSMENT: Complicated endocarditis, splenic abscess. PLAN: Wound was also examined, edges well granulated and accordingly right flank, discharge planning in place. /[id number] 1109 /OFELIA
[2019-12-19] MEDS: Warfarin 2.5 MG Tab PO SCH (16:09)
[2019-12-19] MEDS: traMADol 50 MG Tab PO PRN (17:33)
[2019-12-20] MEDS: Ampicillin 2 GM in Sodium Chloride 0.9% 100 ML IV SCH ×6 (00:57→20:07)
[2019-12-20] MEDS: Sodium Chloride 0.9% 10 ML Syringe FLUSH PRN ×8 (01:08→20:10)
[2019-12-20] MEDS: cefTRIAXone 2 GM Vial IVPUSH SCH ×2 (04:53→15:55)
[2019-12-20] MEDS: Pantoprazole 40 MG Tab.CR PO SCH (06:41)
[2019-12-20] MEDS: Carvedilol 6.25 MG Tab PO SCH ×2 (08:57→17:06)
[2019-12-20] MEDS: Gabapentin 300 MG Cap PO SCH ×3 (08:58→20:18)
[2019-12-20] MEDS: amLODIPine 10 MG Tab PO SCH (09:00)
[2019-12-20] MEDS: Aspirin 81 MG Tab.Chew PO SCH (09:00)
[2019-12-20] MEDS: Calcium Carbonate 500 MG Tablet PO SCH (09:01)
[2019-12-20] MEDS: Acetaminophen 500 MG Tab PO SCH ×3 (09:01→20:18)
[2019-12-20] MEDS: Escitalopram 20 MG Tab PO SCH (09:01)
[2019-12-20] MEDS: Menthol/Methyl Salicylate 85 GM Tube TOP SCH ×4 (09:02→20:19)
--- NOTE | 2019-12-20 14:12 | PN ---
DATE SEEN: 12/20/2019 SUBJECTIVE: Tashia Berman is a 64-year-old female completing a long- term course of IV antibiotics. Had a septic endocarditis and septic spleen. Completing her antibiotic therapy. Doing well. No particular complaints. Up ambulating and doing well with therapy. OBJECTIVE: VITAL SIGNS: 110/73, pulse 74, respirations 16. GENERAL: Appears comfortable. Wakeful and appropriate. NECK: Benign. CHEST: Clear in all lung rosas. HEART: No ectopy or murmur. ABDOMEN: Benign. ASSESSMENT: 1. Endocarditis. 2. Septic spleen. PLAN: Plan discharge this evening likely, eleanor. /[id number] 1133 DAMARIS/OFELIA
[2019-12-20] MEDS: Warfarin 2.5 MG Tab PO SCH (15:54)
[2019-12-20] MEDS: traMADol 50 MG Tab PO PRN (16:08)
--- NOTE | 2019-12-21 03:35 | DISCH ---
DISCHARGE DATE: 12/20/2019 DISCHARGE DIAGNOSES: 1. Endocarditis of prosthetic aortic valve. 2. Splenic abscess. 3. Complicated cardiopulmonary, cardiothoracic surgery. HISTORY OF PRESENT ILLNESS: Tashia Berman is a delightful 64-year-old female who was admitted from [facility]. Presents with a long-term antibiotic need for endocarditis of aortic valve, replaced; splenic abscess. She had an uneventful hospital course, was given IV Rocephin 2 g q.12 hours. Was active in therapy, medications, and care. Intravenous central line was accessed and without complicating issue. No real diagnostic studies were performed at consequence. She completed a 1 month course of therapy today. Will be planned discharge home tonight, evening of 12/19 or morning of 12/20. Discharge medications and care will be appropriately signed at the time of discharge. SURGICAL PROCEDURES: None. CONSULTATIONS: None. We will continue to maintain her PICC line with availability to do heparin 300 units q.12 hours for the next 10 days duration. The patient was in good health at the time of discharge. Thirty minute discharge planning care and intervention. /[id number] DAMARIS/OFELIA
== END 2019-12-20 21:05 | disposition home or self-care (01) | DRG 949 ==
LOC: FB.MS 15:05
PROVIDERS: ADMIT Family Medicine; ATTEND Family Medicine
DX: T82.6XXD Infection and inflammatory reaction due to cardiac valve prosthesis, subsequent encounter (principal); I38 Endocarditis, valve unspecified; D73.3 Abscess of spleen; H91.90 Unspecified hearing loss, unspecified ear; H54.7 Unspecified visual loss; I48.91 Unspecified atrial fibrillation; K21.9 Gastro-esophageal reflux disease without esophagitis; G47.00 Insomnia, unspecified; F41.9 Anxiety disorder, unspecified; F32.9 Major depressive disorder, single episode, unspecified; E66.9 Obesity, unspecified; Z96.641 Presence of right artificial hip joint; M79.672 Pain in left foot; D64.9 Anemia, unspecified; I10 Essential (primary) hypertension; Z95.2 Presence of prosthetic heart valve; Z98.51 Tubal ligation status; Z91.041 Radiographic dye allergy status; Z79.82 Long term (current) use of aspirin; Z79.01 Long term (current) use of anticoagulants; Z79.899 Other long term (current) drug therapy; Z86.718 Personal history of other venous thrombosis and embolism; Z86.010 Personal history of colon polyps; Z87.891 Personal history of nicotine dependence; Z68.30 Body mass index [BMI] 30.0-30.9, adult
CPT/HCPCS: 36415; 80053; 82565; 83540; 83550; 84460; 85025; 85610; 94150; 97110-GO; 97110-GP; 97116-GP; 97161-GP; 97165-GO; 97530-GO; 97530-GP; 97535-GO; A9270-GY; J0290; J0696; J1642; J7050

== ENCOUNTER 2020-03-31 09:25 | Inpatient (IN) | payer OTHER, MEDICARE ==
[2020-03-31] MEDS ORDERED: Sodium Chloride 0.9% 250 ML IV SCH (14:00)
[2020-03-31] MEDS ORDERED: Ampicillin 2 GM Vial IV SCH (14:00)
[2020-03-31] MEDS: Sodium Chloride 0.9% 10 ML Syringe FLUSH PRN ×4 (14:09→22:45)
[2020-03-31] MEDS: Ampicillin 2 GM in Sodium Chloride 0.9% 100 ML IV SCH ×3 (14:09→22:07)
[2020-03-31] MEDS: Gabapentin 300 MG Cap PO SCH ×2 (14:13→20:59)
--- NOTE | 2020-03-31 14:28 | PCM.HP.2 ---
H&P History of Present Illness - General Date of Service: 03/31/20 Admit Problem/Dx: Admission Diagnosis/Problem Admission Diagnosis/Problem Bacteremia due to Enterococcus Source of Information: Patient, Old Records, Provider - History of Present Illness Initial Comments - Free Text/Narative: Regina is 64 yr old female who had acute right parietotemporal intraparenchymal hematoma with intraventricular extension on Mar 12, she had cerebral edema with brain compression with 8mm right to left midline shift. Her INR on 03/12 was 2.0. Had decompressive craniectomy and evacuation of hematoma, continues to have persistent right side headache. Had Tylenol this morning and has not had any other pain medications prior to arrival. She was also found to have enterococcus bacteremia, will have 6 weeks of IV ampicillin every 4 hours and IV Rocephin bid start date 03/20, last day of antibiotics 04/30/20, Infectious disease ordered weekly CBC, Creatinine, ALT on Friday, fax labs to them. She also had some vaginal burning during acute stay, was started on Fluconazole, received 2 doses in [place], due for her last dose this evening. Diastolic CHF, on low dose Lasix. Discharged with no anticoagulation per [place], seeing cardiology in 3 months for watchman device placement. Neurology follow up appointment pending, tentative MRI brain for May 17. Left homonymous hemianopsia. - Related Data Allergies/Adverse Reactions: Allergies Allergy/AdvReac Type Severity Reaction Status Date / Time X-RAY DDYE Allergy Severe Hives Uncoded 05/12/19 08:55 Home Medications: Home Meds Escitalopram [Lexapro] 20 mg PO DAILY 01/11/19 [History] Pantoprazole [ProTONIX] 40 mg PO DAILY@0600 01/11/19 [History] Ampicillin 2 gm IV Q4H 11/19/19 [History] Gabapentin [Neurontin] 300 mg PO TID 11/19/19 [History] carvediloL [Coreg] 6.25 mg PO BIDMEALS 11/19/19 [History] cefTRIAXone [Rocephin] 2 gm IV Q12H 11/19/19 [History] Acetaminophen/HYDROcodone [[place] 325-5 MG] 1 - 2 tab PO Q6H PRN 03/31/20 [History] Furosemide [Lasix] 20 mg PO DAILY 03/31/20 [History] Heparin Sodium,Porcine/PF [Heparin 500 Unit/5 ml (100/ml)] 300 units FLUSH ASDIRECTED 03/31/20 [History] Melatonin/Pyridoxine HCl (B6) [Melatonin 3 mg Tablet] 6 mg PO BEDTIME 03/31/20 [History] Sennosides/Docusate Sodium [Senna-S] 1 tab PO BID 03/31/20 [History] Sodium Chloride 0.9% [Saline Flush] 10 ml FLUSH ASDIRECTED PRN 03/31/20 [History] amLODIPine [Norvasc] 5 mg PO DAILY 03/31/20 [History] Past Medical History HEENT History: Reports: Allergic Rhinitis, Hard of Hearing, Impaired Vision, Other (See Below) Other HEENT History: hayfever Cardiovascular History: Reports: Afib, Bacterial Endocarditis, Blood Clots/VTE/DVT, Heart Valve Replacement, Hypertension, Other (See Below) Other Cardiovascular History: hx afib. arotic dissectiion. blood clot groin. heart surgery put new valve in. had chest tube past admission in [place] was DCed, drain site scabbed over Respiratory History: Reports: None Gastrointestinal History: Reports: Colon Polyp, GERD Genitourinary History: Reports: None CAMERA ENGINEER History: Reports: Other OB/BYN History: Musculoskeletal History: Reports: Fracture Neurological History: Reports: Other (See Below) Other Neuro History: INSOMNIA, OTHER EXTRAPYRAMIDAL DISEASE AND ABNORMAL MOVEMENT DISORDER Psychiatric History: Reports: Anxiety, Depression Endocrine/Metabolic History: Reports: Obesity/BMI 30+ Hematologic History: Reports: Blood Transfusion(s) Immunologic History: Reports: None Oncologic (Cancer) History: Reports: None Dermatologic History: Reports: None - Infectious Disease History Infectious Disease History: Reports: Chicken Pox, Measles, Shingles - Past Surgical History HEENT Surgical History: Reports: None Cardiovascular Surgical History: Reports: Valve Replacement Respiratory Surgical History: Reports: None GI Surgical History: Reports: Colonoscopy, EGD Female Surgical History: Reports: Section, Tubal Ligation Endocrine Surgical History: Reports: None Neurological Surgical History: Reports: None Musculoskeletal Surgical History: Reports: Hip Replacement, Other (See Below) Other Musculoskeletal Surgeries/Procedures:: LEFT FOOT SURGERY. right partial hip replacement Dermatological Surgical History: Reports: None Social & Family History - Family History Family Medical History: Noncontributory - Caffeine Use Caffeine Use: Reports: Coffee - Living Situation & Occupation Occupation: Retired H&P Review of Systems - Review of Systems: Review Of Systems: See Below General: Reports: No Symptoms HEENT: Reports: Headaches, Visual Changes (left visual rosas) Pulmonary: Reports: No Symptoms Cardiovascular: Reports: No Symptoms Gastrointestinal: Reports: No Symptoms Genitourinary: Reports: No Symptoms Musculoskeletal: Reports: No Symptoms Skin: Reports: No Symptoms Psychiatric: Reports: No Symptoms Neurological: Reports: Confusion (some cognitive deficits since last admission) Hematologic/Lymphatic: Reports: No Symptoms Immunologic: Reports: Other (Contrast dye) Exam - Exam Exam: See Below - Exam General: Alert, Oriented, Cooperative HEENT: PERRLA, Conjunctiva Clear, Hearing Intact, Mucosa Moist & [place], Other (left visual rosas deficit) Neck: Supple, Trachea Midline Lungs: Clear to Auscultation, Normal Respiratory Effort Cardiovascular: Regular Rate, Regular Rhythm, Systolic Murmur (4/6, aortic area) GI/Abdominal Exam: Normal Bowel Sounds, Soft, Non-Tender, No Distention (Female) Exam: Deferred Rectal (Female) Exam: Deferred Extremities: No Pedal Edema Peripheral Pulses: 2+: Radial (L), Radial (R) Skin: Warm, Dry, Intact Neuro Extensive - Motor, Sensory, Reflexes: Motor/Sensory Deficits (left visual rosas). No: Receptive Aphasia, Expressive Aphasia, Hemeplagia (R), Hemeplagia (L) Psychiatric: Alert, Normal Affect, Normal Mood *Q Meaningful Use (ADM) - VTE *Q VTE Pharmacological Contraindications *Q: Cerebral Hemorrhag Infarc - VTE Risk Assess *Q Each Risk Factor Represents 1 Point: History of prior major surgery less than 1 month, Congestive heart failure (CHF) Total Score 1 Point Risk Factors: 2 Each Risk Factor Represents 2 Points: Age 60 - 74 Years Total Score 2 Point Risk Factors: 2 Each Risk Factor Represents 3 Points: None Total Score 3 Point Risk Factors: 0 Each Risk Factor Represents 5 Points: Stroke, Less than 1 Month Total Score 5 Point Risk Factors: 5 Venous Thromboembolism Risk Factor Score *Q: 9 - Problem List (1) S/P evacuation of hematoma SNOMED Code(s): 379072336, 486487831 ICD Code: Z98.890 - OTHER SPECIFIED POSTPROCEDURAL STATES Status: Acute Current Visit: Yes (2) Intracranial hematoma SNOMED Code(s): 365483893 ICD Code: S06.899A - INTCRAN INJ W LOSS OF CONSCIOUSNESS OF UNSP DURATION, INIT Status: Acute Current Visit: Yes Onset Date: ~03/12/20 (3) Bacteremia due to Enterococcus SNOMED Code(s): 222848297961, 064816073808 ICD Code: R78.81 - BACTEREMIA; B95.2 - ENTEROCOCCUS THE CAUSE OF DISEASES CLASSIFIED ELSEWHERE Status: Acute Current Visit: Yes (4) S/P aortic valve replacement with porcine valve SNOMED Code(s): 19846106695660, 261745556, 972805081, 81932867358372 ICD Code: Z95.3 - PRESENCE OF XENOGENIC HEART VALVE Status: Chronic Current Visit: Yes Onset Date: ~07/2019 (5) GERD (gastroesophageal reflux disease) SNOMED Code(s): 571290610 ICD Code: K21.9 - GASTRO-ESOPHAGEAL REFLUX DISEASE WITHOUT ESOPHAGITIS Status: Chronic Current Visit: Yes (6) HTN (hypertension) SNOMED Code(s): 29686703 ICD Code: I10 - ESSENTIAL (PRIMARY) HYPERTENSION Status: Chronic Current Visit: No Qualifiers: Hypertension type: essential hypertension Qualified Code(s): I10 - Essential (primary) hypertension Problem List Initiated/Reviewed/Updated: Yes Orders Last 24hrs: Active Orders 24 hr Category Date Time Status Patient Status [ADT] Routine ADT 03/31/20 13:32 Active Height and Weight [RC] WEEKLY Care 03/31/20 13:32 Active Oxygen Therapy [RC] PRN Care 03/31/20 13:32 Active Up With Assistance [RC] ASDIRECTED Care 03/31/20 13:32 Active Up to Chair [RC] ASDIRECTED Care 03/31/20 13:32 Active VTE/DVT Education [RC] Per Unit Routine Care 03/31/20 13:32 Active Vital Signs [RC] PER UNIT ROUTINE Care 03/31/20 13:32 Active OT Evaluation and Treatment [CONS] Routine Cons 03/31/20 13:32 Active PT Evaluation and Treatment [CONS] Routine Cons 03/31/20 13:32 Active SCANNING COORDINATOR Evaluation and Treatment [CONS] Routine Cons 03/31/20 13:32 Active Regular Diet [DIET] Diet 03/31/20 Dinner Active ALANINE AMINOTRANSFERASE,ALT [CHEM] WEEKLY Lab 04/03/20 06:00 Ordered ALANINE AMINOTRANSFERASE,ALT [CHEM] WEEKLY Lab 04/10/20 06:00 Ordered ALANINE AMINOTRANSFERASE,ALT [CHEM] WEEKLY Lab 04/17/20 06:00 Ordered ALANINE AMINOTRANSFERASE,ALT [CHEM] WEEKLY Lab 04/24/20 06:00 Ordered CBC WITH AUTO DIFF [HEME] WEEKLY Lab 04/03/20 06:00 Ordered CBC WITH AUTO DIFF [HEME] WEEKLY Lab 04/10/20 06:00 Ordered CBC WITH AUTO DIFF [HEME] WEEKLY Lab 04/17/20 06:00 Ordered CBC WITH AUTO DIFF [HEME] WEEKLY Lab 04/24/20 06:00 Ordered CREATININE W/GFR [CHEM] WEEKLY Lab 04/03/20 06:00 Ordered CREATININE W/GFR [CHEM] WEEKLY Lab 04/10/20 06:00 Ordered CREATININE W/GFR [CHEM] WEEKLY Lab 04/17/20 06:00 Ordered CREATININE W/GFR [CHEM] WEEKLY Lab 04/24/20 06:00 Ordered Acetaminophen [Tylenol Extra Strength] Med 03/31/20 13:40 Active 500 mg PO Q4H PRN Acetaminophen/HYDROcodone [[place] 325-5 MG] Med 03/31/20 13:26 Active 1 tab PO Q6H PRN Ampicillin 2 gm Med 03/31/20 14:00 Active Sodium Chloride 0.9% [Normal Saline] 100 ml IV Q4H Docusate Sodium/Sennosides [Senna Plus] Med 03/31/20 21:00 Active 1 tab PO BID Escitalopram [Lexapro] Med 04/01/20 09:00 Active 20 mg PO DAILY Fluconazole [Diflucan] Med 03/31/20 17:00 Once 150 mg PO ONETIME ONE Furosemide [Lasix] Med 04/01/20 09:00 Active 20 mg PO DAILY Gabapentin [Neurontin] Med 03/31/20 14:00 Active 300 mg PO TID Heparin Sodium [Heparin Lock Flush 100 Units/ML] Med 03/31/20 14:30 Active 300 units FLUSH Q4H Melatonin Med 03/31/20 21:00 Active 6 mg PO BEDTIME Pantoprazole [ProTONIX] Med 04/01/20 06:00 Active 40 mg PO DAILY@0600 Sodium Chloride 0.9% [Saline Flush] Med 03/31/20 13:26 Active 10 ml FLUSH ASDIRECTED PRN amLODIPine [Norvasc] Med 04/01/20 09:00 Active 5 mg PO DAILY carvediloL [Coreg] Med 03/31/20 18:00 Active 6.25 mg PO BIDMEALS cefTRIAXone [Rocephin] Med 03/31/20 22:30 Active 2 gm IVPUSH Q12H Antiembolic Hose [OM.PC] Per Unit Routine Oth 03/31/20 13:35 Ordered VTE Pharmacological Contraindications [AST] Per Unit Oth 03/31/20 13:32 Ordered Routine Resuscitation Status Routine Resus Stat 03/31/20 13:32 Ordered Medication Orders Acetaminophen (Tylenol Extra Strength) 500 mg PO Q4H PRN PRN Reason: Pain (Mild 1-3)/fever Hydrocodone Bitart/Acetaminophen ([place] 325-5 Mg) 1 tab PO Q6H PRN PRN Reason: MODERATE/SEVERE PAIN Amlodipine Besylate (Norvasc) 5 mg PO DAILY [facility] Carvedilol (Coreg) 6.25 mg PO BIDMEALS [facility] Ceftriaxone Sodium (Rocephin) 2 gm IVPUSH Q12H [facility] Stop: 04/30/20 23:59 Escitalopram Oxalate (Lexapro) 20 mg PO DAILY [facility] Fluconazole (Diflucan) 150 mg PO ONETIME ONE Stop: 03/31/20 17:01 Furosemide (Lasix) 20 mg PO DAILY [facility] Gabapentin (Neurontin) 300 mg PO TID [facility] Last Admin: 03/31/20 14:13 Dose: 300 mg Documented by: MEGHA Heparin Sodium (Porcine) (Heparin Lock Flush 100 Units/Ml) 300 units FLUSH Q4H [facility] Ampicillin Sodium 2 gm/ Sodium (Chloride) 100 mls @ 200 mls/hr IV Q4H [facility] Stop: 04/30/20 23:59 Last Admin: 03/31/20 14:09 Dose: 200 mls/hr Documented by: MEGHA Melatonin (Melatonin) 6 mg PO BEDTIME [facility] Pantoprazole Sodium (Protonix) 40 mg PO DAILY@0600 [facility] Senna/Docusate Sodium (Senna Plus) 1 tab PO BID [facility] Sodium Chloride (Saline Flush) 10 ml FLUSH ASDIRECTED PRN PRN Reason: FLUSH Last Admin: 03/31/20 14:09 Dose: 10 ml Documented by: MEGHA Assessment/Plan Comment:: 1. Admit to [facility]ing[facility] for PT/OT/speech therapy s/p intracranial hematoma with extension, s/p craniotomy. 6 weeks IV antibiotics for Enterococcus bacteremia. 2. Ampicillin 2G IV q4h and Rocephin 2G IV q12h through 04/30/2020; weekly CBC, Cr and ALT. 3. Regular home diet, room service. 4. Activity: up with assist x 1, up to chair. 5. No anticoagulation per Cardiology/neurology. Follow up as outpatient for watchman device. 6. DVT prophylaxis: Ambulation, SHEYLA hose bilateral knee high. 7. Fluconazole 1 dose tonight, complete 3 dose course. 8. FULL CODE. - Mortality Measure Prognosis:: Good
[2020-03-31] MEDS ORDERED: Pneumococcal Polyvalent-23 Vaccine 0.5 ML SDV IM ONE (16:01)
[2020-03-31] MEDS ORDERED: Fluconazole 150 MG Tab PO ONE (17:00)
[2020-03-31] MEDS: Carvedilol 6.25 MG Tab PO SCH (18:21)
[2020-03-31] MEDS: Acetaminophen/HYDROcodone 325-5 MG Tab PO PRN (18:28)
[2020-03-31] MEDS: Acetaminophen 500 MG Tab PO PRN (19:13)
[2020-03-31] MEDS: Melatonin 3 MG Tab PO SCH (20:59)
[2020-03-31] MEDS: cefTRIAXone 2 GM Vial IVPUSH SCH (22:40)
[2020-04-01] MEDS: Ampicillin 2 GM in Sodium Chloride 0.9% 100 ML IV SCH ×6 (01:52→22:29)
[2020-04-01] MEDS: Sodium Chloride 0.9% 10 ML Syringe FLUSH PRN ×6 (02:25→23:43)
[2020-04-01] MEDS: Pantoprazole 40 MG Tab.CR PO SCH (05:45)
[2020-04-01] MEDS: Furosemide 20 MG Tab PO SCH (08:37)
[2020-04-01] MEDS: Escitalopram 20 MG Tab PO SCH (08:37)
[2020-04-01] MEDS: amLODIPine 5 MG Tab PO SCH (08:37)
[2020-04-01] MEDS: Carvedilol 6.25 MG Tab PO SCH ×2 (08:37→18:15)
[2020-04-01] MEDS: Gabapentin 300 MG Cap PO SCH ×3 (08:47→20:00)
[2020-04-01] MEDS: Acetaminophen 500 MG Tab PO PRN (08:47)
[2020-04-01] MEDS: cefTRIAXone 2 GM Vial IVPUSH SCH ×2 (10:35→23:00)
[2020-04-01] MEDS: Acetaminophen/HYDROcodone 325-5 MG Tab PO PRN ×2 (12:34→20:00)
[2020-04-01] MEDS: Melatonin 3 MG Tab PO SCH (20:02)
[2020-04-02] MEDS: Ampicillin 2 GM in Sodium Chloride 0.9% 100 ML IV SCH ×6 (01:54→21:39)
[2020-04-02] MEDS: Pantoprazole 40 MG Tab.CR PO SCH (05:39)
[2020-04-02] MEDS: Carvedilol 6.25 MG Tab PO SCH ×2 (09:41→18:02)
[2020-04-02] MEDS: Furosemide 20 MG Tab PO SCH (09:43)
[2020-04-02] MEDS: Gabapentin 300 MG Cap PO SCH ×3 (09:43→21:38)
[2020-04-02] MEDS: amLODIPine 5 MG Tab PO SCH (09:44)
[2020-04-02] MEDS: Escitalopram 20 MG Tab PO SCH (09:45)
[2020-04-02] MEDS: Acetaminophen/HYDROcodone 325-5 MG Tab PO PRN ×3 (10:00→22:00)
[2020-04-02] MEDS: cefTRIAXone 2 GM Vial IVPUSH SCH ×2 (10:38→22:14)
[2020-04-02] MEDS ORDERED: Pneumococcal Polyvalent-23 Vaccine 0.5 ML SDV IM ONE (12:17)
[2020-04-02] MEDS: Sodium Chloride 0.9% 10 ML Syringe FLUSH PRN ×3 (18:37→22:20)
[2020-04-02] MEDS: Melatonin 3 MG Tab PO SCH (21:38)
[2020-04-03] MEDS: Ampicillin 2 GM in Sodium Chloride 0.9% 100 ML IV SCH ×6 (01:51→22:09)
[2020-04-03] MEDS: Sodium Chloride 0.9% 10 ML Syringe FLUSH PRN ×8 (02:34→22:54)
[2020-04-03] MEDS: Pantoprazole 40 MG Tab.CR PO SCH (06:09)
[2020-04-03] MEDS: Furosemide 20 MG Tab PO SCH (09:44)
[2020-04-03] MEDS: Carvedilol 6.25 MG Tab PO SCH ×3 (09:44→17:24)
[2020-04-03] MEDS: amLODIPine 5 MG Tab PO SCH (09:44)
[2020-04-03] MEDS: Gabapentin 300 MG Cap PO SCH ×3 (09:45→22:27)
[2020-04-03] MEDS: Escitalopram 20 MG Tab PO SCH (09:45)
[2020-04-03] MEDS: cefTRIAXone 2 GM Vial IVPUSH SCH ×2 (10:19→22:48)
[2020-04-03] MEDS: Acetaminophen/HYDROcodone 325-5 MG Tab PO PRN ×2 (12:40→19:02)
[2020-04-03] MEDS: Melatonin 3 MG Tab PO SCH (22:27)
[2020-04-04] MEDS: Ampicillin 2 GM in Sodium Chloride 0.9% 100 ML IV SCH ×6 (02:00→22:17)
[2020-04-04] MEDS: Sodium Chloride 0.9% 10 ML Syringe FLUSH PRN ×10 (02:33→22:54)
[2020-04-04] MEDS: Pantoprazole 40 MG Tab.CR PO SCH (06:06)
[2020-04-04] MEDS: Carvedilol 6.25 MG Tab PO SCH ×2 (08:58→17:53)
[2020-04-04] MEDS: Escitalopram 20 MG Tab PO SCH (08:59)
[2020-04-04] MEDS: Furosemide 20 MG Tab PO SCH (08:59)
[2020-04-04] MEDS: amLODIPine 5 MG Tab PO SCH (09:00)
[2020-04-04] MEDS: Gabapentin 300 MG Cap PO SCH ×3 (09:03→20:10)
[2020-04-04] MEDS: Acetaminophen/HYDROcodone 325-5 MG Tab PO PRN ×2 (10:08→16:13)
[2020-04-04] MEDS: cefTRIAXone 2 GM Vial IVPUSH SCH ×2 (10:45→22:08)
[2020-04-04 16:55] LABS: CORNONAVIRUS (COVID19) CSH-NRL Negative (Negative)
[2020-04-04] MEDS: Melatonin 3 MG Tab PO SCH (20:11)
[2020-04-05] MEDS: Ampicillin 2 GM in Sodium Chloride 0.9% 100 ML IV SCH ×6 (01:57→21:38)
[2020-04-05] MEDS: Sodium Chloride 0.9% 10 ML Syringe FLUSH PRN ×11 (02:26→22:12)
[2020-04-05] MEDS: Pantoprazole 40 MG Tab.CR PO SCH (06:05)
[2020-04-05] MEDS: Carvedilol 6.25 MG Tab PO SCH ×2 (09:17→17:35)
[2020-04-05] MEDS: Escitalopram 20 MG Tab PO SCH (09:18)
[2020-04-05] MEDS: Furosemide 20 MG Tab PO SCH (09:18)
[2020-04-05] MEDS: amLODIPine 5 MG Tab PO SCH (09:19)
[2020-04-05] MEDS: Gabapentin 300 MG Cap PO SCH ×3 (09:21→20:06)
[2020-04-05] MEDS: Acetaminophen/HYDROcodone 325-5 MG Tab PO PRN ×2 (09:33→17:34)
[2020-04-05] MEDS: cefTRIAXone 2 GM Vial IVPUSH SCH ×2 (10:03→21:31)
[2020-04-05] MEDS: Melatonin 3 MG Tab PO SCH (20:05)
[2020-04-06] MEDS: Ampicillin 2 GM in Sodium Chloride 0.9% 100 ML IV SCH ×6 (01:32→21:01)
[2020-04-06] MEDS: Sodium Chloride 0.9% 10 ML Syringe FLUSH PRN ×10 (02:12→21:34)
[2020-04-06] MEDS: Pantoprazole 40 MG Tab.CR PO SCH (05:26)
[2020-04-06] MEDS: Gabapentin 300 MG Cap PO SCH ×3 (08:38→21:01)
[2020-04-06] MEDS: Acetaminophen/HYDROcodone 325-5 MG Tab PO PRN ×3 (08:38→20:54)
[2020-04-06] MEDS: Carvedilol 6.25 MG Tab PO SCH ×2 (08:39→17:14)
[2020-04-06] MEDS: Furosemide 20 MG Tab PO SCH (08:40)
[2020-04-06] MEDS: amLODIPine 5 MG Tab PO SCH (08:40)
[2020-04-06] MEDS: Escitalopram 20 MG Tab PO SCH (08:40)
[2020-04-06] MEDS: cefTRIAXone 2 GM Vial IVPUSH SCH ×2 (10:47→21:34)
[2020-04-06] MEDS: Melatonin 3 MG Tab PO SCH (21:01)
[2020-04-07] MEDS: Ampicillin 2 GM in Sodium Chloride 0.9% 100 ML IV SCH ×6 (02:52→21:51)
[2020-04-07] MEDS: Sodium Chloride 0.9% 10 ML Syringe FLUSH PRN ×9 (02:53→22:28)
[2020-04-07] MEDS: Acetaminophen/HYDROcodone 325-5 MG Tab PO PRN ×4 (02:54→22:40)
[2020-04-07] MEDS: Pantoprazole 40 MG Tab.CR PO SCH (06:21)
[2020-04-07] MEDS: Furosemide 20 MG Tab PO SCH (08:57)
[2020-04-07] MEDS: Gabapentin 300 MG Cap PO SCH ×3 (08:58→22:02)
[2020-04-07] MEDS: Escitalopram 20 MG Tab PO SCH (08:58)
[2020-04-07] MEDS: amLODIPine 5 MG Tab PO SCH (08:58)
[2020-04-07] MEDS: Carvedilol 6.25 MG Tab PO SCH ×2 (09:03→20:00)
--- NOTE | 2020-04-07 11:08 | PN ---
DATE SEEN: 04/07/2020 SUBJECTIVE: Regina Berman is a 65-year-old female admitted to [facility] bed. She had an intracranial bleed with craniotomy, found to have Enterococcus positive blood cultures, in the setting of a prosthetic aortic valve. Doing quite well. Increasing issues of amyloid cerebral angiopathy, complicated left homonymous hemianopsia, left vision, and her septic event. Doing remarkably well. Planned intervention on 04/30/2020 with antibiotics. PICC line in place, right side. Speech Therapy notes and intervention. LABORATORY STUDIES: hemoglobin 9.7, normal indices. PHYSICAL EXAMINATION: VITAL SIGNS: 114/70, mean blood pressure 84; heart rate 77; 18; and 96%. GENERAL: Bright, alert, awake. Speech was fluent. NECK: Benign. Thyroid small. Left homonymous hemianopsia clinically present. CHEST: Clear in all lung rosas. HEART: No ectopy or murmur. Sternotomy scar healing well. ABDOMEN: Benign. IMPRESSION: 1. Complicated health issues. 2. Intracranial bleed. 3. Enterococcus bacteremia. 4. Sepsis. PLAN: Medications, care, and treatment appropriate. Support services in place. /[id number] DAMARIS/OFELIA
[2020-04-07] MEDS: cefTRIAXone 2 GM Vial IVPUSH SCH ×2 (11:48→22:26)
[2020-04-07] MEDS: Melatonin 3 MG Tab PO SCH (21:57)
[2020-04-08] MEDS: Ampicillin 2 GM in Sodium Chloride 0.9% 100 ML IV SCH ×6 (02:11→21:21)
[2020-04-08] MEDS: Sodium Chloride 0.9% 10 ML Syringe FLUSH PRN ×9 (02:13→21:50)
[2020-04-08] MEDS: Pantoprazole 40 MG Tab.CR PO SCH (05:14)
[2020-04-08] MEDS: Acetaminophen/HYDROcodone 325-5 MG Tab PO PRN ×2 (09:32→18:22)
[2020-04-08] MEDS: Carvedilol 6.25 MG Tab PO SCH ×2 (09:34→18:23)
[2020-04-08] MEDS: Furosemide 20 MG Tab PO SCH (09:35)
[2020-04-08] MEDS: Gabapentin 300 MG Cap PO SCH ×3 (09:35→21:26)
[2020-04-08] MEDS: amLODIPine 5 MG Tab PO SCH (09:36)
[2020-04-08] MEDS: Escitalopram 20 MG Tab PO SCH (09:36)
[2020-04-08] MEDS: cefTRIAXone 2 GM Vial IVPUSH SCH ×2 (09:54→21:34)
--- NOTE | 2020-04-08 10:16 | PN ---
DATE SEEN: 04/08/2020 SUBJECTIVE: Regina Berman is a 65-year-old female, inpatient swing bed stay for a complicated infection. Please see History and Physical. Recurrent Enterococcus infection. Also had an intracranial bleed. Doing well. Ambulation is improving. Strength is improving. Visual defect continues to the left. Presently on ampicillin 2 g q.4 hours, ceftriaxone 2 g IV q.12 hours. OTHER MEDICATIONS: Reviewed and appropriate. PHYSICAL EXAMINATION: VITAL SIGNS: 114/75, pulse of 69. GENERAL: Always in good spirits. NECK: Benign. No JVD. CHEST: Clear in all lung rosas. HEART: No ectopy or murmur. ABDOMEN: Benign. IMPRESSION: Complicated infection with multiple comorbidities. PLAN: Meds, care, and treatment appropriate. Comfort measures in place. Antibiotics until 04/30/2020. /[id number] DAMARIS/OFELIA
[2020-04-08] MEDS: Melatonin 3 MG Tab PO SCH (21:25)
[2020-04-09] MEDS: Sodium Chloride 0.9% 10 ML Syringe FLUSH PRN ×9 (02:09→21:47)
[2020-04-09] MEDS: Ampicillin 2 GM in Sodium Chloride 0.9% 100 ML IV SCH ×6 (02:10→21:08)
[2020-04-09] MEDS: Acetaminophen/HYDROcodone 325-5 MG Tab PO PRN ×3 (02:17→17:13)
[2020-04-09] MEDS: Pantoprazole 40 MG Tab.CR PO SCH (06:21)
[2020-04-09] MEDS: Gabapentin 300 MG Cap PO SCH ×3 (08:52→20:19)
[2020-04-09] MEDS: Carvedilol 6.25 MG Tab PO SCH ×2 (08:53→19:09)
[2020-04-09] MEDS: Furosemide 20 MG Tab PO SCH (08:53)
[2020-04-09] MEDS: Escitalopram 20 MG Tab PO SCH (08:53)
[2020-04-09] MEDS: amLODIPine 5 MG Tab PO SCH (08:54)
--- NOTE | 2020-04-09 10:42 | PN ---
DATE SEEN: 04/09/2020 HISTORY OF PRESENT ILLNESS: Hetal Berman is a 65-year-old female, long-term antibiotic use for Enterococcus, bacteremia, septicemia. Prosthetic valve, recent spontaneous intracranial bleed and resultant hemianopsia, left-sided visual loss in place. No particular complaints. MEDICATIONS: Reviewed and appropriate. PHYSICAL EXAMINATION: VITAL SIGNS: 37.2, 69, 120/73, 18, and 96%. GENERAL: As always in good spirits. NECK: Benign. Thyroid small. CHEST: Clear in all lung rosas. HEART: Audible murmur. ABDOMEN: Benign. HEENT: Hemianopsia of the left identified. ASSESSMENT: Complicated health issues. PLAN: Medications on board, IV antibiotics until 04/30/2020. Intervention and care as appropriate. /[id number] DAMARIS/OFELIA
[2020-04-09] MEDS: cefTRIAXone 2 GM Vial IVPUSH SCH ×2 (10:50→21:41)
[2020-04-09] MEDS: Melatonin 3 MG Tab PO SCH (20:19)
[2020-04-10] MEDS: Ampicillin 2 GM in Sodium Chloride 0.9% 100 ML IV SCH ×6 (02:00→21:06)
[2020-04-10] MEDS: Sodium Chloride 0.9% 10 ML Syringe FLUSH PRN ×7 (02:01→21:39)
[2020-04-10] MEDS: Acetaminophen/HYDROcodone 325-5 MG Tab PO PRN ×3 (02:40→18:13)
[2020-04-10] MEDS: Pantoprazole 40 MG Tab.CR PO SCH (05:26)
[2020-04-10] MEDS: Furosemide 20 MG Tab PO SCH (09:09)
[2020-04-10] MEDS: Carvedilol 6.25 MG Tab PO SCH ×2 (09:09→18:19)
[2020-04-10] MEDS: Escitalopram 20 MG Tab PO SCH (09:10)
[2020-04-10] MEDS: amLODIPine 5 MG Tab PO SCH (09:10)
[2020-04-10] MEDS: Gabapentin 300 MG Cap PO SCH ×3 (09:10→21:05)
[2020-04-10] MEDS: cefTRIAXone 2 GM Vial IVPUSH SCH ×2 (11:24→21:38)
--- NOTE | 2020-04-10 12:38 | PN ---
DATE SEEN: 04/10/2020 SUBJECTIVE: Regina Berman is a 65-year-old female seen today for routine care. She is on ampicillin and ceftriaxone for Enterococcus bacteremia. She has prosthetic valve. Had an intracranial bleed, which required a craniotomy. Making good progress. Concerns about higher level functions are in place. CBC today revealed a peculiar issue. White count fell from 4800 to 2200, hemoglobin 9.7 to 10.7, 50% lymphocytes, eosinophils, and platelets of 275,000. PHYSICAL EXAMINATION: GENERAL: Bright, alert, awake. HEAD: Craniotomy healing well. CHEST: Clear. HEART: Regular. ABDOMEN: Benign. IMPRESSION: 1. Intracranial bleed with craniotomy. 2. Enterococcus septicemia. PLAN: Medications, care, and treatment appropriate. IV antibiotics. Plan for PICC line on 04/30/2020. /[id number] DAMARIS/OFELIA
[2020-04-10 17:37] LABS: CORNONAVIRUS (COVID19) CSH-NRL Negative (Negative)
[2020-04-10] MEDS: Melatonin 3 MG Tab PO SCH (21:05)
[2020-04-11] MEDS: Ampicillin 2 GM in Sodium Chloride 0.9% 100 ML IV SCH ×6 (01:55→21:08)
[2020-04-11] MEDS: Sodium Chloride 0.9% 10 ML Syringe FLUSH PRN ×11 (02:02→21:58)
[2020-04-11] MEDS: Pantoprazole 40 MG Tab.CR PO SCH (05:33)
[2020-04-11] MEDS: Acetaminophen/HYDROcodone 325-5 MG Tab PO PRN ×3 (05:35→18:27)
[2020-04-11] MEDS: Gabapentin 300 MG Cap PO SCH ×3 (08:26→19:59)
[2020-04-11] MEDS: Carvedilol 6.25 MG Tab PO SCH ×2 (08:27→18:31)
[2020-04-11] MEDS: amLODIPine 5 MG Tab PO SCH (08:28)
[2020-04-11] MEDS: Furosemide 20 MG Tab PO SCH (08:28)
[2020-04-11] MEDS: Escitalopram 20 MG Tab PO SCH (08:28)
[2020-04-11] MEDS: cefTRIAXone 2 GM Vial IVPUSH SCH ×2 (11:15→21:57)
--- NOTE | 2020-04-11 12:45 | PN ---
DATE SEEN: 04/11/2020 SUBJECTIVE: Regina Berman is a 65-year-old female with complicated health issue. Has Enterococcus endocarditis and bacteremia. Presently on ampicillin and Rocephin. Plans until 04/30/2020. COVID returned negative today. Off precautions. Otherwise, doing well. OBJECTIVE: Craniotomy scar healing well. Speech was fluent. A bit gated. Exam was otherwise stable. ASSESSMENT: Complicated bacteremia, septicemia. Plans and intervention in place. /[id number] /OFELIA
[2020-04-11] MEDS: Melatonin 3 MG Tab PO SCH (19:59)
[2020-04-12] MEDS: Ampicillin 2 GM in Sodium Chloride 0.9% 100 ML IV SCH ×3 (02:01→10:03)
[2020-04-12] MEDS: Sodium Chloride 0.9% 10 ML Syringe FLUSH PRN ×6 (02:14→15:25)
[2020-04-12] MEDS: Pantoprazole 40 MG Tab.CR PO SCH (05:54)
[2020-04-12] MEDS: Acetaminophen/HYDROcodone 325-5 MG Tab PO PRN ×3 (06:00→18:05)
[2020-04-12] MEDS: Acetaminophen 500 MG Tab PO PRN ×2 (06:15→21:45)
[2020-04-12] MEDS: amLODIPine 5 MG Tab PO SCH (08:14)
[2020-04-12] MEDS: Gabapentin 300 MG Cap PO SCH ×3 (08:14→21:45)
[2020-04-12] MEDS: Escitalopram 20 MG Tab PO SCH (08:14)
[2020-04-12] MEDS: Furosemide 20 MG Tab PO SCH (08:15)
[2020-04-12] MEDS: Carvedilol 6.25 MG Tab PO SCH ×2 (08:15→18:06)
[2020-04-12] MEDS: cefTRIAXone 2 GM Vial IVPUSH SCH (10:45)
--- NOTE | 2020-04-12 11:20 | PN ---
DATE SEEN: 04/12/2020 REASON FOR EVALUATION: Routine followup, enterococcal bacteremia. SUBJECTIVE: Hetal Berman is a delightful 65-year-old female, long- term antibiotic care. Enterovirus bacteremia. Presently on ampicillin, ceftriaxone. Plan is until 04/30/2020. Did spike a fever last evening to 101. It is now down today, Tylenol beneficial. Peculiar laboratory studies, white count has fallen from 4800 to 2200 to 1700, hemoglobin 9.7, 10.7, 10.6, platelets unremarkable, and a peculiar issue of 56% lymphocytes, 34% eosinophils, 2 neutrophils, 4 monocytes, and no basophils. Electrolytes were satisfactory otherwise and comfortable. It has been reported by nurse Kayli that these laboratory studies have been forwarded to an Infectious Disease doctor in [place]. She voices no complaints today. PHYSICAL EXAMINATION: VITAL SIGNS: This morning, 119/96, 36.8, 140/90, 14, and 96%. GENERAL: Always in good spirits. NECK: Benign. CHEST: Clear in all lung rosas. HEART: No ectopy or murmur. ABDOMEN: Benign. ASSESSMENT: Fever benign, peculiar differential and white count. PLAN: We will await any reply or response from her ID doctor in [place]. /[id number] DAMARIS/OFELIA
[2020-04-12] MEDS: Melatonin 3 MG Tab PO SCH (21:45)
[2020-04-13] MEDS: Sodium Chloride 0.9% 10 ML Syringe FLUSH PRN ×6 (01:53→18:32)
[2020-04-13] MEDS: Pantoprazole 40 MG Tab.CR PO SCH (05:45)
[2020-04-13] MEDS: Acetaminophen 500 MG Tab PO PRN ×3 (06:45→20:30)
[2020-04-13] MEDS: Carvedilol 6.25 MG Tab PO SCH ×2 (09:09→18:35)
[2020-04-13] MEDS: Escitalopram 20 MG Tab PO SCH (09:17)
[2020-04-13] MEDS: Furosemide 20 MG Tab PO SCH (09:17)
[2020-04-13] MEDS: amLODIPine 5 MG Tab PO SCH (09:17)
[2020-04-13] MEDS: Acetaminophen/HYDROcodone 325-5 MG Tab PO PRN ×3 (09:22→21:54)
[2020-04-13] MEDS: Gabapentin 300 MG Cap PO SCH ×3 (09:22→20:51)
--- NOTE | 2020-04-13 11:56 | PN ---
DATE SEEN: 04/13/2020 SUBJECTIVE: Tashia Berman is a 65-year-old female admitted for care. She has Enterococcus septicemia, infected valve, recent intracranial bleed, under long-term antibiotic therapy. She had been on ampicillin and ceftriaxone. Fever, decreasing white count, peculiar eosinophilia greater than 50% resulted in change under the care of Infectious Disease in [place] to vancomycin. She has had some persistent low-grade fevers and feeling lethargic. CBC on shows 1.7, hemoglobin 10.6, 56%, 34% eosinophils. PHYSICAL EXAMINATION: GENERAL: Appears comfortable. NECK: No JVD. CHEST: Clear in all lung rosas. HEART: No ectopy. Soft murmur. ABDOMEN: Benign. ASSESSMENT: Peculiar fever under the setting of Enterococcus infection. PLAN: We will recheck blood cultures, CBC, and appropriate management. /[id number] DAMARIS/OFELIA
[2020-04-13] MEDS: Ciprofloxacin in D5W 400 MG in Premix Bag 1 BAG IV SCH ×2 (18:29)
[2020-04-13] MEDS: Melatonin 3 MG Tab PO SCH (20:51)
[2020-04-14] MEDS: Sodium Chloride 0.9% 10 ML Syringe FLUSH PRN ×6 (01:10→19:20)
[2020-04-14] MEDS: Ciprofloxacin in D5W 400 MG in Premix Bag 1 BAG IV SCH ×4 (05:03→16:57)
[2020-04-14] MEDS: Pantoprazole 40 MG Tab.CR PO SCH (06:29)
[2020-04-14] MEDS: Acetaminophen 500 MG Tab PO PRN ×3 (06:29→19:28)
[2020-04-14] MEDS: Furosemide 20 MG Tab PO SCH (08:58)
[2020-04-14] MEDS: Carvedilol 6.25 MG Tab PO SCH ×2 (08:58→17:59)
[2020-04-14] MEDS: Escitalopram 20 MG Tab PO SCH (08:59)
[2020-04-14] MEDS: amLODIPine 5 MG Tab PO SCH (08:59)
[2020-04-14] MEDS: Gabapentin 300 MG Cap PO SCH ×2 (09:11→20:37)
--- NOTE | 2020-04-14 09:29 | PN ---
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 She was admitted to [facility] [place] on 03/31/2020 for continued antibiotic therapy for her endocarditis and rehab from her intracranial hematoma. Antibiotic therapy was scheduled and it was continue through April 30, 2020. Because of fever and leukopenia, consultation has been held with her infectious disease doctor in [place], who changed her antibiotics to Cipro and vancomycin. The patient has been febrile and leukopenic. She states that she feels overall not well. Has a chronic headache. No other areas of pain. She has no cough, dyspnea, nausea, vomiting, diarrhea, bowel or bladder symptoms, skin rash, etc. PHYSICAL EXAMINATION: GENERAL: She is awake and a fair historian, although somewhat slow to with speech and thought. VITAL SIGNS: Blood pressure 115/62, pulse 107, temperature 103.5, respirations 18, O2 saturation 92% on room air. SKIN: Shows no rash. Mouth is dry. LUNGS: Have rales at both bases. HEART: Regular with a 3 to 4 over 6 systolic murmur over the aortic area with radiation to the precordium. ABDOMEN: Normal bowel sounds. Soft and nontender. EXTREMITIES: Show no edema. LABORATORY: White count 1300, hemoglobin 10.8, platelets 394, neutrophils not reportable, bands 2, lymphocytes 76, monos 2, eosinophils 16, basophils 4. Urinalysis clear. Vancomycin trough therapeutic at 5.9. Creatinine yesterday 0.7. ASSESSMENT: 1. Acute febrile illness with history of endocarditis, recent antibiotic change due to suspected drug reaction. 2. Severe granulocytopenia. 3. History of repair of thoracic ascending aneurysm. 4. Paroxysmal atrial fibrillation. PLAN: CBC will be faxed up to her Infectious Disease doctor at [place] in [place]. We will continue her current ciprofloxacin and vancomycin IV. Chest x- ray is done and pending. Blood cultures also done and pending. /[id number] RO/MODL
[2020-04-14] MEDS: Ibuprofen 400 MG Tab PO PRN (11:54)
--- NOTE | 2020-04-14 12:51 | PN ---
DATE SEEN: 04/13/2020 TIME SEEN: 6 p.m. SUBJECTIVE: Regina Berman is a young lady who is now hospitalized for complicated bacteremia sepsis. She has had episodic fevers the last 2 days. Infectious Disease moderated a change from ceftriaxone IV to vancomycin. Being followed by Pharmacy. Spiked a fever of 102 today. I spoke with Infectious Disease personally, felt that the white count and symptoms were probably a drug reaction. Recommended appropriate diagnostic studies to rule out secondary infection. Blood cultures which have been obtained will also be obtained from her right arm venous port, we will add to vancomycin was recommended, she called back and stated wanted to switch to ciprofloxacin 400 mg IV q.12 hours with moderate evaluation of white count and well being. Urinalysis will be obtained. Chest x-ray will be obtained. Blood cultures to follow accordingly. /[id number] DAMARIS/OFELIA
[2020-04-14] MEDS: Melatonin 3 MG Tab PO SCH (20:37)
[2020-04-15] MEDS: Acetaminophen 500 MG Tab PO PRN ×3 (01:18→16:37)
[2020-04-15] MEDS: Ibuprofen 400 MG Tab PO PRN ×3 (02:20→21:13)
[2020-04-15] MEDS: Sodium Chloride 0.9% 10 ML Syringe FLUSH PRN ×7 (03:10→22:45)
[2020-04-15] MEDS: Ciprofloxacin in D5W 400 MG in Premix Bag 1 BAG IV SCH ×4 (05:10→16:42)
[2020-04-15] MEDS ORDERED: Piperacillin/Tazobactam 3.375 GM in Sodium Chloride 0.9% 50 ML IV SCH (07:45)
[2020-04-15] MEDS ORDERED: Sodium Chloride 0.9% 10 ML Syringe FLUSH PRN (07:49)
[2020-04-15] MEDS ORDERED: Piperacillin/Tazobactam 4.5 GM in Sodium Chloride 0.9% 100 ML IV SCH ×2 (08:00→12:00)
[2020-04-15] MEDS: Furosemide 20 MG Tab PO SCH (08:52)
[2020-04-15] MEDS: Carvedilol 6.25 MG Tab PO SCH ×2 (08:52→17:46)
[2020-04-15] MEDS: Gabapentin 300 MG Cap PO SCH ×2 (08:53→20:10)
[2020-04-15] MEDS: amLODIPine 5 MG Tab PO SCH (08:53)
[2020-04-15] MEDS: Escitalopram 20 MG Tab PO SCH (08:53)
--- NOTE | 2020-04-15 09:11 | PN ---
DATE SEEN: 04/15/2020 HISTORY: Regina is a 65-year-old woman who developed endocarditis after a bioprosthetic aortic valve along with multiple other medical complications. She was treated with IV antibiotics and sent from acute care at [place] down to swing bed here on 03/31/2020. She has remained on antibiotics since. She began to develop fevers approximately 3 days ago. It was felt she may be having a drug reaction, so her ampicillin and ceftriaxone were switched to Cipro and vancomycin. She continued to have fevers and a slowly declining white count. Blood cultures, urinalysis, chest x-ray were done and 2 cultures from her right arm PICC line came back positive for gram-positive cocci. Her previous microbiology revealed Enterococcus sensitive to penicillins. Phone consultation was held with Dr. Coats from Infectious Disease and again with Dr. Amin from Infectious Disease this morning, who recommended removal of the PICC line and change from fluoroquinolones to Zosyn along with vancomycin. PHYSICAL EXAMINATION: GENERAL: Regina was examined in her bed this morning. She is awake. She states she feels slightly better. VITAL SIGNS: Her fever did not get quite as high last night up to 102.7, it is down to 98 currently this morning. Blood pressure we 113/72, pulse 78, respirations normal, O2 saturation 94% on room air. SKIN: Shows no sign of rash. There is no redness or tenderness at her right arm PICC line site. LUNGS: Clear to the bases. HEART: Regular with a 3/6 to 4/6 systolic murmur over the aortic area with slight precordial radiation. ABDOMEN: Soft, nontender. EXTREMITIES: Showed no edema. LABORATORY DATA: White count this morning 1000 with 4 segs, 4 PMNs, no bands, 52 lymphs, and 40 eosinophils. CRP 47.9. Blood cultures positive 2/2 from the PICC line for gram-positive cocci. ASSESSMENT: 1. 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 2. Neutropenia. 3. Previous bioprosthetic aortic valve replacement. 4. History of intraparenchymal cerebral bleed. 5. Atrial fibrillation. Now off anticoagulation. PLAN: We will remove her PICC line and change to the recommended Zosyn and vancomycin. Continue other current cares and orders and follow closely. /[id number] GRETTA/OFELIA
[2020-04-15] MEDS: Pantoprazole 40 MG Tab.CR PO SCH (10:37)
[2020-04-15] MEDS: Acetaminophen/HYDROcodone 325-5 MG Tab PO PRN (19:34)
[2020-04-15] MEDS: Melatonin 3 MG Tab PO SCH (20:09)
[2020-04-15] MEDS ORDERED: Vancomycin 1 GM SDV ONE (20:45)
[2020-04-16] MEDS: Pantoprazole 40 MG Tab.CR PO SCH (05:04)
[2020-04-16] MEDS: Acetaminophen 500 MG Tab PO PRN ×4 (05:04→20:22)
[2020-04-16] MEDS: Ciprofloxacin in D5W 400 MG in Premix Bag 1 BAG IV SCH ×4 (05:12→16:33)
[2020-04-16] MEDS: Sodium Chloride 0.9% 10 ML Syringe FLUSH PRN ×6 (06:15→23:20)
[2020-04-16] MEDS: Ibuprofen 400 MG Tab PO PRN ×2 (06:35→22:07)
[2020-04-16] MEDS ORDERED: Aluminum Hydroxide/Magnesium Hydroxide Susp 30 ML Cup PO PRN (08:26)
[2020-04-16] MEDS: Furosemide 20 MG Tab PO SCH (08:55)
[2020-04-16] MEDS: Escitalopram 20 MG Tab PO SCH (08:55)
[2020-04-16] MEDS: amLODIPine 5 MG Tab PO SCH (08:56)
[2020-04-16] MEDS: Carvedilol 6.25 MG Tab PO SCH (08:59)
[2020-04-16] MEDS: Carvedilol 3.125 MG Tab PO SCH ×2 (09:05→17:39)
[2020-04-16] MEDS: Acetaminophen/HYDROcodone 325-5 MG Tab PO PRN (09:40)
[2020-04-16] MEDS: Melatonin 3 MG Tab PO SCH (20:22)
[2020-04-17] MEDS: Pantoprazole 40 MG Tab.CR PO SCH (05:12)
[2020-04-17] MEDS: Acetaminophen 500 MG Tab PO PRN ×2 (05:12→20:44)
[2020-04-17] MEDS: Ciprofloxacin in D5W 400 MG in Premix Bag 1 BAG IV SCH ×4 (05:19→16:22)
[2020-04-17] MEDS: Sodium Chloride 0.9% 10 ML Syringe FLUSH PRN ×2 (06:30→16:21)
--- NOTE | 2020-04-17 07:01 | PN ---
DATE SEEN: 04/16/2020 HISTORY: Regina is a 65-year-old woman who had a bioprosthetic aortic valve with subsequent endocarditis. She has been here on IV antibiotics and over the past week, has developed a high fever and significant neutropenia. This is felt to be due to her beta-lactam antibiotic and she was changed to ciprofloxacin and vancomycin. Her fevers have come down slightly. She did have a maximum fever of 101.7 overnight. She feels slightly better, but did have an episode of chest palpitations. EKG was unremarkable and she describes it as a dysphagia-type feeling when she swallows. PHYSICAL EXAMINATION: GENERAL: She is alert and comfortable. HEENT: Clear. LUNGS: Clear to the bases. HEART: Regular. There is a 4/6 systolic murmur over the aortic area with radiation of the precordium. ABDOMEN: Soft and nontender. EXTREMITIES: Show no edema. ASSESSMENT: 1. Endocarditis with infected PICC line, now removed. 2. Bioprosthetic aortic valve with prominent murmur. 3. Gastroesophageal reflux disease. 4. History of hypertension. PLAN: We will continue her current antibiotics. Discontinue her gabapentin. Plan for a followup echocardiogram next week and continue to monitor her neutropenia. We will continue to provide palliative care measures for Regina's underlying multiple medical issues. /[id number] GRETTA/OFELIA
[2020-04-17] MEDS: Escitalopram 20 MG Tab PO SCH (08:43)
[2020-04-17] MEDS: Furosemide 20 MG Tab PO SCH (08:43)
[2020-04-17] MEDS: Acetaminophen/HYDROcodone 325-5 MG Tab PO PRN ×3 (08:48→23:19)
[2020-04-17] MEDS: Carvedilol 3.125 MG Tab PO SCH ×2 (08:49→17:43)
--- NOTE | 2020-04-17 08:59 | PN ---
DATE SEEN: 04/17/2020 HISTORY: Hetal is a 65-year-old who has been in swing bed now post recuperation from endocarditis and a brain bleed. She has had high fever over the past week and her antibiotics were changed from ampicillin and ceftriaxone to ciprofloxacin and vancomycin due to suspected drug reaction. She is examined in her bed this morning. She looks bright and alert and appears to be improved. PHYSICAL EXAMINATION: VITAL SIGNS: Temperature max overnight 100.7, 99 this morning; blood pressure 99/54; pulse 88 and regular, respirations 16, O2 saturation 95% on room air. SKIN: Clear without rash. MOUTH: Dry. LUNGS: Clear. Lungs have good breath sounds at the bases with faint rales in each base. HEART: Regular with a 4/6 systolic murmur over the aortic area radiating to the precordium. ABDOMEN: Normal bowel sounds. Soft and nontender. There is slight sternal tenderness left of her sternotomy incision. EXTREMITIES: No edema. ASSESSMENT: 1. Endocarditis with a recent positive blood culture from her PICC line causing it to be removed. 2. Fever and leukopenia, likely secondary to beta-lactam antibiotic and infection. 3. Bioprosthetic aortic valve with prominent murmur. 4. History of intracerebral hemorrhage. 5. History of atrial fibrillation, off anticoagulation, now in regular rhythm. PLAN: 1. We will continue her current antibiotics Cipro and vancomycin. We are holding her amlodipine for now, but continuing her furosemide, carvedilol, Protonix, and Lexapro. 2. We will set her up for an echocardiogram tomorrow and continue other cares and palliative measures. /[id number] GRETTA/OFELIA
[2020-04-17] MEDS: Sodium Chloride 0.9% 1,000 ML IV SCH (17:39)
[2020-04-17] MEDS: Melatonin 3 MG Tab PO SCH (20:38)
[2020-04-17] MEDS: Ibuprofen 400 MG Tab PO PRN (20:44)
[2020-04-18] MEDS: Ciprofloxacin in D5W 400 MG in Premix Bag 1 BAG IV SCH ×2 (05:15)
[2020-04-18] MEDS: Pantoprazole 40 MG Tab.CR PO SCH (05:17)
[2020-04-18] MEDS: Sodium Chloride 0.9% 1,000 ML IV SCH (06:29)
[2020-04-18] MEDS: Escitalopram 20 MG Tab PO SCH (08:12)
[2020-04-18] MEDS: Furosemide 20 MG Tab PO SCH (08:12)
[2020-04-18] MEDS: Carvedilol 3.125 MG Tab PO SCH (08:35)
[2020-04-18] MEDS: Acetaminophen/HYDROcodone 325-5 MG Tab PO PRN (13:09)
--- NOTE | 2020-04-19 08:02 | DISCH ---
DISCHARGE DATE: 04/18/2020 HISTORY: Regina is a 65-year-old woman with an extensive recent medical history who underwent open aortic valve replacement with a bioprosthetic valve back in July 2019. This was associated with repair of an ascending thoracic aneurysm. She subsequently was admitted to [facility] in [place] on October 28, 2019, with Enterococcus sepsis due to endocarditis. The patient was treated as an acute inpatient in [facility] and then on March 12, 2020, she was admitted with an intracranial hemorrhage. She had been on anticoagulation for paroxysmal atrial fibrillation, which was subsequently discontinued. She had a craniotomy on March 12, 2020. She tolerated this satisfactorily, and on approximately March 31, 2020, she was discharged to swing bed at [facility]. She had been tolerating her IV antibiotics satisfactorily until last week when she began to have fevers and steady neutropenia. It was felt this was a beta lactamase reaction and her ampicillin and ceftriaxone were changed to ciprofloxacin and vancomycin on April 15, 2020. In spite of that, she has continued to run fevers. She had one blood culture positive for Staph epidermidis and has had another set of blood cultures drawn today because of fever. In addition to this, she has been extremely neutropenic with a edgar of WBCs on April 15, 2020, 1000 WBCs, hemoglobin 9.5, platelets 328 with 4 neutrophils, 52 lymphocytes, 40 eosinophils, and 4 basophils. This neutropenia has persisted perhaps showing some sign of recovery this morning with her white count at 2200 with 8 neutrophils, 42 lymphs, 16 monos, and 34 eosinophils. Over the past 24 hours, she has also had a change in mental status from being bright and alert to periods of confusion, forgetfulness, and worrisome mental change to both nursing staff and family members. Echocardiogram was done today and sent to Cardiology for stat read with results pending. Phone consultation has been held with Dr. Coats and Dr. Calderon at acute care at [facility] who will accept her in transfer. The patient is sent in serious condition on the following medications: 1. Ciprofloxacin 400 mg IV every 12 hours. 2. Carvedilol 3.125 mg b.i.d. 3. Lexapro 20 mg daily. 4. Protonix 40 mg daily. PLAN: The patient and her have been informed of the transfer plans and are in acceptance. She will go by ambulance and will have followup locally here following her acute care stay in [place]. /[id number] GRETTA/OFELIA
== END 2020-04-18 14:20 | DRG 872 ==
LOC: FB.MS 13:22
PROVIDERS: ADMIT Family Medicine; ATTEND Family Medicine
DX: A41.81 Sepsis due to Enterococcus (principal); I38 Endocarditis, valve unspecified; T80.211A Bloodstream infection due to central venous catheter, initial encounter; I50.32 Chronic diastolic (congestive) heart failure; K21.9 Gastro-esophageal reflux disease without esophagitis; I48.0 Paroxysmal atrial fibrillation; Z20.828 Contact with and (suspected) exposure to other viral communicable diseases; H54.7 Unspecified visual loss; J30.9 Allergic rhinitis, unspecified; F41.9 Anxiety disorder, unspecified; F32.9 Major depressive disorder, single episode, unspecified; E66.9 Obesity, unspecified; Z96.649 Presence of unspecified artificial hip joint; S06.899D Other specified intracranial injury with loss of consciousness of unspecified duration, subsequent encounter; B35.2 Tinea manuum; I11.0 Hypertensive heart disease with heart failure; D64.9 Anemia, unspecified; D70.9 Neutropenia, unspecified; R50.81 Fever presenting with conditions classified elsewhere; I48.91 Unspecified atrial fibrillation; Z79.01 Long term (current) use of anticoagulants; Z95.2 Presence of prosthetic heart valve; Z79.899 Other long term (current) drug therapy; Z87.891 Personal history of nicotine dependence; Z79.52 Long term (current) use of systemic steroids; Z79.82 Long term (current) use of aspirin
CPT/HCPCS: 36410; 36415; 71045; 80048; 80053; 80202; 81001; 82565; 84132; 84460; 85025; 85027; 86140; 87040; 87070; 87077; 87186; 87205; 88104; 90732; 93005; 93306; 94150; 96125-GN; 97110-GO; 97110-GP; 97112-GP; 97116-GP; 97129-GN; 97130-GN; 97161-GP; 97165-GO; 97530-GP; A9270-GY; J0290; J0696; J0744; J1642; J3370; J7030; J7050; U0003

== ENCOUNTER 2020-04-25 08:10 | Inpatient (IN) | payer OTHER, MEDICARE ==
--- NOTE | 2020-04-25 14:39 | PCM.HP.2 ---
H&P History of Present Illness - General Date of Service: 04/25/20 Admit Problem/Dx: Admission Diagnosis/Problem Admission Diagnosis/Problem Endocarditis Source of Information: Patient, Old Records History Limitations: Reports: No Limitations - History of Present Illness Initial Comments - Free Text/Narative: This is a 65-year-old female patient transferred from [facility] here to [facility]. She is a history of hypertension, urinary dissection status post repair, porcine aortic valve, atrial fibrillation that was initially here and then got endocarditis. She was on IV ampicillin and ceftriaxone. IV Vanco and the Cipro started and she was transferred to [facility] because her white count was 4.1 on 1020. Blood cultures showed staph epidermidis. She's was placed on daptomycin is doing well and was transferred back here for rehabilitation and IV antibiotics for endocarditis. She recently had a CVA also. - Related Data Allergies/Adverse Reactions: Allergies Allergy/AdvReac Type Severity Reaction Status Date / Time ampicillin Allergy Other Verified 04/25/20 14:38 ceftriaxone Allergy Other Verified 04/25/20 14:38 X-RAY DDYE Allergy Severe Hives Uncoded 05/12/19 08:55 Home Medications: Home Meds Escitalopram [Lexapro] 20 mg PO DAILY 01/11/19 [History] Sennosides/Docusate Sodium [Senna-S] 1 tab PO BID 03/31/20 [History] Sodium Chloride 0.9% [Saline Flush] 10 ml FLUSH ASDIRECTED PRN 03/31/20 [History] Acetaminophen [Tylenol Extra Strength] 500 mg PO Q4H PRN tablet 04/18/20 [Rx] Pantoprazole [ProTONIX] 40 mg PO 0600 tab.cr 04/18/20 [Rx] carvediloL [Coreg] 3.125 mg PO BIDMEALS tablet 04/18/20 [Rx] Acetaminophen 650 mg PO Q4H PRN 04/25/20 [History] Aspirin 81 mg PO DAILY 04/25/20 [History] DAPTOmycin [Daptomycin] 400 mg IV Q24H 04/25/20 [History] Gabapentin [Neurontin] 300 mg PO TID 04/25/20 [History] Heparin Sodium,Porcine/PF [Heparin 500 Unit/5 ml (100/ml)] 300 unit IV ASD IRECTED PRN 11/03/20 [History] Heparin Sodium,Porcine/PF [Heparin Lock Flush 100 Unit/ml] 300 unit IV BID 04/25/20 [History] Melatonin 6 mg PO BEDTIME 04/25/20 [History] Sodium Chloride 0.9% [Saline Flush] 10 ml FLUSH BID 04/25/20 [History] amLODIPine [Norvasc] 5 mg PO DAILY 04/25/20 [History] Past Medical History HEENT History: Reports: Allergic Rhinitis, Hard of Hearing, Impaired Vision, Other (See Below) Other HEENT History: hayfever Cardiovascular History: Reports: Afib, Bacterial Endocarditis, Blood Clots/VTE/DVT, Heart Valve Replacement, Hypertension, Other (See Below) Other Cardiovascular History: hx afib. arotic dissectiion. blood clot groin. heart surgery put new valve in. 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 OB/BYN History: Musculoskeletal History: Reports: Fracture Neurological History: Reports: Other (See Below) Other Neuro History: INSOMNIA, OTHER EXTRAPYRAMIDAL DISEASE AND ABNORMAL MOVEMENT DISORDER Psychiatric History: Reports: Anxiety, Depression Endocrine/Metabolic History: Reports: Obesity/BMI 30+ Hematologic History: Reports: Blood Transfusion(s) Immunologic History: Reports: None Oncologic (Cancer) History: Reports: None Dermatologic History: Reports: None - Infectious Disease History Infectious Disease History: Reports: Chicken Pox, Measles, Shingles - Past Surgical History HEENT Surgical History: Reports: None Cardiovascular Surgical History: Reports: Valve Replacement Respiratory Surgical History: Reports: None GI Surgical History: Reports: Colonoscopy, EGD Female Surgical History: Reports: Section, Tubal Ligation Endocrine Surgical History: Reports: None Neurological Surgical History: Reports: None Musculoskeletal Surgical History: Reports: Hip Replacement, Other (See Below) Other Musculoskeletal Surgeries/Procedures:: LEFT FOOT SURGERY. right partial hip replacement Dermatological Surgical History: Reports: None Social & Family History - Family History Family Medical History: Noncontributory - Tobacco Use Tobacco Use Status *Q: Former Tobacco User Used Tobacco, but Quit: Yes Month/Year Tobacco Last Used: 15 years ago - Caffeine Use Caffeine Use: Reports: Coffee, Soda - Recreational Drug Use Recreational Drug Use: No - Living Situation & Occupation Occupation: Retired H&P Review of Systems - Review of Systems: Review Of Systems: See Below General: Reports: No Symptoms HEENT: Reports: No Symptoms Pulmonary: Reports: No Symptoms Cardiovascular: Reports: No Symptoms Gastrointestinal: Reports: No Symptoms Genitourinary: Reports: No Symptoms Musculoskeletal: Reports: No Symptoms Skin: Reports: No Symptoms Psychiatric: Reports: No Symptoms Neurological: Reports: No Symptoms Hematologic/Lymphatic: Reports: No Symptoms Immunologic: Reports: No Symptoms Exam - Exam Exam: See Below - Vital Signs Vital Signs: Last Vital Signs Temp 99.0 F 04/25/20 14:22 Pulse 70 04/25/20 14:22 Resp 18 04/25/20 14:22 BP 123/73 04/25/20 14:22 Pulse Ox 98 04/25/20 14:22 Weight: 146 lb 3.2 oz - Exam General: Alert, Oriented, Cooperative HEENT: Hearing Intact, Mucosa Moist & [place], Posterior Pharynx Clear, TMs Clear Neck: Supple, Trachea Midline Lungs: Clear to Auscultation, Normal Respiratory Effort Cardiovascular: Regular Rate, Regular Rhythm, Normal S1, Normal S2, Systolic Murmur. No: Bradycardia, Tachycardia GI/Abdominal Exam: Normal Bowel Sounds, Soft, Non-Tender, No Distention Extremities: Normal Inspection, Non-Tender, No Pedal Edema Skin: Warm, Dry, Intact Neurological: Normal Speech, Normal Tone Neuro Extensive - Mental Status: Alert, Oriented x3, Normal Mood/Affect, Normal Cognition Psychiatric: Alert, Normal Affect, Normal Mood Sepsis Event Note - Evaluation Sepsis Screening Result: No Definite Risk - Focused Exam Vital Signs: Vital Signs Temp Pulse Resp BP Pulse Ox 04/25/20 14:22 99.0 F 70 18 123/73 98 - Problem List (1) Endocarditis SNOMED Code(s): 30938826 ICD Code: I38 - ENDOCARDITIS, VALVE UNSPECIFIED Status: Acute Current Visit: No Problem Details: ID appt on 12/14, Rocephin & Ampicillin through December 18. Cardiothoracic appt was moved from December 05 to December 22. (2) Status post CVA SNOMED Code(s): 157886503 ICD Code: Z86.73 - PRSNL HX OF TIA (TIA), AND CEREB INFRC W/O RESID DEFICITS Status: Acute Current Visit: No Onset Date: ~03/12/20 (3) HTN (hypertension) SNOMED Code(s): 81306826 ICD Code: I10 - ESSENTIAL (PRIMARY) HYPERTENSION Status: Chronic Current Visit: No Qualifiers: (4) S/P aortic valve replacement with porcine valve SNOMED Code(s): 27470786326439, 335948780, 610595934, 37931632596128 ICD Code: Z95.3 - PRESENCE OF XENOGENIC HEART VALVE Status: Chronic Current Visit: No Onset Date: ~07/2019 Problem List Initiated/Reviewed/Updated: Yes Orders Last 24hrs: Active Orders 24 hr Category Date Time Status Patient Status [ADT] Routine ADT 04/25/20 14:29 Ordered Height and Weight [RC] WEEKLY Care 04/25/20 14:29 Ordered Oxygen Therapy [RC] PRN Care 04/25/20 14:29 Ordered Up ad Angy [RC] ASDIRECTED Care 04/25/20 14:29 Ordered VTE/DVT Education [RC] Per Unit Routine Care 04/25/20 14:29 Ordered Vital Signs [RC] PER UNIT ROUTINE Care 04/25/20 14:29 Ordered Consult to Speech Language Pathology [MID LEVEL PRACTITIONER Evaluation Cons 04/25/20 14:33 Ordered and Treatment] [CONS] Routine OT Evaluation and Treatment [CONS] Routine Cons 04/25/20 14:29 Ordered PT Evaluation and Treatment [CONS] Routine Cons 04/25/20 14:29 Ordered Regular Diet [DIET] Diet 04/25/20 Dinner Ordered Acetaminophen [TylenoL] Med 04/25/20 14:31 Ordered 650 mg PO Q4H PRN Aspirin Med 04/26/20 09:00 Ordered 81 mg PO DAILY DAPTOmycin [Cubicin] Med 04/25/20 14:45 Ordered 400 mg IV Q24H Docusate Sodium/Sennosides [Senna Plus] Med 04/25/20 21:00 Ordered 1 tab PO BID Escitalopram [Lexapro] Med 04/26/20 09:00 Ordered 20 mg PO DAILY Gabapentin [Neurontin] Med 04/25/20 21:00 Ordered 300 mg PO TID Heparin Sodium [Heparin Lock Flush 100 Units/ML] Med 04/25/20 14:31 Ordered 300 units IVPUSH ASDIRECTED PRN Heparin Sodium,Porcine/PF [Heparin Lock Flush 100 Unit/ Med 04/25/20 21:00 Ordered ml] 300 unit IV BID Melatonin Med 04/25/20 21:00 Ordered 6 mg PO BEDTIME Pantoprazole [ProTONIX] Med 04/26/20 06:00 Ordered 40 mg PO 0600 Sodium Chloride 0.9% [Saline Flush] Med 04/25/20 14:31 Ordered 10 ml FLUSH ASDIRECTED PRN Sodium Chloride 0.9% [Saline Flush] Med 04/25/20 21:00 Ordered 10 ml FLUSH BID amLODIPine [Norvasc] Med 04/26/20 09:00 Ordered 5 mg PO DAILY carvediloL [Coreg] Med 04/25/20 18:00 Ordered 3.125 mg PO BIDMEALS Resuscitation Status Routine Resus Stat 04/25/20 14:29 Ordered Medication Orders Acetaminophen (Tylenol) 650 mg PO Q4H PRN PRN Reason: Pain/Fever Amlodipine Besylate (Norvasc) 5 mg PO DAILY [facility] Aspirin (Aspirin) 81 mg PO DAILY [facility] Carvedilol (Coreg) 3.125 mg PO BIDMEALS [facility]IVE Daptomycin (Cubicin) 400 mg IV Q24H [facility] Escitalopram Oxalate (Lexapro) 20 mg PO DAILY [facility] Gabapentin (Neurontin) 300 mg PO TID [facility] Heparin Sodium (Porcine) (Heparin Lock Flush 100 Units/Ml) 300 units IVPUSH ASDIRECTED PRN PRN Reason: FLUSH Melatonin (Melatonin) 6 mg PO BEDTIME [facility] Non-Formulary Medication (Heparin Sodium,Porcine/Pf [Heparin Lock Flush 100 Unit/Ml]) 300 unit IV BID [facility] Pantoprazole Sodium (Protonix) 40 mg PO 0600 [facility] Senna/Docusate Sodium (Senna Plus) 1 tab PO BID [facility] Sodium Chloride (Saline Flush) 10 ml FLUSH ASDIRECTED PRN PRN Reason: FLUSH Sodium Chloride (Saline Flush) 10 ml FLUSH BID [facility] Assessment/Plan Comment:: 1. Admit to swing bed. 2. Full code. 3. Daptomycin per orders. 4. Regular diet. 5 PT/OT/speech therapy. 6. Activity per physical therapy and occupational therapy. 7. Follow-up next week with ID. - Mortality Measure Prognosis:: Good
[2020-04-25] MEDS ORDERED: DAPTOmycin 500 MG Vial IV SCH (14:45)
[2020-04-25] MEDS ORDERED: Sodium Chloride 0.9% 10 ML Syringe FLUSH PRN (15:06)
[2020-04-25] MEDS: Carvedilol 3.125 MG Tab PO SCH (19:14)
[2020-04-25] MEDS: Gabapentin 300 MG Cap PO SCH (21:53)
[2020-04-25] MEDS: Melatonin 3 MG Tab PO SCH (21:53)
[2020-04-25] MEDS: Sodium Chloride 0.9% 10 ML Syringe FLUSH SCH (21:54)
[2020-04-26] MEDS: Pantoprazole 40 MG Tab.CR PO SCH (06:13)
[2020-04-26] MEDS: Carvedilol 3.125 MG Tab PO SCH ×2 (08:55→18:50)
[2020-04-26] MEDS: Aspirin 81 MG Tab.Chew PO SCH (08:55)
[2020-04-26] MEDS: amLODIPine 5 MG Tab PO SCH (08:56)
[2020-04-26] MEDS: Escitalopram 20 MG Tab PO SCH (08:56)
[2020-04-26] MEDS: Gabapentin 300 MG Cap PO SCH ×3 (08:56→21:52)
[2020-04-26] MEDS: Sodium Chloride 0.9% 10 ML Syringe FLUSH SCH ×3 (08:57→21:50)
[2020-04-26] MEDS ORDERED: Sodium Chloride 0.9% 250 ML IV SCH (09:00)
[2020-04-26] MEDS: DAPTOmycin 400 MG in Sodium Chloride 0.9% 50 ML IV SCH (09:01)
[2020-04-26] MEDS: Acetaminophen 325 MG Tab PO PRN ×2 (13:43→21:52)
[2020-04-26] MEDS: Melatonin 3 MG Tab PO SCH (21:51)
[2020-04-27] MEDS: Pantoprazole 40 MG Tab.CR PO SCH (06:52)
[2020-04-27] MEDS: Carvedilol 3.125 MG Tab PO SCH ×2 (09:14→17:07)
[2020-04-27] MEDS: amLODIPine 5 MG Tab PO SCH (09:14)
[2020-04-27] MEDS: Aspirin 81 MG Tab.Chew PO SCH (09:14)
[2020-04-27] MEDS: Gabapentin 300 MG Cap PO SCH ×3 (09:14→21:09)
[2020-04-27] MEDS: Sodium Chloride 0.9% 10 ML Syringe FLUSH SCH ×3 (09:15→21:13)
[2020-04-27] MEDS: Escitalopram 20 MG Tab PO SCH (09:15)
[2020-04-27] MEDS: DAPTOmycin 400 MG in Sodium Chloride 0.9% 50 ML IV SCH (09:15)
[2020-04-27] MEDS: Melatonin 3 MG Tab PO SCH (21:09)
[2020-04-28] MEDS: Pantoprazole 40 MG Tab.CR PO SCH (06:00)
[2020-04-28] MEDS: Escitalopram 20 MG Tab PO SCH (09:06)
[2020-04-28] MEDS: Aspirin 81 MG Tab.Chew PO SCH (09:06)
[2020-04-28] MEDS: Carvedilol 3.125 MG Tab PO SCH ×2 (09:06→17:19)
[2020-04-28] MEDS: amLODIPine 5 MG Tab PO SCH (09:07)
[2020-04-28] MEDS: Sodium Chloride 0.9% 10 ML Syringe FLUSH SCH ×3 (09:07→21:23)
[2020-04-28] MEDS: Gabapentin 300 MG Cap PO SCH ×3 (09:09→20:02)
[2020-04-28] MEDS: DAPTOmycin 400 MG in Sodium Chloride 0.9% 50 ML IV SCH (09:11)
[2020-04-28] MEDS: Melatonin 3 MG Tab PO SCH (20:03)
[2020-04-29] MEDS: Pantoprazole 40 MG Tab.CR PO SCH (05:29)
[2020-04-29] MEDS: Aspirin 81 MG Tab.Chew PO SCH (09:18)
[2020-04-29] MEDS: Carvedilol 3.125 MG Tab PO SCH ×2 (09:18→17:37)
[2020-04-29] MEDS: amLODIPine 5 MG Tab PO SCH (09:18)
[2020-04-29] MEDS: Gabapentin 300 MG Cap PO SCH ×3 (09:18→20:28)
[2020-04-29] MEDS: DAPTOmycin 400 MG in Sodium Chloride 0.9% 50 ML IV SCH (09:19)
[2020-04-29] MEDS: Escitalopram 20 MG Tab PO SCH (09:19)
[2020-04-29] MEDS: Sodium Chloride 0.9% 10 ML Syringe FLUSH SCH ×3 (09:20→20:33)
[2020-04-29] MEDS: Melatonin 3 MG Tab PO SCH (20:27)
[2020-04-30] MEDS: Pantoprazole 40 MG Tab.CR PO SCH (06:06)
[2020-04-30] MEDS: Aspirin 81 MG Tab.Chew PO SCH (09:15)
[2020-04-30] MEDS: amLODIPine 5 MG Tab PO SCH (09:15)
[2020-04-30] MEDS: Carvedilol 3.125 MG Tab PO SCH ×2 (09:15→17:18)
[2020-04-30] MEDS: Escitalopram 20 MG Tab PO SCH (09:16)
[2020-04-30] MEDS: DAPTOmycin 400 MG in Sodium Chloride 0.9% 50 ML IV SCH (09:19)
[2020-04-30] MEDS: Sodium Chloride 0.9% 10 ML Syringe FLUSH SCH ×3 (09:19→20:30)
[2020-04-30] MEDS: Melatonin 3 MG Tab PO SCH (20:13)
[2020-04-30] MEDS: Acetaminophen 325 MG Tab PO PRN (20:16)
[2020-04-30] MEDS ORDERED: Gabapentin 300 MG Cap PO SCH (21:00)
--- NOTE | 2020-05-01 07:05 | PN ---
DATE SEEN: 04/30/2020 HISTORY: Regina is a 65-year-old woman from [place] with a history of an extensive severe medical history including bioprosthetic aortic valve replacement with subsequent endocarditis, CVA, atrial fibrillation, and a severe drug reaction to ampicillin and/or ceftriaxone to a beta-lactam antibiotic resulting in high fevers and neutropenia. She is now on vancomycin and ciprofloxacin. She has had dramatic improvement. Her CBC is now normal. She is afebrile. She is eating, walking, and is anxious to go home tomorrow when she has reached the end of her scheduled antibiotics for the endocarditis. PHYSICAL EXAMINATION: GENERAL: She is alert and comfortable. She is of clear mentation. VITAL SIGNS: Blood pressure 132/76, pulse 65 and regular, respirations normal, temperature 98.6. SKIN: Clear without rash. LUNGS: Clear to the bases. HEART: Regular with a 3/6 systolic murmur. ABDOMEN: Soft and nontender. EXTREMITIES: No edema. ASSESSMENT: 1. Endocarditis with 24 hours remaining of antibiotic. 2. Bioprosthetic aortic valve. 3. History of cerebrovascular accident. 4. Atrial fibrillation. 5. Situational depression. PLAN: Final labs will be drawn tomorrow morning and then she will be discharged to home. She will have her routinely scheduled followup as an outpatient. /[id number] GRETTA/OFELIA
[2020-05-01] MEDS: Sodium Chloride 0.9% 10 ML Syringe FLUSH SCH ×2 (07:23→08:41)
[2020-05-01] MEDS: DAPTOmycin 400 MG in Sodium Chloride 0.9% 50 ML IV SCH ×2 (07:24→08:40)
[2020-05-01] MEDS: Carvedilol 3.125 MG Tab PO SCH (08:39)
[2020-05-01] MEDS: Aspirin 81 MG Tab.Chew PO SCH (08:40)
[2020-05-01] MEDS: Escitalopram 20 MG Tab PO SCH (08:40)
[2020-05-01] MEDS: amLODIPine 5 MG Tab PO SCH (08:40)
[2020-05-01 08:41] VITALS: BP 138/77; PULSE 58
--- NOTE | 2020-05-01 16:10 | DISCH ---
DISCHARGE DATE: 05/01/2020 PRIMARY FINAL DIAGNOSES: 1. Endocarditis complicated by severe beta-lactam drug reaction with febrile neutropenic reaction. 2. History of atrial fibrillation with hemorrhagic cerebrovascular accident while on anticoagulation. 3. Depression. OPERATIONS: None. COMPLICATIONS: The patient was admitted to [facility] here for long-term antibiotic after her diagnosis of endocarditis up at [place]. After being here for several days, she began to get a fever and markedly suppressed white count down to 0 neutrophils and fevers up to 103+. Her beta-lactam antibiotics of ampicillin and Rocephin were discontinued and replaced with ciprofloxacin and vancomycin. Her white count slowly started to come back, but she developed a period of confusion and altered mental status. For this reason, she was transferred up to [place] where she was re-evaluated and no treatments were changed and she continued to improve and resolve her neutropenia and fever. She was readmitted back to [facility] on 04/25/2020 and has had a very good recuperation. She had her Infectious Disease consult today in [place] and they have discontinued her antibiotics and removed her PICC line. She is sent home in good condition to continue to take medications as follows: 1. Senokot S 1 daily. 2. Melatonin 6 mg at bedtime. 3. Lexapro 20 mg daily. 4. Carvedilol 3.125 mg b.i.d. 5. Aspirin 81 mg daily. 6. Amlodipine 5 mg daily. 7. Tylenol p.r.n. She is to have follow up as scheduled per her [place] [facility] doctors in [place] and call should there be questions or problems prior to that time. /[id number] GRETTA/OFELIA
== END 2020-05-01 17:35 | disposition home or self-care (01) | DRG 307 ==
LOC: FB.MS 13:36
PROVIDERS: ADMIT Family Medicine; ATTEND Family Medicine
DX: I38 Endocarditis, valve unspecified (principal); I48.91 Unspecified atrial fibrillation; D70.9 Neutropenia, unspecified; F32.9 Major depressive disorder, single episode, unspecified; I10 Essential (primary) hypertension; H54.7 Unspecified visual loss; K21.9 Gastro-esophageal reflux disease without esophagitis; E66.9 Obesity, unspecified; Z68.30 Body mass index [BMI] 30.0-30.9, adult; Z86.19 Personal history of other infectious and parasitic diseases; Z87.448 Personal history of other diseases of urinary system; Z86.79 Personal history of other diseases of the circulatory system; Z86.69 Personal history of other diseases of the nervous system and sense organs; Z86.73 Personal history of transient ischemic attack (TIA), and cerebral infarction without residual deficits; Z95.3 Presence of xenogenic heart valve
CPT/HCPCS: 36415; 82550; 82565; 85025; 86140; 96125-GN; 97110-GO; 97110-GP; 97112-GP; 97116-GP; 97129-GO; 97161-GP; 97165-GO; 97530-GO; A9270-GY; J0878; J1642

== ENCOUNTER 2020-07-22 15:07 | Emergency (ER) | payer MEDICARE, OTHER ==
[2020-07-22] MEDS ORDERED: Clindamycin Phosphate 600 MG/4 ML SDV IM STA (15:37)
--- NOTE | 2020-07-22 15:48 | EDM.PDOC ---
ED HPI GENERAL MEDICAL PROBLEM - General Chief Complaint: General Stated Complaint: UNK BUMP ON HEAD Time Seen by Provider: 07/22/20 15:15 Source of Information: Reports: Patient History Limitations: Reports: No Limitations - History of Present Illness INITIAL COMMENTS - FREE TEXT/NARRATIVE: Presents with swelling or bump on her head ( right temporal area) that has been present for about 3 weeks , this am she was feeling around it when she noted fluid discharge from it , then pus and then blood , has been more sensitive to touch denies any headache , no fever no nausea or vomiting Onset: Gradual Onset Date: 07/01/20 Duration: Week(s): (3), Getting Worse Location: Reports: Head Quality: Reports: Ache, Dull Severity: Mild Improves with: Reports: None Worsens with: Reports: None Context: Reports: Activity Associated Symptoms: Reports: No Other Symptoms. 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 07/22/20 [Rx] Clindamycin Phosphate [Clindagel] 1 applic TP BID #75 gel..ml. 07/22/20 [Rx] Gabapentin [Neurontin] 300 mg PO TID 07/22/20 [History] Pantoprazole [ProTONIX] 40 mg PO DAILY 07/22/20 [History] Sulfamethoxazole/Trimethoprim [Bactrim Ds Tablet] 1 each PO BID #20 tablet 07/22/20 [Rx] Past Medical History HEENT History: Reports: Allergic Rhinitis, Hard of Hearing, Impaired Vision, Other (See Below) Other HEENT History: hayfever Cardiovascular History: Reports: Afib, Bacterial Endocarditis, Blood Clots/VTE/DVT, Heart Valve Replacement, Hypertension, Other (See Below) Other Cardiovascular History: hx afib. aorotic dissection. blood clot groin. heart surgery put new valve in. 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: Musculoskeletal History: Reports: Fracture Neurological History: Reports: Other (See Below) Other Neuro History: INSOMNIA, OTHER EXTRAPYRAMIDAL DISEASE AND ABNORMAL MOVEMENT DISORDER Psychiatric History: Reports: Anxiety, Depression Endocrine/Metabolic History: Reports: Obesity/BMI 30+ Hematologic History: Reports: Blood Transfusion(s) Immunologic History: Reports: None Oncologic (Cancer) History: Reports: None Dermatologic History: Reports: None - Infectious Disease History Infectious Disease History: Reports: Chicken Pox, Measles, Shingles - Past Surgical History HEENT Surgical History: Reports: None Cardiovascular Surgical History: Reports: Valve Replacement Respiratory Surgical History: Reports: None GI Surgical History: Reports: Colonoscopy, EGD Female Surgical History: Reports: Section, Tubal Ligation Endocrine Surgical History: Reports: None Neurological Surgical History: Reports: None Musculoskeletal Surgical History: Reports: Hip Replacement, Other (See Below) Other Musculoskeletal Surgeries/Procedures:: LEFT FOOT SURGERY. right partial hip replacement Dermatological Surgical History: Reports: None Social & Family History - Family History Family Medical History: No Pertinent Family History - Tobacco Use Tobacco Use Status *Q: Unknown Ever Used Tobacco - Caffeine Use Caffeine Use: Reports: Coffee, Soda - Recreational Drug Use Recreational Drug Use: No - Living Situation & Occupation Occupation: Retired ED ROS GENERAL - Review of Systems Review Of Systems: Comprehensive ROS is negative, except as noted in HPI. Constitutional: Denies: Fever, Chills, Malaise HEENT: Reports: No Symptoms Respiratory: Reports: No Symptoms Cardiovascular: Reports: No Symptoms Endocrine: Reports: No Symptoms. Denies: Fatigue GI/Abdominal: Reports: No Symptoms Skin: Reports: Lumps (on scalp) Neurological: Reports: No Symptoms. Denies: Confusion, Dizziness, Headache, Numbness Psychiatric: Reports: No Symptoms Hematologic/Lymphatic: Reports: No Symptoms Immunologic: Reports: No Symptoms ED EXAM, GENERAL - Physical Exam Exam: See Below Exam Limited By: No Limitations General Appearance: Alert, WD/WN, No Apparent Distress Eye Exam: Bilateral Eye: EOMI Ears: Normal External Exam Nose: Normal Inspection Throat/Mouth: Normal Inspection, Normal Oropharynx Head: Other (lesion on the right temporal area , about [id number] , along scar she had fordrainiagn cerebral hemorrhage) Neck: Supple, Non-Tender Respiratory/Chest: Lungs Clear, Normal Breath Sounds Cardiovascular: Regular Rate, Rhythm GI/Abdominal: Soft, Non-Tender Back Exam: Full Range of Motion Extremities: Normal Inspection, Normal Range of Motion Neurological: Alert, Oriented, CN II-XII Intact, Normal Cognition, Normal Gait Psychiatric: Normal Affect Skin Exam: Warm, Dry, Intact Course - Vital Signs Last Recorded V/S: Last Vital Signs Temp 36.8 C 07/22/20 15:10 Pulse 74 07/22/20 15:10 Resp 16 07/22/20 15:10 BP 177/90 H 07/22/20 15:10 Pulse Ox 98 07/22/20 15:10 - Orders/Labs/Meds Meds: Medications Discontinued Medications Generic Name Dose Route Start Last Admin Trade Name Freq PRN Reason Stop Dose Admin Clindamycin Phosphate 600 mg 07/22/20 15:37 Cleocin IM 07/22/20 15:38 NOW STA - Re-Assessments/Exams Free Text/Narrative Re-Assessment/Exam: 07/22/20 15:55 pt given IM clindamycin will follow up with PCP pt encouraged not to touch lesion Departure - Departure Time of Disposition: 16:10 Disposition: Home, Self-Care 01 Condition: Fair Clinical Impression: Abscess or cellulitis of scalp - Discharge Information *PRESCRIPTION DRUG MONITORING PROGRAM REVIEWED*: Not Applicable *COPY OF PRESCRIPTION DRUG MONITORING REPORT IN PATIENT CATY: Not Applicable Prescriptions: Sulfamethoxazole/Trimethoprim [Bactrim Ds Tablet] 1 each PO BID #20 tablet Clindamycin Phosphate [Clindagel] 1 applic TP BID #75 gel..ml. Clindamycin Phosphate 1 applic TP BID #60 gel..gram. Instructions: Cellulitis, Adult, [id number] Referrals: Mulugeta Rosa MD [Primary Care Provider] - Forms: ED Department Discharge Additional Instructions: 1) Warm compress to the affected area 2 times daily for about 10mins 2) Keep wound area open , Avoid touching the area 3) Use either clindgel or solution on the scalp avoid other creams to the area 4) make appointment to see Dr Espinal on Friday or Friday for a recheck 5) Call with any concerns Sepsis Event Note (ED) - Evaluation Sepsis Screening Result: No Definite Risk - Focused Exam Vital Signs: Vital Signs Temp Pulse Resp BP Pulse Ox 07/22/20 15:10 36.8 C 74 16 177/90 H 98
== END 2020-07-22 16:15 | disposition home or self-care (01) ==
LOC: FB.ED 15:07
DX: L98.8 Other specified disorders of the skin and subcutaneous tissue (principal); I10 Essential (primary) hypertension; E66.9 Obesity, unspecified; I48.91 Unspecified atrial fibrillation; K21.9 Gastro-esophageal reflux disease without esophagitis; Z88.1 Allergy status to other antibiotic agents; Z91.041 Radiographic dye allergy status; Z98.2 Presence of cerebrospinal fluid drainage device; Z79.899 Other long term (current) drug therapy
CPT/HCPCS: 96372; 99282; 99283; J3490